=== PATIENT | female | born 1950 | race Caucasian/White ===

== ENCOUNTER → 2017-07-30 | Day surgery (SDC) | END | disposition home or self-care (01) | DX: C10.9 Malignant neoplasm of oropharynx, unspecified (principal); I10 Essential (primary) hypertension; F17.200 Nicotine dependence, unspecified, uncomplicated | CPT/HCPCS: 00320; 31535; 88305; 93005; J0295; J0330; J2250; J3010; J7120 ==

== ENCOUNTER 2017-09-29 17:19 | Inpatient (IN) ==
--- NOTE | 2017-09-29 20:29 | ED ---
HPI General Chief complaint: Neuro Symptoms/Deficit Stated complaint: Confusion/lost vision/ DR SENT Time Seen by Provider: 09/29/17 20:05 History of Present Illness HPI narrative: Patient 67-year-old female presents to the emergency department for evaluation of confusion as well as vision loss. Accompanied by her daughter who states the patient has a history of throat cancer followed by . jovita is doing frequent radiation therapy but no chemotherapy. 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 She went to Dr. dorado office today and that her level of confusion was referred to the emergency department. Patient has been taking benzodiazepines prior to her radiation therapy. Daughter states that she has not been taking excess of this. She has been acting very drowsy however. She is alert and awake and oriented to self time and place but not situation. Appears groggy slow to answer but is keenly alert. Location: eyes Radiation: non-radiation Severity: moderate Pain Consistency: constant Relieving factors: none Exacerbating factors: none Associated symptoms: confusion Related Data Home Medications Medication Instructions Recorded Confirmed amlodipine 5 mg PO DAILY 09/30/17 09/30/17 hydrochlorothiazide 12.5 mg PO DAILY 09/30/17 09/30/17 hydrocodone-acetaminophen 1 ml PO Q4-6H PRN 09/30/17 09/30/17 lorazepam 1 mg PO DAILY 09/30/17 09/30/17 metoprolol succinate 25 mg PO DAILY 09/30/17 09/30/17 mouthwash compounding base 227 5 ml MUCOUS MEMBRANE ACHS 09/30/17 09/30/17 Allergies Allergy/AdvReac Type Severity Reaction Status Date / Time No Known Allergies Allergy Unverified 07/29/17 12:09 Review of Systems ROS Unobtainable unobtainable due to mental status PMFSH Medical History Medical History Hypertension (Acute) Osteoporosis (Acute) Retina disorder, right (Acute) Throat cancer (Acute) Surgical History Surgical History No history of previous surgery (Acute) Social History Social History Substance History: No History of Abuse Second Hand Smoke Exposure: No Smoking Status: Current every day smoker Tobacco Type: Cigarettes How Often Do You Have a Drink Containing Alcohol: Monthly or less Recent Travel in [facility] within the Last 8 Weeks: No Recent Out of Country Travel within the Last 8 Weeks: No Exam Narrative Exam Narrative: GENERAL: Well-developed very thin female in no obvious distress peer SKIN: Focused skin assessment warm/dry. HEAD: Atraumatic. Normocephalic. EYES: Pupils equal and round. No scleral icterus. No injection or drainage. ENT: No nasal bleeding or discharge. Mucous membranes pink and moist. NECK: Trachea midline. No JVD. CARDIOVASCULAR: Regular rate and rhythm. No murmur appreciated. RESPIRATORY: No accessory muscle use. Clear to auscultation. Breath sounds equal bilaterally. GASTROINTESTINAL: Abdomen soft, non-tender, nondistended. Hepatic and splenic margins not palpable. MUSCULOSKELETAL: No obvious deformities. No clubbing. No cyanosis. No edema. NEUROLOGICAL: Awake and alert, GCS of 14, mildly confused and somewhat slow to respond. Cranial nerves appear to be all intact, extraocular movements are normal. Does not cooperate well with visual field testing. She is oriented to person place and time, fairly poor insight into why she is here. Follows commands in all 4 extremities with no weakness appreciated. PSYCHIATRIC: Appropriate mood and affect; insight and judgment are poor. Course Initial Documented Vital Signs Temperature 99.0 F 09/29/17 17:29 Pulse Rate 88 09/29/17 17:29 Respiratory Rate 18 09/29/17 17:29 Blood Pressure 143/65 H 09/29/17 17:29 Pulse Oximetry 98 09/29/17 17:29 Last Documented Vital Signs Temperature 97.6 F 09/30/17 02:53 Pulse Rate 84 09/30/17 05:52 Respiratory Rate 14 09/30/17 05:52 Blood Pressure 130/69 09/30/17 05:52 Pulse Oximetry 97 09/29/17 23:00 Medical Decision Making [facility] Narrative Medical decision making narrative: Patient room to the emergency department, CT of the head shows evidence of recent right MCA stroke which would explain her symptoms. Aspirin was given in the emergency department, she was out of the window for any stroke alert, vision is somewhat intact at least in the left thigh as evidenced by her ability to follow my finger during extract movement testing. No focal weakness otherwise. Patient was discussed her results and updated her daughter as well. Recommended admission to the hospital and they are agreeable. Discussed with Dr. Ernst. Differential Diagnosis Differential Diagnosis: Acute CVA, brain mass, throat cancer, electrolyte abnormality Lab Data Result diagrams: 09/29/17 20:35 09/29/17 20:35 Lab Results 09/29/17 09/29/17 09/29/17 Range/Units 20:10 20:35 20:35 WBC (4.0-11.0) th/mm3 RBC (4.00-5.30) mil/mm3 Hgb (11.6-15.3) gm/dL Hct (35.0-46.0) % MCV (80.0-100.0) fL MCH (27.0-34.0) pg MCHC (32.0-36.0) % RDW (11.6-17.2) % Plt Count (150-450) th/mm3 MPV (7.0-11.0) fL Neut % (Auto) (16.0-70.0) % Lymph % (Auto) (9.0-44.0) % [place] % (Auto) (0.0-8.0) % Eos % (Auto) (0.0-4.0) % Baso % (Auto) (0.0-2.0) % Neut # (Auto) (1.8-7.7) th/mm3 Lymph # (Auto) (1.0-4.8) th/mm3 [place] # (Auto) (0.0-0.9) th/mm3 Eos # (Auto) (0.0-0.4) th/mm3 Baso # (Auto) (0.0-0.2) th/mm3 WBC Differential Differential Comment PT 10.6 (9.8-11.6) sec INR 1.0 Ratio APTT 25.4 (24.3-30.1) sec Sodium (136-145) meq/L Potassium (3.5-5.1) meq/L Chloride (98-107) meq/L Carbon Dioxide (21.0-32.0) meq/L Anion Gap (5-15) meq/L BUN (7-18) mg/dL Creatinine (0.50-1.00) mg/dL Estimated GFR (>89) mL/min POC Glucose 120 H (68-110) mg/dl Random Glucose (74-106) mg/dL Lactic Acid (0.4-2.0) mmol/L Calcium (8.5-10.1) mg/dL Total Bilirubin (0.2-1.0) mg/dL AST (15-37) U/L ALT (10-53) U/L Alkaline Phosphatase (45-117) U/L Ammonia (11-32) mcmol/L Total Creatine Kinase (26-192) U/L Troponin I (0.02-0.05) ng/mL Total Protein (6.4-8.2) g/dL Albumin (3.4-5.0) g/dL TSH 0.079 L (0.358-3.740) uIU/mL Urine Color (Yellw/Straw) Urine Clarity (Clear) Urine pH (5.0-8.5) Ur Specific Mitchell (1.002-1.035) Urine Protein (Neg-Trace) mg/dL Urine Glucose (UA) (Negative) mg/dL Urine Ketones (Negative) mg/dL Urine Occult Blood (Negative) Urine Nitrate (Negative) Urine Bilirubin (Negative) Urine Urobilinogen (Less than 2) mg/dL Ur Leukocyte Esterase (Negative) Urine RBC (0-3) /hpf Urine WBC (0-5) /hpf Ur Squamous Epith Cells (0-5) /hpf Hyaline Casts (0-3) /lpf Urine Mucus (Occasional) /lpf Micro UA Comment Urine Culture Comments 09/29/17 09/29/17 09/29/17 Range/Units 20:35 20:35 20:55 WBC 5.3 (4.0-11.0) th/mm3 RBC 3.81 L (4.00-5.30) mil/mm3 Hgb 12.1 (11.6-15.3) gm/dL Hct 36.3 (35.0-46.0) % MCV 95.3 (80.0-100.0) fL MCH 31.8 (27.0-34.0) pg MCHC 33.4 (32.0-36.0) % RDW 13.5 (11.6-17.2) % Plt Count 260 (150-450) th/mm3 MPV 8.1 (7.0-11.0) fL Neut % (Auto) 69.2 (16.0-70.0) % Lymph % (Auto) 17.6 (9.0-44.0) % [place] % (Auto) 11.8 H (0.0-8.0) % Eos % (Auto) 1.1 (0.0-4.0) % Baso % (Auto) 0.3 (0.0-2.0) % Neut # (Auto) 3.7 (1.8-7.7) th/mm3 Lymph # (Auto) 0.9 L (1.0-4.8) th/mm3 [place] # (Auto) 0.6 (0.0-0.9) th/mm3 Eos # (Auto) 0.1 (0.0-0.4) th/mm3 Baso # (Auto) 0.0 (0.0-0.2) th/mm3 WBC Differential . Differential Comment Auto diff final PT (9.8-11.6) sec INR Ratio APTT (24.3-30.1) sec Sodium 138 (136-145) meq/L Potassium 3.2 L (3.5-5.1) meq/L Chloride 98 (98-107) meq/L Carbon Dioxide 28.4 (21.0-32.0) meq/L Anion Gap 12 (5-15) meq/L BUN 8 (7-18) mg/dL Creatinine 0.50 (0.50-1.00) mg/dL Estimated GFR Greater than 89 (>89) mL/min POC Glucose (68-110) mg/dl Random Glucose 94 (74-106) mg/dL Lactic Acid 1.1 (0.4-2.0) mmol/L Calcium 9.7 (8.5-10.1) mg/dL Total Bilirubin 0.7 (0.2-1.0) mg/dL AST 16 (15-37) U/L ALT 24 (10-53) U/L Alkaline Phosphatase 62 (45-117) U/L Ammonia (11-32) mcmol/L Total Creatine Kinase 27 (26-192) U/L Troponin I Less than 0.02 L (0.02-0.05) ng/mL Total Protein 7.5 (6.4-8.2) g/dL Albumin 3.7 (3.4-5.0) g/dL TSH (0.358-3.740) uIU/mL Urine Color (Yellw/Straw) Urine Clarity (Clear) Urine pH (5.0-8.5) Ur Specific Mitchell (1.002-1.035) Urine Protein (Neg-Trace) mg/dL Urine Glucose (UA) (Negative) mg/dL Urine Ketones (Negative) mg/dL Urine Occult Blood (Negative) Urine Nitrate (Negative) Urine Bilirubin (Negative) Urine Urobilinogen (Less than 2) mg/dL Ur Leukocyte Esterase (Negative) Urine RBC (0-3) /hpf Urine WBC (0-5) /hpf Ur Squamous Epith Cells (0-5) /hpf Hyaline Casts (0-3) /lpf Urine Mucus (Occasional) /lpf Micro UA Comment Urine Culture Comments 09/29/17 09/29/17 09/29/17 Range/Units 20:55 21:46 23:43 WBC (4.0-11.0) th/mm3 RBC (4.00-5.30) mil/mm3 Hgb (11.6-15.3) gm/dL Hct (35.0-46.0) % MCV (80.0-100.0) fL MCH (27.0-34.0) pg MCHC (32.0-36.0) % RDW (11.6-17.2) % Plt Count (150-450) th/mm3 MPV (7.0-11.0) fL Neut % (Auto) (16.0-70.0) % Lymph % (Auto) (9.0-44.0) % [place] % (Auto) (0.0-8.0) % Eos % (Auto) (0.0-4.0) % Baso % (Auto) (0.0-2.0) % Neut # (Auto) (1.8-7.7) th/mm3 Lymph # (Auto) (1.0-4.8) th/mm3 [place] # (Auto) (0.0-0.9) th/mm3 Eos # (Auto) (0.0-0.4) th/mm3 Baso # (Auto) (0.0-0.2) th/mm3 WBC Differential Differential Comment PT (9.8-11.6) sec INR Ratio APTT (24.3-30.1) sec Sodium (136-145) meq/L Potassium (3.5-5.1) meq/L Chloride (98-107) meq/L Carbon Dioxide (21.0-32.0) meq/L Anion Gap (5-15) meq/L BUN (7-18) mg/dL Creatinine (0.50-1.00) mg/dL Estimated GFR (>89) mL/min POC Glucose 100 (68-110) mg/dl Random Glucose (74-106) mg/dL Lactic Acid (0.4-2.0) mmol/L Calcium (8.5-10.1) mg/dL Total Bilirubin (0.2-1.0) mg/dL AST (15-37) U/L ALT (10-53) U/L Alkaline Phosphatase (45-117) U/L Ammonia Less than 10 L (11-32) mcmol/L Total Creatine Kinase (26-192) U/L Troponin I (0.02-0.05) ng/mL Total Protein (6.4-8.2) g/dL Albumin (3.4-5.0) g/dL TSH (0.358-3.740) uIU/mL Urine Color Shi (Yellw/Straw) Urine Clarity Turbid H (Clear) Urine pH 7.0 (5.0-8.5) Ur Specific Mitchell 1.005 (1.002-1.035) Urine Protein Negative (Neg-Trace) mg/dL Urine Glucose (UA) Negative (Negative) mg/dL Urine Ketones 20 (Negative) mg/dL Urine Occult Blood Small H (Negative) Urine Nitrate Negative (Negative) Urine Bilirubin Negative (Negative) Urine Urobilinogen Less than 2 (Less than 2) mg/dL Ur Leukocyte Esterase Small H (Negative) Urine RBC Less than 1 (0-3) /hpf Urine WBC 8 H (0-5) /hpf Ur Squamous Epith Cells 2 (0-5) /hpf Hyaline Casts 1 (0-3) /lpf Urine Mucus Few H (Occasional) /lpf Micro UA Comment Culture not ind Urine Culture Comments Culture not ind Imaging Data Radiologist's impression: ITS Impressions Head CT 09/29/17 20:05 CONCLUSION: 1. Suspected very recent areas of infarction involving the posterior right middle cerebral artery territory involving portions of the right temporal parietal and occipital lobes. There also appears to be smaller recent infarct seen in the posterior medial left occipital lobe. 2. Suspected underlying small vessel ischemic change in the white matter. Head MRI 09/29/17 22:13 CONCLUSION: 1. MRI examination confirms CT findings. There is acute infarction involving the right posterior temporal, parietal mid convexities, and anterior occipital mid convexities as well as the medial left occipital lobe. 2. No acute hemorrhage, herniation or mass. 3. Moderate periventricular ischemic white matter demyelination. Head MRA 09/29/17 22:13 CONCLUSION: 1. Occluded origin of the right MCA temporal branch with opacification of the more distal M2 branches likely via collaterals. 2. Occluded left posterior cerebral artery. 3. Occluded distal left vertebral artery. Discharge Plan Discharge Disposition Patient Disposition: 30 Still Patient Discharge Details Diagnosis: Stroke Physicians Team ED Provider: Frankie Perez Primary Care Provider: NON STAFF,PROVIDER Attending Provider: Cathy Schneider Other Providers: ; Paolo Gonzalez ; Amaury Lopez ; Malvin Warren Status ED Status: Admitted Patient
[2017-09-29 20:53] LABS: Baso % (Auto) 0.3 % (0.0-2.0); Eos # (Auto) 0.1 th/mm3 (0.0-0.4); Eos % (Auto) 1.1 % (0.0-4.0); Hematocrit 36.3 % (35.0-46.0); Hemoglobin 12.1 gm/dL (11.6-15.3); Lymph # (Auto) 0.9 th/mm3 (1.0-4.8); Lymph % (Auto) 17.6 % (9.0-44.0); Mean Corpuscular HGB Conc 33.4 % (32.0-36.0); Mean Corpuscular Hemoglobin 31.8 pg (27.0-34.0); Mean Corpuscular Volume 95.3 fL (80.0-100.0); Mean Platelet Volume 8.1 fL (7.0-11.0); Mono # (Auto) 0.6 th/mm3 (0.0-0.9); Mono % (Auto) 11.8 % (0.0-8.0); Neut # (Auto) 3.7 th/mm3 (1.8-7.7); Neut % (Auto) 69.2 % (16.0-70.0); Platelet Count 260 th/mm3 (150-450); Red Blood Count 3.81 mil/mm3 (4.00-5.30); Red Cell Distribution Width 13.5 % (11.6-17.2); White Blood Count 5.3 th/mm3 (4.0-11.0)
[2017-09-29 21:00] LABS: Activated Partial Thrombo Time 25.4 sec (24.3-30.1); Prothrombin Time 10.6 sec (9.8-11.6)
[2017-09-29 21:10] LABS: Albumin 3.7 g/dL (3.4-5.0); Anion Gap 12 meq/L (5-15); Aspartate Aminotransferase 16 U/L (15-37); Blood Urea Nitrogen 8 mg/dL (7-18); Calcium 9.7 mg/dL (8.5-10.1); Carbon Dioxide 28.4 meq/L (21.0-32.0); Chloride 98 meq/L (98-107); Glomerular Filtration Rate Greater Than 89 mL/min (>89); Glucose,Random 94 mg/dL (74-106); Potassium 3.2 meq/L (3.5-5.1); Sodium 138 meq/L (136-145)
[2017-09-29 21:14] LABS: Alanine Aminotransferase 24 U/L (10-53); Alkaline Phosphatase 62 U/L (45-117); Total Protein 7.5 g/dL (6.4-8.2)
[2017-09-29 21:24] LABS: Creatine Kinase 27 U/L (26-192)
--- NOTE | 2017-09-29 21:38 | CT ---
EXAM DATE: 09/29/2017 8:36 PM EDT AGE/SEX: 67 years / Female INDICATIONS: Confusion and loss of vision. CLINICAL DATA: This is the patient's initial encounter. Patient reports that signs and symptoms have been present for 1 day and indicates a pain score of 0/10. MEDICAL/SURGICAL HISTORY: Hypertension. Esophageal cancer. Stroke. Chemotherapy. . RADIATION DOSE: 37.12 CTDI (mGy) COMPARISON: No prior exams available for comparison. TECHNIQUE: CT of the head without contrast. Using automated exposure control and adjustment of the mA and/or kV according to patient size, radiation dose was kept as low as reasonably achievable to ob tain optimal diagnostic quality images. DICOM format image data is available electronically for revi ew and comparison. FINDINGS: Cerebrum: The ventricles are normal for age. There is an area of low density seen in the right post erior temporal, posterior parietal lobe and extending into the anterior right occipital lobe at the p osterior middle cerebral artery territory consistent with a very recent infarct. There also appears t o be some low density in the posterior medial left occipital lobe presumably from recent infarct. No hemorrhage is seen. No evidence of midline shift. No extraaxial fluid collections are seen. There is areas of decreased density in the cerebral white matter. Posterior Fossa: The cerebellum and brainstem are intact. The 4th ventricle is midline. The cerebe llopontine angle is unremarkable. Extracranial: The visualized portion of the orbits is intact. Skull: The calvaria is intact. No evidence of skull fracture. CONCLUSION: 1. Suspected very recent areas of infarction involving the posterior right middle cerebral artery te rritory involving portions of the right temporal parietal and occipital lobes. There also appears to be smaller recent infarct seen in the posterior medial left occipital lobe. 2. Suspected underlying small vessel ischemic change in the white matter. Electronically signed by: Simeon Booth MD 09/29/2017 9:37 PM EDT
[2017-09-29 23:00] LABS: Bilirubin,Urine Negative (Negative); Clarity,Urine Turbid (Clear); Color,Urine Amber (Yellw/Straw); Glucose,Urine (UA) Negative (Negative); Hyaline Casts,Urine 1 /lpf (0-3); Leukocyte Esterase,Urine Small (Negative); Mucus,Urine Few /lpf (Occasional); Nitrite,Urine Negative (Negative); Specific Gravity,Urine 1.005 (1.002-1.035); Squamous Epithelial Cell,Urine 2 /hpf (0-5)
[2017-09-29] MEDS ORDERED: Dextrose 50% in Water 50 ML Vial IV.PUSH PRN ×2 (23:19→23:20)
--- NOTE | 2017-09-29 23:37 | MR ---
EXAM DATE: 09/29/2017 11:26 PM EDT AGE/SEX: 67 years / Female INDICATIONS: Stroke. Loss of vision in left eye x 2 days CLINICAL DATA: This is the patient's initial encounter. Patient reports that signs and symptoms have been present for 1 day and indicates a pain score of 0/10. MEDICAL/SURGICAL HISTORY: . HTN, Throat Ca . Radiation COMPARISON: [facility] – [place], [place] HEAD W/O CONTRAST, 09/29/2017. . TECHNIQUE: Multiplanar, multisequence examination of the brain was performed without contrast. FINDINGS: Cerebrum: The ventricles are normal for age. No evidence of midline shift, mass lesion, or hemorrha ge. No extraaxial fluid collections are seen. The pituitary gland and suprasellar cistern are normal in configuration. White Matter: Moderate periventricular and focal deep white matter T2 prolongation. Posterior Fossa: The cerebellum and brainstem are intact. The 4th ventricle is midline. The cerebel lopontine angle is unremarkable. The cerebellar tonsils are normal in position. Diffusion Imaging: Restricted diffusion involving the right cephalad posterior temporal, parietal mi d convexities, and anterior occipital mid convexities. There is also more subtle restricted diffusion involving the medial left occipital lobe. Extracranial: The visualized portions of the orbits and paranasal sinuses are unremarkable. CONCLUSION: 1. MRI examination confirms CT findings. There is acute infarction involving the right posterior tem poral, parietal mid convexities, and anterior occipital mid convexities as well as the medial left oc cipital lobe. 2. No acute hemorrhage, herniation or mass. 3. Moderate periventricular ischemic white matter demyelination. Electronically signed by: Alon Schilling MD 09/29/2017 11:36 PM EDT
--- NOTE | 2017-09-29 23:51 | MR ---
EXAM DATE: 09/29/2017 11:40 PM EDT AGE/SEX: 67 years / Female INDICATIONS: Stroke. Loss of vision in left eye x 2 days. CLINICAL DATA: This is the patient's initial encounter. Patient reports that signs and symptoms have been present for 1 day and indicates a pain score of 0/10. MEDICAL/SURGICAL HISTORY: . HTN, Throat Ca . [place] [facility] [place]/2017. . TECHNIQUE: 3D [id number] MRA was performed. Source images, multiplanar STS MIP, and 3D volum e MIP reconstructions were reviewed. FINDINGS: Anterior Circulation: Intracranial Carotid Arteries: Patent. CURRY: There is no evidence for aneurysm, vessel truncation or stenosis, and no evidence for vascular m alformation. MCA: Temporal branch of the right MCA appears occluded at the origin. Distal M2 branches are opacifie d. There is no evidence for aneurysm or vascular malformation. Posterior Circulation: Distal Vertebral Arteries: Distal left vertebral artery is not visualized and likely occluded. Basilar Artery: There is no evidence for aneurysm, vessel truncation or stenosis, and no evidence for vascular malformation. ACCESS CLINICIAN and Cerebellar Branches: Left posterior cerebral artery appears occluded. The right posterior alicia tebral artery is patent without evidence for significant flow-limiting stenosis or aneurysm. CONCLUSION: 1. Occluded origin of the right MCA temporal branch with opacification of the more distal M2 branche s likely via collaterals. 2. Occluded left posterior cerebral artery. 3. Occluded distal left vertebral artery. Electronically signed by: Alon Schilling MD 09/29/2017 11:50 PM EDT
[2017-09-30] MEDS ORDERED: Morphine Inj 4 MG/ML Vial IV.PUSH PRN (04:19)
--- NOTE | 2017-09-30 04:21 | P.HP ---
History of Present Illness Service: [facility] Primary Care Physician: PROVIDER NON STAFF Chief Complaint: Confusion/vision loss History of Present Illness: 67-year-old female with a past medical history significant for throat cancer currently undergoing radiation therapy presents to the emergency department for the evaluation of altered mental status and visual changes. The patient is blind in her right eye and her daughter who provides most of her medical history states this is because the right eye "" 6 months ago, secondary to a stroke. She is unable to tell me the exact pathology. The daughter reports that yesterday her brother noticed that his mother was confused and acting strange. She also began to complain of visual changes in her left eye. While at work earlier yesterday the patient called her daughter and said that she could not see at all. She also has been confused and disoriented repeating the same statements and not oriented to time or location. The patient's daughter took her to a retina specialist who stated there was nothing wrong with her eye. She went to her radiation treatment and saw Dr. Lopez who recommended immediate transfer to the emergency department for further evaluation. MRI significant for acute stroke. Inpatient Certification: I certify that the inpatient services were ordered in accordance with Medicare regulations governing the order. This includes certification that hospital inpatient services are reasonable and necessary and in the case of services not specified as inpatient-only under 42 CFR 419.22(n), that they are appropriately provided as inpatient services in accordance to with the 2-midnight benchmark under 43 CFR 412.3(e) Estimated Total Length of Stay (Days): 2 Plans for Post Hospital Care: Not yet determined Review of Systems All other systems reviewed negative except as stated in HPI [facility] - History History Provided By: Family Member - Medical History Medical History: Medical History (Last Updated 09/29/17 @ 20:28 by Kevin Cheema RN) Hypertension Osteoporosis Retina disorder, right Throat cancer - Surgical History Surgical History: Surgical History (Last Updated 09/29/17 @ 20:28 by Kevin Cheema RN) No history of previous surgery - Tobacco History Second Hand Smoke Exposure: No Tobacco Use In Past 30 Days: Yes Smoking Status: Current every day smoker Tobacco Type: Cigarettes - Alcohol History How Often Do You Have a Drink Containing Alcohol: Monthly or less - Substance Use History Substance History: No History of Abuse - Travel History Recent Travel in the [place] Within the Last 8 Weeks: No Recent Travel Out of the Country Within the Last 8 Weeks: No - Immunization History Tetanus Immunization: Unsure Hx Influenza Vaccine This Season: No Medications and Allergies Active Medications: Active Medications Aspirin (Aspirin) 325 mg PO DAILY ANAIS Dextrose (D50w Vial) 50 ml IV.PUSH UNSCH PRN PRN Reason: PER HYPOGLYCEMIA PROTOCOL Dextrose (D50w Vial) 50 ml IV.PUSH UNSCH PRN PRN Reason: PER HYPOGLYCEMIA PROTOCOL Glucagon (Glucagon Inj) 1 mg OTHER UNSCH PRN PRN Reason: for Hypoglycemia Protocol Glucagon (Glucagon Inj) 1 mg OTHER PRN PRN PRN Reason: for Hypoglycemia Protocol Insulin Aspart (Novolog Insulin Suppl Scale Inj) 0 unit SQ ACHS AND 3AM ANAIS; Protocol Sodium Chloride (Ns Flush) 2 ml IV.FLUSH PRN PRN PRN Reason: FLUSH AFTER USING IV ACCESS Last Admin: 09/29/17 22:44 Dose: 2 ml Sodium Chloride (Ns Flush) 2 ml IV.FLUSH BID ANAIS Sodium Chloride (Ns Flush) 2 ml IV.FLUSH PRN PRN PRN Reason: FLUSH AFTER USING IV ACCESS Allergies Allergy/AdvReac Type Severity Reaction Status Date / Time No Known Allergies Allergy Unverified 07/29/17 12:09 Exam Vital signs: Vital Signs 09/29/17 17:29 09/29/17 20:26 09/29/17 20:40 Temperature 99.0 F Pulse Rate 88 Respiratory Rate 18 Blood Pressure 143/65 H Pulse Oximetry 98 98 98 09/29/17 22:14 09/29/17 23:00 09/30/17 02:53 Temperature 97.3 F L 97.3 F L 97.6 F Pulse Rate 97 H 75 72 Respiratory Rate 20 16 16 Blood Pressure 151/101 H 128/66 130/65 Pulse Oximetry 97 97 Intake & Output 09/29/17 09/29/17 09/30/17 06:59 18:59 06:59 Weight 54.431 kg 77.111 kg Narrative: Gen.: No acute distress Head: Normocephalic. Atraumatic. EENT: Pupils equal round and reactive to light. Nose without drainage. Airway intact. Throat without injection. Cardiovascular: Regular rate and rhythm. No murmurs, rubs or gallops. Respiratory: Lungs clear to auscultation bilaterally. No wheezes or rhonchi. Abdomen: Soft, nontender, nondistended. No peritoneal signs. Musculoskeletal: No gross deformities. No edema. Skin: No obvious rashes or erythema. Neuro: Slow to answer questions however ANO 3. 5/5 strength throughout. No facial droop or slurred speech. Unable to identify close vision objects. Results - Labs CBC & Chem 7: 09/29/17 20:35 09/29/17 20:35 Labs: Laboratory Results - last 24 hr 09/29/17 09/29/17 09/29/17 20:10 20:35 20:35 WBC RBC Hgb Hct MCV MCH MCHC RDW Plt Count MPV Neut % (Auto) Lymph % (Auto) [place] % (Auto) Eos % (Auto) Baso % (Auto) Neut # (Auto) Lymph # (Auto) [place] # (Auto) Eos # (Auto) Baso # (Auto) WBC Differential Differential Comment PT 10.6 INR 1.0 APTT 25.4 Sodium Potassium Chloride Carbon Dioxide Anion Gap BUN Creatinine Estimated GFR POC Glucose 120 H Random Glucose Lactic Acid Calcium Total Bilirubin AST ALT Alkaline Phosphatase Ammonia Total Creatine Kinase Troponin I Total Protein Albumin TSH 0.079 L Urine Color Urine Clarity Urine pH Ur Specific [place] Urine Protein Urine Glucose (UA) Urine Ketones Urine Occult Blood Urine Nitrate Urine Bilirubin Urine Urobilinogen Ur Leukocyte Esterase Urine RBC Urine WBC Ur Squamous Epith Cells Hyaline Casts Urine Mucus Micro UA Comment Urine Culture Comments 09/29/17 09/29/17 09/29/17 20:35 20:35 20:55 WBC 5.3 RBC 3.81 L Hgb 12.1 Hct 36.3 MCV 95.3 MCH 31.8 MCHC 33.4 RDW 13.5 Plt Count 260 MPV 8.1 Neut % (Auto) 69.2 Lymph % (Auto) 17.6 [place] % (Auto) 11.8 H Eos % (Auto) 1.1 Baso % (Auto) 0.3 Neut # (Auto) 3.7 Lymph # (Auto) 0.9 L [place] # (Auto) 0.6 Eos # (Auto) 0.1 Baso # (Auto) 0.0 WBC Differential . Differential Comment Auto diff final PT INR APTT Sodium 138 Potassium 3.2 L Chloride 98 Carbon Dioxide 28.4 Anion Gap 12 BUN 8 Creatinine 0.50 Estimated GFR Greater than 89 POC Glucose Random Glucose 94 Lactic Acid 1.1 Calcium 9.7 Total Bilirubin 0.7 AST 16 ALT 24 Alkaline Phosphatase 62 Ammonia Total Creatine Kinase 27 Troponin I Less than 0.02 L Total Protein 7.5 Albumin 3.7 TSH Urine Color Urine Clarity Urine pH Ur Specific [place] Urine Protein Urine Glucose (UA) Urine Ketones Urine Occult Blood Urine Nitrate Urine Bilirubin Urine Urobilinogen Ur Leukocyte Esterase Urine RBC Urine WBC Ur Squamous Epith Cells Hyaline Casts Urine Mucus Micro UA Comment Urine Culture Comments 09/29/17 09/29/17 09/29/17 20:55 21:46 23:43 WBC RBC Hgb Hct MCV MCH MCHC RDW Plt Count MPV Neut % (Auto) Lymph % (Auto) [place] % (Auto) Eos % (Auto) Baso % (Auto) Neut # (Auto) Lymph # (Auto) [place] # (Auto) Eos # (Auto) Baso # (Auto) WBC Differential Differential Comment PT INR APTT Sodium Potassium Chloride Carbon Dioxide Anion Gap BUN Creatinine Estimated GFR POC Glucose 100 Random Glucose Lactic Acid Calcium Total Bilirubin AST ALT Alkaline Phosphatase Ammonia Less than 10 L Total Creatine Kinase Troponin I Total Protein Albumin TSH Urine Color Shi Urine Clarity Turbid H Urine pH 7.0 Ur Specific [place] 1.005 Urine Protein Negative Urine Glucose (UA) Negative Urine Ketones 20 Urine Occult Blood Small H Urine Nitrate Negative Urine Bilirubin Negative Urine Urobilinogen Less than 2 Ur Leukocyte Esterase Small H Urine RBC Less than 1 Urine WBC 8 H Ur Squamous Epith Cells 2 Hyaline Casts 1 Urine Mucus Few H Micro UA Comment Culture not ind Urine Culture Comments Culture not ind - Imaging Impressions Head CT 09/29/17 20:05 CONCLUSION: 1. Suspected very recent areas of infarction involving the posterior right middle cerebral artery territory involving portions of the right temporal parietal and occipital lobes. There also appears to be smaller recent infarct seen in the posterior medial left occipital lobe. 2. Suspected underlying small vessel ischemic change in the white matter. Head MRI 09/29/17 22:13 CONCLUSION: 1. MRI examination confirms CT findings. There is acute infarction involving the right posterior temporal, parietal mid convexities, and anterior occipital mid convexities as well as the medial left occipital lobe. 2. No acute hemorrhage, herniation or mass. 3. Moderate periventricular ischemic white matter demyelination. Head MRA 09/29/17 22:13 CONCLUSION: 1. Occluded origin of the right MCA temporal branch with opacification of the more distal M2 branches likely via collaterals. 2. Occluded left posterior cerebral artery. 3. Occluded distal left vertebral artery. Caprini VTE Risk Assessment Caprini VTE Risk Assessment: Moderate/High Risk (score >= 2) Caprini Risk Assessment Model: Point Value = 1 Point Value = 2 Point Value = 3 Point Value = 5 Age 41-60 Minor surgery BMI > 25 kg/m2 Swollen legs Varicose veins or History of unexplained or recurrent spontaneous Oral contraceptives or hormone replacement Sepsis (< 1 month) Serious lung disease, including pneumonia (< 1 month) Abnormal pulmonary function Acute myocardial infarction Congestive heart failure (< 1 month) History of inflammatory bowel disease Medical patient at bed rest Age 61-74 Arthroscopic surgery Major open surgery (> 45 min) Laparoscopic surgery (> 45 min) Malignancy Confined to bed (> 72 hours) Immobilizing plaster cast Central venous access Age >= 75 History of VTE Family history of VTE Factor V Leiden Prothrombin [id number] Lupus anticoagulant Anticardiolipin antibodies Elevated serum homocysteine Heparin-induced thrombocytopenia Other congenital or acquired thrombophilia Stroke (< 1 month) Elective arthroplasty Hip, pelvis, or leg fracture Acute spinal cord injury (< 1 month) Prophylaxis Regimen: Total Risk Factor Score Risk Level Prophylaxis Regimen 0-1 Low Early ambulation 2 Moderate Order ONE of the following: *Sequential Compression Device (SCD) *Heparin 5000 units SQ BID 3-4 Higher Order ONE of the following medications: *Heparin 5000 units SQ TID *Enoxaparin/Lovenox 40 mg SQ daily (WT < 150 kg, CrCl > 30 mL/min) *Enoxaparin/Lovenox 30 mg SQ daily (WT < 150 kg, CrCl > 10-29 mL/min) *Enoxaparin/Lovenox 30 mg SQ BID (WT < 150 kg, CrCl > 30 mL/min) AND/OR *Sequential Compression Device (SCD) 5 or more Highest Order ONE of the following medications: *Heparin 5000 units SQ TID (Preferred with Epidurals) *Enoxaparin/Lovenox 40 mg SQ daily (WT < 150 kg, CrCl > 30 mL/min) *Enoxaparin/Lovenox 30 mg SQ daily (WT < 150 kg, CrCl > 10-29 mL/min) *Enoxaparin/Lovenox 30 mg SQ BID (WT < 150 kg, CrCl > 30 mL/min) AND *Sequential Compression Device (SCD) Assessment and Plan - Plan Assessment/plan: 1. CVA MRI of the brain showed acute infarction involving right posterior temporal, parietal and anterior occipital convexities as well as medial left occipital lobe Neurology consulted, appreciate recommendations Outside TPA window Aspirin PT/OT/speech Head of bed flat Permissive hypertension Aspirin 2. Throat cancer Patient would like to continue radiation therapy without delay Dr. Lopez radiation oncology consulted, appreciate assistance Morphine for pain 3. Hypokalemia Status post repletion Monitor BMP 4. Hypertension Permissive hypertension FEN N.p.o. Electrolytes: As above NS at 70 cc/hour
[2017-09-30] MEDS ORDERED: Potassium Chlor 20 mEq Premix 20 MEQ/100 ML PIGGYBACK IV.SIG SCH ×2 (04:30→11:45)
[2017-09-30] MEDS: Insulin NovoLOG Aspart Correctional Sugar Inj SQ SCH ×5 (05:39→23:37)
--- NOTE | 2017-09-30 08:48 | P.PN ---
Subjective Interval history: in no acute distress. says that her vision is slightly better today. no headache or any other new symptoms. daughter at the bedside. d/w the RN. Physical Exam Vital signs: Vital Signs 09/29/17 17:29 09/29/17 20:26 09/29/17 20:40 Temperature 99.0 F Pulse Rate 88 Respiratory Rate 18 Blood Pressure 143/65 H Pulse Oximetry 98 98 98 09/29/17 22:14 09/29/17 23:00 09/30/17 02:53 Temperature 97.3 F L 97.3 F L 97.6 F Pulse Rate 97 H 75 72 Respiratory Rate 20 16 16 Blood Pressure 151/101 H 128/66 130/65 Pulse Oximetry 97 97 09/30/17 05:52 Temperature Pulse Rate 84 Respiratory Rate 14 Blood Pressure 130/69 Pulse Oximetry Intake & Output 09/29/17 09/30/17 09/30/17 18:59 06:59 18:59 Weight 54.431 kg 77.111 kg - Constitutional no acute distress - Routine HEENT Exam Head: Present: atraumatic - Routine Neck Exam Present: supple, full ROM - Routine Respiratory Exam Present: CTA bilaterally - Routine Cardiovascular Exam Present: RRR - Routine Abdominal Exam Present: soft - Routine Extremities Exam Comments: no pedal edema. - Routine Neurological Exam Present: alert, oriented X3, moving all extremities Results - Labs CBC & Chem 7: 09/29/17 20:35 09/29/17 20:35 Laboratory Results - last 24 hr 09/29/17 09/29/17 09/29/17 20:10 20:35 20:35 WBC RBC Hgb Hct MCV MCH MCHC RDW Plt Count MPV Neut % (Auto) Lymph % (Auto) [place] % (Auto) Eos % (Auto) Baso % (Auto) Neut # (Auto) Lymph # (Auto) [place] # (Auto) Eos # (Auto) Baso # (Auto) WBC Differential Differential Comment PT 10.6 INR 1.0 APTT 25.4 Sodium Potassium Chloride Carbon Dioxide Anion Gap BUN Creatinine Estimated GFR POC Glucose 120 H Random Glucose Lactic Acid Calcium Total Bilirubin AST ALT Alkaline Phosphatase Ammonia Total Creatine Kinase Troponin I Total Protein Albumin TSH 0.079 L Urine Color Urine Clarity Urine pH Ur Specific [place] Urine Protein Urine Glucose (UA) Urine Ketones Urine Occult Blood Urine Nitrate Urine Bilirubin Urine Urobilinogen Ur Leukocyte Esterase Urine RBC Urine WBC Ur Squamous Epith Cells Hyaline Casts Urine Mucus Micro UA Comment Urine Culture Comments 09/29/17 09/29/17 09/29/17 20:35 20:35 20:55 WBC 5.3 RBC 3.81 L Hgb 12.1 Hct 36.3 MCV 95.3 MCH 31.8 MCHC 33.4 RDW 13.5 Plt Count 260 MPV 8.1 Neut % (Auto) 69.2 Lymph % (Auto) 17.6 [place] % (Auto) 11.8 H Eos % (Auto) 1.1 Baso % (Auto) 0.3 Neut # (Auto) 3.7 Lymph # (Auto) 0.9 L [place] # (Auto) 0.6 Eos # (Auto) 0.1 Baso # (Auto) 0.0 WBC Differential . Differential Comment Auto diff final PT INR APTT Sodium 138 Potassium 3.2 L Chloride 98 Carbon Dioxide 28.4 Anion Gap 12 BUN 8 Creatinine 0.50 Estimated GFR Greater than 89 POC Glucose Random Glucose 94 Lactic Acid 1.1 Calcium 9.7 Total Bilirubin 0.7 AST 16 ALT 24 Alkaline Phosphatase 62 Ammonia Total Creatine Kinase 27 Troponin I Less than 0.02 L Total Protein 7.5 Albumin 3.7 TSH Urine Color Urine Clarity Urine pH Ur Specific [place] Urine Protein Urine Glucose (UA) Urine Ketones Urine Occult Blood Urine Nitrate Urine Bilirubin Urine Urobilinogen Ur Leukocyte Esterase Urine RBC Urine WBC Ur Squamous Epith Cells Hyaline Casts Urine Mucus Micro UA Comment Urine Culture Comments 09/29/17 09/29/17 09/29/17 20:55 21:46 23:43 WBC RBC Hgb Hct MCV MCH MCHC RDW Plt Count MPV Neut % (Auto) Lymph % (Auto) [place] % (Auto) Eos % (Auto) Baso % (Auto) Neut # (Auto) Lymph # (Auto) [place] # (Auto) Eos # (Auto) Baso # (Auto) WBC Differential Differential Comment PT INR APTT Sodium Potassium Chloride Carbon Dioxide Anion Gap BUN Creatinine Estimated GFR POC Glucose 100 Random Glucose Lactic Acid Calcium Total Bilirubin AST ALT Alkaline Phosphatase Ammonia Less than 10 L Total Creatine Kinase Troponin I Total Protein Albumin TSH Urine Color Shi Urine Clarity Turbid H Urine pH 7.0 Ur Specific [place] 1.005 Urine Protein Negative Urine Glucose (UA) Negative Urine Ketones 20 Urine Occult Blood Small H Urine Nitrate Negative Urine Bilirubin Negative Urine Urobilinogen Less than 2 Ur Leukocyte Esterase Small H Urine RBC Less than 1 Urine WBC 8 H Ur Squamous Epith Cells 2 Hyaline Casts 1 Urine Mucus Few H Micro UA Comment Culture not ind Urine Culture Comments Culture not ind - Imaging Impressions Head CT 09/29/17 20:05 CONCLUSION: 1. Suspected very recent areas of infarction involving the posterior right middle cerebral artery territory involving portions of the right temporal parietal and occipital lobes. There also appears to be smaller recent infarct seen in the posterior medial left occipital lobe. 2. Suspected underlying small vessel ischemic change in the white matter. Head MRI 09/29/17 22:13 CONCLUSION: 1. MRI examination confirms CT findings. There is acute infarction involving the right posterior temporal, parietal mid convexities, and anterior occipital mid convexities as well as the medial left occipital lobe. 2. No acute hemorrhage, herniation or mass. 3. Moderate periventricular ischemic white matter demyelination. Head MRA 09/29/17 22:13 CONCLUSION: 1. Occluded origin of the right MCA temporal branch with opacification of the more distal M2 branches likely via collaterals. 2. Occluded left posterior cerebral artery. 3. Occluded distal left vertebral artery. Assessment and Plan - Assessment (1) Stroke Code(s): I63.9 - Cerebral infarction, unspecified Status: Acute Plan: continue aspirin- carotid doppler pending- will check echo and lipid panel- neurology consulted- will consult PT/ST. (2) Hypertension Code(s): I10 - Essential (primary) hypertension Status: Chronic Plan: permissive hypertension for now- will continue to monitor. 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 - Plan Discharge Planning: pending neurological w/u and neurology/PT evaluation. (1) Stroke Qualifiers: CVA mechanism: occlusion Precerebral and cerebral artery: middle cerebral artery Laterality of affected vessel: right Qualified Code(s): I63.511 - Cerebral infarction due to unspecified occlusion or stenosis of right middle cerebral artery (2) Hypertension Qualifiers: Hypertension type: essential hypertension Qualified Code(s): I10 - Essential (primary) hypertension
[2017-09-30] MEDS ORDERED: Sod Chloride 0.9% Inj 1,000 ML IV.CONT SCH (09:00)
[2017-09-30] MEDS: Morphine Inj 4 MG/ML Vial IV.PUSH PRN ×2 (09:57→15:55)
[2017-09-30] MEDS: Aspirin 325 MG Tablet PO SCH (10:00)
[2017-09-30 10:12] LABS: Chol/HDL Ratio 3.13 Ratio; HDL Cholesterol 61.2 mg/dL (40.0-60.0)
--- NOTE | 2017-09-30 10:27 | MB ---
cc: Paolo Christine MD DATE: 09/30/2017 HISTORY OF PRESENT ILLNESS: A 67-year-old left-handed woman with history of [id number] diabetes, some palpitations, throat cancer recently diagnosed in the last week or two. She has been on radiation to the neck by Dr. Lopez. She has been taking some Ativan with that. She has not been on aspirin. She had vision loss about a year ago in the right eye with evidently a central retinal artery occlusion. Then, about a month ago, she seemed to not see well peripherally with that eye, became somewhat blind in the eye and then Wednesday, she was a little bit confused and Wednesday, she said she had trouble seeing over to the left and was brought into the hospital. An MRI shows a moderate size right posterior MCA infarct and a left [employer] infarct. No hemorrhage. No recent chest pain. REVIEW OF SYSTEMS: No hypertension, hypercholesterolemia, [place], stent, angioplasty, AFib, Coumadin, CABG, renal, hepatic, pulmonary disease, thyroid disease, lupus, ulcer, seizure, prior stroke. SOCIAL HISTORY: She is a smoker and I have asked her to quit. She is not a drinker. She lives alone. FAMILY HISTORY: Negative for cancer, seizure, stroke. MEDICATIONS: She was not on aspirin at home. She was on hydrocodone, metoprolol, amlodipine, Ativan, hydrochlorothiazide. PHYSICAL EXAMINATION: VITAL SIGNS: On exam, she has been in sinus rhythm. Afebrile, 72, 16, 130/65. There were no carotid bruits. HEART: Regular rhythm. I did not detect a murmur. NEUROLOGIC: She is blind in the right eye. Visual mena are full in the left eye. Pupils are equal. Extraocular movements intact. Face is symmetric with normal sensation. Tongue was midline. She has normal strength in upper and lower extremities bilaterally. No drift. Toes are downgoing bilaterally. Pinprick was intact throughout as was done with simultaneous stimuli. She is awake and alert, knew the month. Speech is fluent. She is not aphasic. LABORATORY DATA: CBC is normal. UA shows 8 white cells. Basic metabolic profile ammonia was less than 10. Basic metabolic profile otherwise normal. LFTs normal. CPK, troponin, albumin normal. TSH slightly low at 0.08. Coags normal. MRA [place] shows some distal right MCA blockage and left [employer] blockage. She is right vertebral dominant. CT of the brain consistent with stroke, no hemorrhage. IMPRESSION: Bilateral infarcts, 2 different artery territories and I suspect probably cardioembolic. We will check an echo and a Holter. We will start her on some Coumadin and some subcutaneous heparin. We can get her up out of bed. MD ALICE Darnell/MERLY , 10:04 AM , 10:26 AM
[2017-09-30] MEDS: Heparin - SQ 10,000 UNITS/ML Vial SQ SCH ×2 (11:00→23:35)
--- NOTE | 2017-09-30 12:08 | US ---
EXAM DATE: 09/30/2017 11:50 AM EDT AGE/SEX: 67 years / Female INDICATIONS: Cerebrovascular accident. CLINICAL DATA: This is the patient's initial encounter. Patient reports that signs and symptoms have been present for 1 day and indicates a pain score of 0/10. MEDICAL/SURGICAL HISTORY: Hypertension. Osteoporosis. Throat cancer. None. COMPARISON: No prior exams available for comparison. VELOCITY PARAMETERS: ICA/CCA Ratio: Right 1.1 , Left 1.3 ICA: Right 79 cm/sec, Left 114 cm/sec CCA: Right 72 cm/sec, Left 89 cm/sec ECA: Right 120 cm/sec, Left 295 cm/sec Vertebral: Right 40 cm/sec antegrade, Left 29 cm/sec antegrade FINDINGS: Right Carotid: Mild arteriosclerotic plaque is visualized. There is soft plaque seen in the distal r ight common carotid artery there is plaque at the carotid bulb region.. An area of significant stenos is is not seen on the grayscale images.The waveforms are within normal limits. Left Carotid: Mild arteriosclerotic plaque is visualized. There is plaque seen at the carotid bulb r egion. An area of significant stenosis is not seen on the grayscale images. The waveforms are within normal limits. Other: There is a 1.5 cm right thyroid nodule at the lower pole. CONCLUSION: 1. Plaque seen bilaterally being more prominent on the right without definite significant stenosis i dentified. 2. 1.5 cm right thyroid nodule. Electronically signed by: Simeon Booth MD 09/30/2017 12:07 PM EDT
--- NOTE | 2017-09-30 13:27 | ECG ---
Date Performed: 09/29/2017 Time Performed: 20:22:29 PTAGE: 67 years EKG: Sinus rhythm POSSIBLE LEFT ATRIAL ENLARGEMENT BORDERLINE ECG Since the PREVIOUS TRACING , no significant change noted PREVIOUS TRACIN07/30/2017 06.10 DOCTOR: Kumar Fitzpatrick Interpretating Date/Time 09/30/2017 13:20:32
[2017-09-30] MEDS ORDERED: Gadobutrol PF 10 MMOL/10 ML Vial (for RAD) IV.SIG ONE (13:47)
--- NOTE | 2017-09-30 15:07 | MR ---
EXAM DATE: 09/30/2017 2:13 PM EDT AGE/SEX: 67 years / Female INDICATIONS: Stenosis. CLINICAL DATA: This is the patient's subsequent encounter. Patient reports that signs and symptoms h ave been present for 2 days and indicates a pain score of 0/10. MEDICAL/SURGICAL HISTORY: Carcinoma, esophageal. Hypertension. Osteoporosis. None. COMPARISON: No prior exams available for comparison. TECHNIQUE: 10 ml Gadavist (gadobutrol) contrast infused MRA (single exam dose) of the extracranial circulation was performed using a neurovascular coil. Postprocessing was performed, including rotati ng sub-volume maximum intensity projections of each carotid artery, rotating full-volume maximum inte nsity projections of both carotid arteries, sagittal and coronal sliding thin-slab reformations of ea ch carotid artery, and left oblique sliding thin-slab reformation through the aortic arch to include the origin of the arch branch vessels. FINDINGS: Aortic Arch : There is a three-vessel origin of the great vessels from the aorta. There is moderat e stenosis at the proximal aspect of the left subclavian artery with the lumen narrowed by at least 5 0%. Right Carotid : The common carotid artery is intact. There is a mild stenosis at the carotid bulb r egion narrowing the proximal internal carotid artery lumen by approximately 30%. The remaining aspec t of the internal carotid artery lumen is smooth without stenosis. The external carotid artery is in tact. Left Carotid : The common carotid artery is intact. There is a mild stenosis at the carotid bulb re gion narrowing the proximal internal carotid artery lumen by approximately 30%. The remaining aspect of the internal carotid artery lumen is smooth without stenosis. The external carotid artery is int act. Vertebrals : The left vertebral artery throughout the neck is not seen. The distal aspect of the lef t vertebral artery is seen. This may fill from the contralateral side. CONCLUSION: 1. Moderate stenosis at the proximal left subclavian artery. The lumen is narrowed by at least 50%. 2. Mild areas of stenosis at the carotid bulb regions bilaterally. 3. 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 The right vertebral artery appears larg e. It is responsible for filling the basilar artery. Percent stenosis is calculated using the diameter of the stenotic region over the diameter of the nor mal distal internal carotid artery Electronically signed by: Simeon Booth MD 09/30/2017 3:06 PM [facility]
[2017-09-30 17:04] LABS: Hemoglobin A1c 5.8 % (4.3-6.0)
[2017-10-01] MEDS: Sod Chloride 0.9% Inj 1,000 ML IV.CONT SCH ×4 (01:00→15:16)
[2017-10-01] MEDS: Insulin NovoLOG Aspart Correctional Sugar Inj SQ SCH ×4 (04:29→18:26)
--- NOTE | 2017-10-01 06:52 | P.PNNEU ---
Subjective Subjective Comments: No acute events reported No headache No chest pain No dyspnea sr Active Medications: Active Medications Hydrocodone Bitart/Acetaminophen (Hycet 325/7.5 Mg Liq) 15 ml PO Q4H PRN PRN Reason: Acute Pain Aspirin (Aspirin) 325 mg PO DAILY [facility] Last Admin: 09/30/17 10:00 Dose: 325 mg Dextrose (D50w Vial) 50 ml IV.PUSH UNSCH PRN PRN Reason: PER HYPOGLYCEMIA PROTOCOL Glucagon (Glucagon Inj) 1 mg OTHER PRN PRN PRN Reason: for Hypoglycemia Protocol Heparin Sodium (Porcine) (Heparin Inj) 5,000 units SQ Q12H [facility] Last Admin: 09/30/17 23:35 Dose: 5,000 units Sodium Chloride (Ns Inj) 1,000 mls @ 84 mls/hr IV.CONT .[id number] [facility] Last Admin: 10/01/17 04:28 Dose: Not Given Insulin Aspart (Novolog Insulin Suppl Scale Inj) 0 unit SQ ACHS AND 3AM [facility]; Protocol Last Admin: 10/01/17 04:29 Dose: Not Given Multi-Ingredient Mouthwash/Gargle (Magic Mouthwash Adult Liq) 5 ml SWISH-SPIT ACHS [facility] Patient Medication Teaching (Coumadin Booklet) 1 each OTHER UNSCH X1 [facility] Stop: 10/01/17 10:14 Sodium Chloride (Ns Flush) 2 ml IV.FLUSH BID [facility] Last Admin: 10/01/17 04:29 Dose: Not Given Sodium Chloride (Ns Flush) 2 ml IV.FLUSH PRN PRN PRN Reason: FLUSH AFTER USING IV ACCESS Warfarin Sodium (Coumadin) 5 mg PO DAILY@1600 [facility] Last Admin: 09/30/17 16:27 Dose: 5 mg Allergies/Adverse Reactions: Allergies Allergy/AdvReac Type Severity Reaction Status Date / Time No Known Allergies Allergy Unverified 07/29/17 12:09 Physical Exam Vital signs: Vital Signs 09/30/17 07:00 09/30/17 08:00 09/30/17 12:00 Temperature Pulse Rate 78 80 74 Respiratory Rate 21 18 15 Blood Pressure 140/73 135/64 145/62 H Pulse Oximetry 09/30/17 17:01 09/30/17 21:00 09/30/17 23:19 Temperature 98.5 F 98.0 F Pulse Rate 79 76 74 Respiratory Rate 20 14 Blood Pressure 183/77 H 152/70 H Pulse Oximetry 97 96 10/01/17 00:00 10/01/17 04:00 Temperature 98.0 F 100.1 F H Pulse Rate 79 121 H Respiratory Rate 17 20 Blood Pressure 113/60 115/80 Pulse Oximetry 95 96 Intake & Output 09/30/17 09/30/17 10/01/17 06:59 18:59 06:59 Weight 77.111 kg Narrative: sees well to left moves all ext nl nl speech awake alert Objective Laboratory Results - last 24 hr 09/30/17 09/30/17 09/30/17 07:36 07:36 07:36 ESR 38 H POC Glucose Hemoglobin A1c 5.8 Triglycerides 112 Cholesterol 192 LDL Cholesterol, Calc 108 H HDL Cholesterol 61.2 H Cholesterol/HDL Ratio 3.13 Vitamin B12 09/30/17 09/30/17 09/30/17 08:49 12:07 13:35 ESR POC Glucose 71 79 Hemoglobin A1c Triglycerides Cholesterol LDL Cholesterol, Calc HDL Cholesterol Cholesterol/HDL Ratio Vitamin B12 1010 H 09/30/17 09/30/17 10/01/17 16:01 21:15 04:25 ESR POC Glucose 83 86 78 Hemoglobin A1c Triglycerides Cholesterol LDL Cholesterol, Calc HDL Cholesterol Cholesterol/HDL Ratio Vitamin B12 Review/Management - Review/Management Plan: imp bilat cva acute plan is coumadin and dc heparin and asa when inr >1.9 oob ok may need rehab she could go to rehab if they dose her coumadin and check inr daily and md there knows she was just started on coumadin o/w keep here MEDICAL TEAM PLEASE DOSE COUMADIN DAILY fu echo and holter
[2017-10-01 08:08] LABS: INR 1.3 Ratio; Prothrombin Time 12.7 sec (9.8-11.6)
[2017-10-01] MEDS: Acetaminophen-HYDROcodone 325/7.5 Liq 15 ML UDC PO PRN ×3 (08:54→16:51)
[2017-10-01] MEDS: Aspirin 325 MG Tablet PO SCH (08:55)
[2017-10-01] MEDS: Nystatin/Diphenhydramine/Lidocaine Mouthwash (Adult) 120 ML Botttle SWISH-SPIT SCH ×3 (08:55→16:52)
[2017-10-01] MEDS: Heparin - SQ 10,000 UNITS/ML Vial SQ SCH (11:47)
--- NOTE | 2017-10-01 12:01 | P.PNIM ---
Subjective Interval history: f/u; CVA in no acute distress. feels and looks much better today. vision has improved. daughter at the bedside. d/w the RN. Physical Exam Vital signs: Vital Signs 09/30/17 12:00 09/30/17 17:01 09/30/17 21:00 Temperature 98.5 F 98.0 F Pulse Rate 74 79 76 Respiratory Rate 15 20 14 Blood Pressure 145/62 H 183/77 H 152/70 H Pulse Oximetry 97 96 09/30/17 23:19 10/01/17 00:00 10/01/17 04:00 Temperature 98.0 F 100.1 F H Pulse Rate 74 79 121 H Respiratory Rate 17 20 Blood Pressure 113/60 115/80 Pulse Oximetry 95 96 10/01/17 08:00 10/01/17 10:48 Temperature 98.8 F Pulse Rate 79 Respiratory Rate 20 Blood Pressure 171/72 H Pulse Oximetry 96 96 Intake & Output 09/30/17 10/01/17 10/01/17 18:59 06:59 18:59 Intake Total 50 / 50 Balance 50 / 50 Intake: Oral 50 / 50 - Constitutional no acute distress - Routine Respiratory Exam Present: CTA bilaterally - Routine Cardiovascular Exam Present: RRR - Routine Abdominal Exam Present: soft - Routine Extremities Exam Comments: no pedal edema. - Routine Neurological Exam Present: alert, oriented X3 Results - Labs CBC & Chem 7: 09/29/17 20:35 09/29/17 20:35 Laboratory Results - last 24 hr 09/30/17 09/30/17 09/30/17 07:36 07:36 12:07 ESR 38 H PT INR POC Glucose 79 Hemoglobin A1c 5.8 Vitamin B12 RPR 09/30/17 09/30/17 09/30/17 13:35 13:35 16:01 ESR PT INR POC Glucose 83 Hemoglobin A1c Vitamin B12 1010 H RPR Nonreactive 09/30/17 10/01/17 10/01/17 21:15 04:25 07:20 ESR PT 12.7 H INR 1.3 POC Glucose 86 78 Hemoglobin A1c Vitamin B12 RPR 10/01/17 10/01/17 10/01/17 08:57 10:44 11:50 ESR PT INR POC Glucose 70 100 91 Hemoglobin A1c Vitamin B12 RPR - Imaging Impressions Carotid Doppler Study 09/30/17 00:00 CONCLUSION: 1. Plaque seen bilaterally being more prominent on the right without definite significant stenosis identified. 2. 1.5 cm right thyroid nodule. Neck MRA 09/30/17 00:00 CONCLUSION: 1. Moderate stenosis at the proximal left subclavian artery. The lumen is narrowed by at least 50%. 2. Mild areas of stenosis at the carotid bulb regions bilaterally. 3. 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 The right vertebral artery appears large. It is responsible for filling the basilar artery. Percent stenosis is calculated using the diameter of the stenotic region over the diameter of the normal distal internal carotid artery Assessment and Plan - Assessment (1) Stroke Code(s): I63.9 - Cerebral infarction, unspecified Status: Acute Plan: started on Coumadin. will continue with subq Heparin and aspirin till INR is therapeutic- then will dc aspirin -per neurology- will add statin. echo and holter pending. (2) Hypertension Code(s): I10 - Essential (primary) hypertension Status: Chronic Plan: permissive hypertension for now- will continue to monitor. 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 - Plan Discharge Planning: needs rehab- (1) Stroke Qualifiers: CVA mechanism: occlusion Precerebral and cerebral artery: middle cerebral artery Laterality of affected vessel: right Qualified Code(s): I63.511 - Cerebral infarction due to unspecified occlusion or stenosis of right middle cerebral artery (2) Hypertension Qualifiers: Hypertension type: essential hypertension Qualified Code(s): I10 - Essential (primary) hypertension
[2017-10-01 12:40] LABS: Anion Gap 11 meq/L (5-15); Blood Urea Nitrogen 8 mg/dL (7-18); Calcium 8.3 mg/dL (8.5-10.1); Carbon Dioxide 25.6 meq/L (21.0-32.0); Chloride 105 meq/L (98-107); Chol/HDL Ratio 3.37 Ratio; Cholesterol 196 mg/dL (120-200); Glomerular Filtration Rate Greater Than 89 mL/min (>89); Glucose,Random 90 mg/dL (74-106); HDL Cholesterol 58.1 mg/dL (40.0-60.0); LDL Cholesterol,Calculated 104 mg/dL (0-99); Potassium 3.1 meq/L (3.5-5.1); Sodium 142 meq/L (136-145); Triglycerides 171 mg/dL (42-150)
--- NOTE | 2017-10-01 13:15 | ECHRPT ---
Indication: CVA/TIA CONCLUSIONS Normal left ventricular size. Wall thickness is normal. The left ventricular systolic function is hyperdynamic with an estimated ejection fraction in the ra nge of 65- 70%. No atrial level shunt is demonstrated by color flow Doppler interrogation. The aortic root and proximal ascending aorta are not well visualized. Mild mitral annular thickening. Trileaflet aortic valve with slight sclerosos. There is trace tricuspid valve regurgitation. The estimated pulmonary arterial pressure is 46.2 mmHg. There is estimated mild pulmonary hypertension present (range 40-50 mmHg). A right sided pleural effusion is present. BP: / HR: Rhythm: Sinus MEASUREMENTS (Male / Female) Normal Values Technical Quality:Fair 2D ECHO LV Diastolic Diameter PLAX 3.7 cm 4.2 - 5.9 / 3.9 - 5.3 cm LV Systolic Diameter PLAX 2.4 cm IVS Diastolic Thickness 0.9 cm 0.6 - 1.0 / 0.6 - 0.9 cm LVPW Diastolic Thickness 0.9 cm 0.6 - 1.0 / 0.6 - 0.9 cm LV Relative Wall Thickness 0.5 RV Internal Dim ED PLAX 1.7 cm LVOT Diameter 1.8 cm Aortic Root Diameter 2.6 cm LA Systolic Diameter LX 2.3 cm 3.0 - 4.0 / 2.7 - 3.8 cm M-MODE AV Cusp Separation MM 1.5 cm DOPPLER AV Peak Velocity 136.0 cm/s AV Peak Gradient 7.4 mmHg AV Mean Gradient 3.0 mmHg AV Velocity Time Integral 26.5 cm LVOT Peak Velocity 79.7 cm/s LVOT Peak Gradient 2.5 mmHg LVOT Velocity Time Integral 14.2 cm AV Area Cont Eq vti 1.4 cm AV Area Cont Eq pk 1.5 cm Mitral E Point Velocity 77.5 cm/s Mitral A Point Velocity 78.5 cm/s Mitral E to A Ratio 1.0 LV E' Lateral Velocity 6.4 cm/s Mitral E to LV E' Lateral Ratio 12.1 LV E' Septal Velocity 6.0 cm/s Mitral E to LV E' Septal Ratio 12.8 TR Peak Velocity 301.0 cm/s TR Peak Gradient 36.2 mmHg Right Atrial Pressure 10.0 mmHg Pulmonary Artery Systolic Pressu 46.2 mmHg Right Ventricular Systolic Press 46.2 mmHg PV Peak Velocity 87.2 cm/s PV Peak Gradient 3.0 mmHg FINDINGS LEFT VENTRICLE Normal left ventricular size. Wall thickness is normal. The left ventricular systolic function is hyperdynamic with an estimated ejection fraction in the ra nge of 65- 70%. RIGHT VENTRICLE Normal right ventricular size and systolic function. LEFT ATRIUM The left atrial size is normal. RIGHT ATRIUM The right atrial size is normal. ATRIAL SEPTUM No atrial level shunt is demonstrated by color flow Doppler interrogation. AORTA The aortic root and proximal ascending aorta are not well visualized. MITRAL VALVE Mild mitral annular thickening. No mitral valve stenosis or regurgitation. AORTIC VALVE Trileaflet aortic valve with slight sclerosos. No aortic valve stenosis or regurgitation. TRICUSPID VALVE There is trace tricuspid valve regurgitation. The estimated pulmonary arterial pressure is 46.2 mmHg. There is estimated mild pulmonary hypertension present (range 40-50 mmHg). PULMONARY VALVE No pulmonary valve regurgitation or stenosis. VESSELS The inferior vena cava is normal in size. PERICARDIUM A right sided pleural effusion is present. Frederic Gerard MD (Electronically Signed) Final Date:01 October 2017 13:13
[2017-10-01 14:43] LABS: Anti-Nuclear Antibody Screen Neg (Neg)
[2017-10-02] MEDS: Insulin NovoLOG Aspart Correctional Sugar Inj SQ SCH ×6 (00:18→22:11)
[2017-10-02] MEDS: Heparin - SQ 10,000 UNITS/ML Vial SQ SCH ×2 (00:26→12:24)
[2017-10-02] MEDS: Nystatin/Diphenhydramine/Lidocaine Mouthwash (Adult) 120 ML Botttle SWISH-SPIT SCH ×5 (00:26→22:07)
[2017-10-02] MEDS: Sod Chloride 0.9% Inj 1,000 ML IV.CONT SCH ×5 (01:42→22:07)
[2017-10-02 05:46] LABS: INR 2.1 Ratio; Prothrombin Time 21.7 sec (9.8-11.6)
[2017-10-02] MEDS: Aspirin 325 MG Tablet PO SCH (09:47)
[2017-10-02] MEDS: Acetaminophen-HYDROcodone 325/7.5 Liq 15 ML UDC PO PRN ×3 (12:24→22:07)
--- NOTE | 2017-10-02 15:17 | P.PNIM ---
Subjective Interval history: Improvement in cognition. Improvement in vision. Patient has no new complaints. She is receiving radiation therapy and this prohibits her from immediate senior living facility options. Physical Exam Vital signs: Vital Signs 10/01/17 18:08 10/01/17 20:00 10/01/17 23:44 Temperature 97.8 F 98.0 F Pulse Rate 72 70 Respiratory Rate 18 16 Blood Pressure 130/70 113/57 L Pulse Oximetry 97 96 95 10/02/17 04:00 10/02/17 08:00 10/02/17 10:55 Temperature 98.0 F 98 F Pulse Rate 65 80 Respiratory Rate 14 18 Blood Pressure 118/70 171/77 H Pulse Oximetry 95 99 95 10/02/17 12:00 Temperature 98.6 F Pulse Rate 78 Respiratory Rate 18 Blood Pressure 180/78 H Pulse Oximetry 98 Intake & Output 10/01/17 10/02/17 10/02/17 18:59 06:59 18:59 Intake Total 1000 / 1000 1050 / 1050 Balance 1000 / 1000 1050 / 1050 Weight 77.111 kg Intake: IV 1000 / 1000 1000 / 1000 NS Inj 1,000 ML @ 84 mls/hr IV. 1000 / 1000 1000 / 1000 CONT .[id number] [facility] Rx#:[id number] Oral 50 / 50 Other: # Voids 2 2 Date of Last Bowel Movement 09/28/17 Narrative: GENERAL: NAD, A&Ox3 HEAD: Normocephalic. NECK: Supple, trachea midline. No lymphadenopathy. EYES: No scleral icterus. No injection or drainage. CARDIOVASCULAR: Regular rate and rhythm without murmurs, gallops, or rubs. RESPIRATORY: Breath sounds equal bilaterally. No accessory muscle use. GASTROINTESTINAL: Abdomen soft, non-tender, nondistended. MUSCULOSKELETAL: No cyanosis, or edema. SKIN: Warm and dry. NEURO: No focal neurological deficits. Results - Labs CBC & Chem 7: 09/29/17 20:35 10/01/17 11:30 Laboratory Results - last 24 hr 10/01/17 10/01/17 10/02/17 16:57 21:13 02:35 PT INR POC Glucose 92 94 101 10/02/17 10/02/17 04:33 07:42 PT 21.7 H INR 2.1 POC Glucose 96 Assessment and Plan - Assessment (1) Stroke Code(s): I63.9 - Cerebral infarction, unspecified Status: Acute Plan: Continue Coumadin No therapeutic Discontinue heparin tomorrow Continue statin Echocardiogram and Holter pending (2) Hypertension Code(s): I10 - Essential (primary) hypertension Status: Chronic Plan: Continue baseline treatment Follow blood pressures Adjust treatments as needed (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
[2017-10-03] MEDS: Insulin NovoLOG Aspart Correctional Sugar Inj SQ SCH ×5 (03:06→22:51)
[2017-10-03] MEDS: Nystatin/Diphenhydramine/Lidocaine Mouthwash (Adult) 120 ML Botttle SWISH-SPIT SCH ×4 (07:43→22:51)
[2017-10-03] MEDS: Acetaminophen-HYDROcodone 325/7.5 Liq 15 ML UDC PO PRN ×4 (08:04→22:48)
[2017-10-03 08:23] LABS: Prothrombin Time 30.7 sec (9.8-11.6)
--- NOTE | 2017-10-03 12:50 | P.PNIM ---
Subjective Interval history: Improving today proving. She had mild confusion in the morning. Visual changes continued to improve. INR is currently at 3.0 which was on 2 mg dosing. INR dosing is decreased. Continue to monitor INR. Physical Exam Vital signs: Vital Signs 10/02/17 16:00 10/02/17 20:00 10/02/17 21:45 Temperature 98.6 F 97.9 F Pulse Rate 75 82 84 Respiratory Rate 18 19 Blood Pressure 178/74 H 165/74 H Pulse Oximetry 97 94 L 94 L 10/03/17 00:00 10/03/17 00:30 10/03/17 04:00 Temperature 98.1 F Pulse Rate 63 83 64 Respiratory Rate 17 Blood Pressure 155/62 H Pulse Oximetry 97 10/03/17 04:45 10/03/17 08:00 10/03/17 12:35 Temperature 98 F 98.2 F Pulse Rate 80 84 Respiratory Rate 17 18 Blood Pressure 150/65 H 155/68 H Pulse Oximetry 96 96 95 Intake & Output 10/02/17 10/03/17 10/03/17 18:59 06:59 18:59 Intake Total 720 / 720 2375 / 2375 Balance 720 / 720 2375 / 2375 Weight 77.5 kg Intake: IV 0 / 0 1000 / 1000 NS Inj 1,000 ML @ 84 mls/hr IV. 0 / 0 1000 / 1000 CONT .[id number] [facility] Rx#:[id number] Oral 720 / 720 1375 / 1375 Other: # Voids 2 4 Date of Last Bowel Movement 09/28/17 09/28/17 09/28/17 # Bowel Movements 0 Narrative: GENERAL: NAD, A&Ox3 HEAD: Normocephalic. NECK: Supple, trachea midline. No lymphadenopathy. EYES: No scleral icterus. No injection or drainage. CARDIOVASCULAR: Regular rate and rhythm without murmurs, gallops, or rubs. RESPIRATORY: Breath sounds equal bilaterally. No accessory muscle use. GASTROINTESTINAL: Abdomen soft, non-tender, nondistended. MUSCULOSKELETAL: No cyanosis, or edema. SKIN: Warm and dry. NEURO: No focal neurological deficits. Results - Labs CBC & Chem 7: 09/29/17 20:35 10/01/17 11:30 Laboratory Results - last 24 hr 09/30/17 10/02/17 10/02/17 13:35 17:27 21:58 PT INR POC Glucose 106 92 Thiamine 96 10/03/17 10/03/17 10/03/17 02:23 07:10 08:11 PT 30.7 H INR 3.0 POC Glucose 97 97 Thiamine Assessment and Plan - Assessment (1) Stroke Code(s): I63.9 - Cerebral infarction, unspecified Status: Acute Plan: Continue Coumadin at 1 mg daily INR is therapeutic at 3.0 Heparin and aspirin discontinued Continue statin Echocardiogram showed no abnormality Telemetry monitoring shows no evidence of atrial fibrillation Physical therapy evaluation Possible discharge tomorrow (2) Hypertension Code(s): I10 - Essential (primary) hypertension Status: Chronic Plan: Continue baseline treatment Follow blood pressures Adjust treatments as needed (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
--- NOTE | 2017-10-03 14:11 | P.DCO ---
- Physical Therapy Order: Evaluate and treat, Improve ambulation, Strength and gait training - Home Health Nursing Order: Medical education, Nursing assessment with vital signs - Certification I have seen patient Beryl Rodriguez on 10/03/17. My clinical findings support the need for the requested home health care services because: Deconditioned with increased weakness, Limited ability to care for self, High risk of falls I certify that my clinical findings support that this patient is homebound because: Unsteady gait/balance, Unsafe to leave home unassisted, Unable to use public transportation
[2017-10-03] MEDS: Sod Chloride 0.9% Inj 1,000 ML IV.CONT SCH (20:24)
[2017-10-03] MEDS: Docusate Sodium 100 MG Capsule PO SCH (22:49)
[2017-10-04] MEDS: Insulin NovoLOG Aspart Correctional Sugar Inj SQ SCH ×4 (03:47→16:33)
--- NOTE | 2017-10-04 07:42 | P.PNNEU ---
Subjective Subjective Comments: No acute events reported Active Medications: Active Medications Hydrocodone Bitart/Acetaminophen (Hycet 325/7.5 Mg Liq) 15 ml PO Q4H PRN PRN Reason: Acute Pain Last Admin: 10/03/17 22:48 Dose: 15 ml Al Hydroxide/Mg Hydroxide (Milk Of Magnesia Liq) 30 ml PO DAILY PRN PRN Reason: CONSTIPATION Last Admin: 10/03/17 14:50 Dose: 30 ml Amlodipine Besylate (Norvasc) 5 mg PO DAILY [facility] Atorvastatin Calcium (Lipitor) 40 mg PO HS [facility] Last Admin: 10/03/17 22:51 Dose: 40 mg Dextrose (D50w Vial) 50 ml IV.PUSH UNSCH PRN PRN Reason: PER HYPOGLYCEMIA PROTOCOL Docusate Sodium (Colace) 100 mg PO BID [facility] Last Admin: 10/03/17 22:49 Dose: 100 mg Glucagon (Glucagon Inj) 1 mg OTHER PRN PRN PRN Reason: for Hypoglycemia Protocol Hydrochlorothiazide (Microzide) 12.5 mg PO DAILY [facility] Insulin Aspart (Novolog Insulin Suppl Scale Inj) 0 unit SQ ACHS AND 3AM [facility]; Protocol Last Admin: 10/04/17 03:47 Dose: Not Given Metoprolol Succinate (Toprol Xl) 25 mg PO DAILY [facility] Multi-Ingredient Mouthwash/Gargle (Magic Mouthwash Adult Liq) 5 ml SWISH-SPIT ACHS [facility] Last Admin: 10/03/17 22:51 Dose: Not Given Sodium Chloride (Ns Flush) 2 ml IV.FLUSH BID [facility] Last Admin: 10/03/17 22:52 Dose: 2 ml Sodium Chloride (Ns Flush) 2 ml IV.FLUSH PRN PRN PRN Reason: FLUSH AFTER USING IV ACCESS Last Admin: 10/02/17 22:09 Dose: 2 ml Warfarin Sodium (Coumadin) 1 mg PO DAILY@1600 [facility] Last Admin: 10/03/17 17:05 Dose: 1 mg Allergies/Adverse Reactions: Allergies Allergy/AdvReac Type Severity Reaction Status Date / Time No Known Allergies Allergy Unverified 07/29/17 12:09 Physical Exam Vital signs: Vital Signs 10/03/17 08:00 10/03/17 12:00 10/03/17 12:35 Temperature 98.2 F 97.8 F Pulse Rate 84 82 Respiratory Rate 18 18 Blood Pressure 155/68 H 190/86 H Pulse Oximetry 96 98 95 10/03/17 16:00 10/03/17 20:00 10/03/17 20:22 Temperature 98.6 F Pulse Rate 81 71 Respiratory Rate 18 17 18 Blood Pressure 194/77 H Pulse Oximetry 98 96 10/03/17 21:50 10/04/17 00:00 10/04/17 00:40 Temperature 98 F 98 F Pulse Rate 75 71 73 Respiratory Rate 17 17 Blood Pressure 178/80 H 96/60 L Pulse Oximetry 98 96 10/04/17 06:00 Temperature 97.9 F Pulse Rate 66 Respiratory Rate 16 Blood Pressure 125/65 Pulse Oximetry 97 Intake & Output 10/03/17 10/04/17 10/04/17 18:59 06:59 18:59 Intake Total 1720 / 1720 1820 / 1820 Output Total 0 / 0 Balance 1720 / 1720 1820 / 1820 Weight 77 kg Intake: IV 1000 / 1000 200 / 200 NS Inj 1,000 ML @ 84 mls/hr IV. 1000 / 1000 CONT .[id number] [facility] Rx#:[id number] Oral 720 / 720 1620 / 1620 Output: Stool 0 / 0 Other: # Voids 4 4 Date of Last Bowel Movement 10/03/17 10/03/17 # Bowel Movements 1 0 Narrative: awaek alert blind od os restricted laterally 5/5 nl speech Objective Laboratory Results - last 24 hr 10/03/17 10/03/17 10/03/17 07:10 08:11 17:14 PT 30.7 H INR 3.0 POC Glucose 97 93 10/03/17 10/04/17 20:28 04:35 PT INR POC Glucose 97 98 Review/Management - Review/Management Plan: imp bilat cva acute plan is coumadin and dc heparin and asa when inr >1.9 oob ok may need rehab she could go to rehab if they dose her coumadin and check inr daily and there knows she was just started on coumadin o/w keep here MEDICAL TEAM PLEASE DOSE COUMADIN DAILY fu echo and holter 10/04/17 echo and holter neg sr inr 3.0 yest 1 mg coumadin last pm she should get loop recorder then dc will consult cards dc after loop in i dw daughter and pt fall risk
[2017-10-04] MEDS: Nystatin/Diphenhydramine/Lidocaine Mouthwash (Adult) 120 ML Botttle SWISH-SPIT SCH ×3 (07:49→16:33)
[2017-10-04] MEDS: Acetaminophen-HYDROcodone 325/7.5 Liq 15 ML UDC PO PRN ×2 (08:13→18:39)
[2017-10-04] MEDS: Docusate Sodium 100 MG Capsule PO SCH (08:13)
[2017-10-04] MEDS ORDERED: amLODIPine 5 MG Tablet PO SCH (09:00)
--- NOTE | 2017-10-04 10:03 | P.CONCA ---
History of Present Illness Service: Cardiology Reason for Consult: Stroke Primary Care Provider: PROVIDER NON STAFF Chief Complaint: Confusion/vision loss History of Present Illness: 67-year-old female with a past medical history significant for throat cancer currently undergoing radiation therapy presented to the emergency department for the evaluation of altered mental status and visual changes. History of NIDDM and palpitations. Denies any chest pain or SOB. Admits to frequent palpitations. She has been undergoing radiation with Dr. Lopez for throat cancer. Prior history of right eye vision loss about 1 year ago. She was noted to be confused on Wednesday and was brought to ER. 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 Long discussion had with patient and daughter. Will plan to proceed with loop recorder placement. Review of Systems Eyes: Reports blind spots Cardiovascular: Reports irregular heart rhythm Neurologic: Reports confusion, Reports loss of vision, Reports other visual disturbances PMFSH - History History Provided By: Patient - Medical History Medical History: Medical History (Last Reviewed 09/30/17 @ 10:00 by Kimo Weiss) Hypertension Osteoporosis Retina disorder, right Throat cancer - Surgical History Surgical History: Surgical History (Last Reviewed 09/30/17 @ 10:00 by Kimo Weiss) No history of previous surgery - Tobacco History Second Hand Smoke Exposure: No Tobacco Use In Past 30 Days: Yes Smoking Status: Current every day smoker Tobacco Type: Cigarettes - Alcohol History How Often Do You Have a Drink Containing Alcohol: Never - Substance Use History Substance History: No History of Abuse - Travel History Recent Travel in the [place] Within the Last 8 Weeks: No Recent Travel Out of the Country Within the Last 8 Weeks: No - Immunization History Tetanus Immunization: Never Vaccinated Hx Influenza Vaccine This Season: No Medications and Allergies Active Medications: Active Medications Hydrocodone Bitart/Acetaminophen (Hycet 325/7.5 Mg Liq) 15 ml PO Q4H PRN PRN Reason: Acute Pain Last Admin: 10/04/17 08:13 Dose: 15 ml Al Hydroxide/Mg Hydroxide (Milk Of Magnesia Liq) 30 ml PO DAILY PRN PRN Reason: CONSTIPATION Last Admin: 10/03/17 14:50 Dose: 30 ml Amlodipine Besylate (Norvasc) 5 mg PO DAILY [facility] Last Admin: 10/04/17 09:07 Dose: Not Given Atorvastatin Calcium (Lipitor) 40 mg PO HS [facility] Last Admin: 10/03/17 22:51 Dose: 40 mg Dextrose (D50w Vial) 50 ml IV.PUSH UNSCH PRN PRN Reason: PER HYPOGLYCEMIA PROTOCOL Docusate Sodium (Colace) 100 mg PO BID [facility] Last Admin: 10/04/17 08:13 Dose: 100 mg Glucagon (Glucagon Inj) 1 mg OTHER PRN PRN PRN Reason: for Hypoglycemia Protocol Hydrochlorothiazide (Microzide) 12.5 mg PO DAILY [facility] Last Admin: 10/04/17 09:07 Dose: Not Given Insulin Aspart (Novolog Insulin Suppl Scale Inj) 0 unit SQ ACHS AND 3AM [facility]; Protocol Last Admin: 10/04/17 09:06 Dose: Not Given Metoprolol Succinate (Toprol Xl) 25 mg PO DAILY [facility] Last Admin: 10/04/17 08:13 Dose: 25 mg Multi-Ingredient Mouthwash/Gargle (Magic Mouthwash Adult Liq) 5 ml SWISH-SPIT [facility] Last Admin: 10/04/17 07:49 Dose: Not Given Sodium Chloride (Ns Flush) 2 ml IV.FLUSH BID [facility] Last Admin: 10/04/17 09:07 Dose: 2 ml Sodium Chloride (Ns Flush) 2 ml IV.FLUSH PRN PRN PRN Reason: FLUSH AFTER USING IV ACCESS Last Admin: 10/02/17 22:09 Dose: 2 ml Warfarin Sodium (Coumadin) 1 mg PO DAILY@1600 [facility] Last Admin: 10/03/17 17:05 Dose: 1 mg Allergies Allergy/AdvReac Type Severity Reaction Status Date / Time No Known Allergies Allergy Unverified 07/29/17 12:09 Home Medications Medication Instructions Recorded Confirmed Type amlodipine 5 mg PO DAILY 09/30/17 09/30/17 History hydrochlorothiazide 12.5 mg PO DAILY 09/30/17 09/30/17 History hydrocodone-acetaminophen 1 ml PO Q4-6H PRN 09/30/17 09/30/17 History lorazepam 1 mg PO DAILY 09/30/17 09/30/17 History metoprolol succinate 25 mg PO DAILY 09/30/17 09/30/17 History mouthwash compounding base 227 5 ml MUCOUS MEMBRANE ACHS 09/30/17 09/30/17 History Exam Vital signs: Vital Signs 10/03/17 12:00 10/03/17 12:35 10/03/17 16:00 Temperature 97.8 F 98.6 F Pulse Rate 82 81 Respiratory Rate 18 18 Blood Pressure 190/86 H 194/77 H Pulse Oximetry 98 95 98 10/03/17 20:00 10/03/17 20:22 10/03/17 21:50 Temperature 98 F Pulse Rate 71 75 Respiratory Rate 17 18 17 Blood Pressure 178/80 H Pulse Oximetry 96 98 10/04/17 00:00 10/04/17 00:40 10/04/17 06:00 Temperature 98 F 97.9 F Pulse Rate 71 73 66 Respiratory Rate 17 16 Blood Pressure 96/60 L 125/65 Pulse Oximetry 96 97 10/04/17 08:00 Temperature 98.8 F Pulse Rate 69 Respiratory Rate 18 Blood Pressure 164/67 H Pulse Oximetry 97 Intake & Output 10/03/17 10/04/17 10/04/17 18:59 06:59 18:59 Intake Total 1720 / 1720 1820 / 1820 Output Total 0 / 0 Balance 1720 / 1720 1820 / 1820 Weight 77 kg Intake: IV 1000 / 1000 200 / 200 NS Inj 1,000 ML @ 84 mls/hr IV. 1000 / 1000 CONT .[id number] [facility] Rx#:[id number] Oral 720 / 720 1620 / 1620 Output: Stool 0 / 0 Other: # Voids 4 4 Date of Last Bowel Movement 10/03/17 10/03/17 # Bowel Movements 1 0 - Constitutional no acute distress - Routine HEENT Exam Head: Present: normocephalic, atraumatic ENT: Present: mucous membranes moist - Routine Neck Exam Present: supple - Routine Cardiovascular Exam Present: RRR - Routine Abdominal Exam Present: soft - Routine Extremities Exam Comments: no edema. - Routine Skin Exam Present: intact - Routine Neurological Exam Present: alert, oriented X3 Results 09/29/17 20:35 10/01/17 11:30 Intake and Output 10/03/17 10/04/17 10/04/17 22:59 06:59 14:59 Intake Total 1420 / 1420 1120 / 1120 Output Total 0 / 0 Balance 1420 / 1420 1120 / 1120 Intake: IV 200 / 200 Oral 1420 / 1420 920 / 920 Output: Stool 0 / 0 Other: # Voids 1 4 Date of Last Bowel Movement 10/03/17 10/03/17 # Bowel Movements 0 0 Weight 77 kg - EKG Interpretation EKG shows: sinus rhythm Assessment and Plan - Plan 1. CVA MRI of the brain showed acute infarction involving right posterior temporal, parietal and anterior occipital convexities as well as medial left occipital lobe INR is therapeutic this AM. Will plan to proceed with loop recorder placement today. All risks discussed in detail, patient and daughter fully understand the risks and elect to proceed. 2. Throat cancer Patient continues to receive radiation therapy with Dr. Lopez. 3. Hypokalemia Monitor BMP 4. Hypertension Blood pressure has been up and down. Will continue to monitor. The patient was seen and evaluated by Dr. Donis who participated in care, management and decision making. Discussed Condition With: Patients daughter and nurse.
[2017-10-04 11:11] LABS: Baso % (Auto) 0.3 % (0.0-2.0); Eos # (Auto) 0.1 th/mm3 (0.0-0.4); Eos % (Auto) 1.8 % (0.0-4.0); Hematocrit 34.6 % (35.0-46.0); Hemoglobin 11.7 gm/dL (11.6-15.3); Lymph # (Auto) 0.6 th/mm3 (1.0-4.8); Lymph % (Auto) 11.2 % (9.0-44.0); Mean Corpuscular HGB Conc 33.8 % (32.0-36.0); Mean Corpuscular Hemoglobin 32.5 pg (27.0-34.0); Mean Corpuscular Volume 96.3 fL (80.0-100.0); Mean Platelet Volume 8.3 fL (7.0-11.0); Mono # (Auto) 0.5 th/mm3 (0.0-0.9); Mono % (Auto) 9.7 % (0.0-8.0); Platelet Count 233 th/mm3 (150-450); Red Blood Count 3.59 mil/mm3 (4.00-5.30); Red Cell Distribution Width 13.3 % (11.6-17.2); White Blood Count 5.2 th/mm3 (4.0-11.0)
[2017-10-04 11:16] LABS: INR 2.7 Ratio; Prothrombin Time 26.9 sec (9.8-11.6)
[2017-10-04 11:34] LABS: Alanine Aminotransferase 27 U/L (10-53); Albumin 3.6 g/dL (3.4-5.0); Alkaline Phosphatase 59 U/L (45-117); Anion Gap 9 meq/L (5-15); Aspartate Aminotransferase 16 U/L (15-37); Blood Urea Nitrogen 6 mg/dL (7-18); Calcium 9.2 mg/dL (8.5-10.1); Chloride 102 meq/L (98-107); Glomerular Filtration Rate Greater Than 89 mL/min (>89); Glucose,Random 108 mg/dL (74-106); Sodium 141 meq/L (136-145); Total Protein 7.2 g/dL (6.4-8.2)
--- NOTE | 2017-10-04 11:38 | P.DS ---
Date of admission: 09/29/17 22:23 Primary care physician: PROVIDER NON STAFF Brief History from admission: 67-year-old female with a past medical history significant for throat cancer currently undergoing radiation therapy presents to the emergency department for the evaluation of altered mental status and visual changes. The patient is blind in her right eye and her daughter who provides most of her medical history states this is because the right eye "" 6 months ago, secondary to a stroke. She is unable to tell me the exact pathology. The daughter reports that yesterday her brother noticed that his mother was confused and acting strange. She also began to complain of visual changes in her left eye. While at work earlier yesterday the patient called her daughter and said that she could not see at all. She also has been confused and disoriented repeating the same statements and not oriented to time or location. The patient's daughter took her to a retina specialist who stated there was nothing wrong with her eye. She went to her radiation treatment and saw Dr. Lopez who recommended immediate transfer to the emergency department for further evaluation. MRI significant for acute stroke. DS: Diagnosis - Discharge Diagnosis (1) Stroke Status: Acute (2) Hypertension Status: Chronic (3) Throat cancer Status: Chronic DS: Medications - Discharge Medications Prescriptions: hydrocodone-acetaminophen 15 ml PO Q4H PRN #16 ml PRN Reason: Acute Pain DS: Summary Hospital Course: is a 67-year-old female. She was admitted secondary to acute CVA with visual deficit and confusion. All of her CVA symptoms have been improving. She is started on Coumadin. She is now therapeutic on Coumadin and showing stability on 1 mg of Coumadin p.o. daily. INR is currently at 2.7. Patient has been having improvement in her ambulation. She is stable for discharge home with a walker and home health PT. Medically clear and stable for discharge home today. - Time Spent with Patient Total time spent providing and/or coordinating discharge services: - Quality: VTE Deep Vein Thrombosis/Pulmonary Embolism Present on Admission: Yes Exam Vital signs: Vital Signs 10/03/17 12:00 10/03/17 12:35 10/03/17 16:00 Temperature 97.8 F 98.6 F Pulse Rate 82 81 Respiratory Rate 18 18 Blood Pressure 190/86 H 194/77 H Pulse Oximetry 98 95 98 10/03/17 20:00 10/03/17 20:22 10/03/17 21:50 Temperature 98 F Pulse Rate 71 75 Respiratory Rate 17 18 17 Blood Pressure 178/80 H Pulse Oximetry 96 98 10/04/17 00:00 10/04/17 00:40 10/04/17 06:00 Temperature 98 F 97.9 F Pulse Rate 71 73 66 Respiratory Rate 17 16 Blood Pressure 96/60 L 125/65 Pulse Oximetry 96 97 10/04/17 08:00 Temperature 98.8 F Pulse Rate 69 Respiratory Rate 18 Blood Pressure 164/67 H Pulse Oximetry 97 Intake & Output 10/03/17 10/04/17 10/04/17 18:59 06:59 18:59 Intake Total 1720 / 1720 1820 / 1820 Output Total 0 / 0 Balance 1720 / 1720 1820 / 1820 Weight 77 kg Intake: IV 1000 / 1000 200 / 200 NS Inj 1,000 ML @ 84 mls/hr IV. 1000 / 1000 CONT .[id number] [facility] Rx#:[id number] Oral 720 / 720 1620 / 1620 Output: Stool 0 / 0 Other: # Voids 4 4 Date of Last Bowel Movement 10/03/17 10/03/17 10/03/17 # Bowel Movements 1 0 Results Procedures completed during hospitalization: none Labs on day of discharge: Labs from last 24 hours 10/04/17 10/04/17 10/04/17 09:22 09:22 09:22 WBC 5.2 RBC 3.59 L Hgb 11.7 Hct 34.6 L MCV 96.3 MCH 32.5 MCHC 33.8 RDW 13.3 Plt Count 233 MPV 8.3 Neut % (Auto) 77.0 H Lymph % (Auto) 11.2 Cameron % (Auto) 9.7 H Eos % (Auto) 1.8 Baso % (Auto) 0.3 Neut # (Auto) 4.0 Lymph # (Auto) 0.6 L Cameron # (Auto) 0.5 Eos # (Auto) 0.1 Baso # (Auto) 0.0 WBC Differential . Differential Comment Auto diff final PT 26.9 H INR 2.7 Sodium Pending Potassium Pending Chloride Pending Carbon Dioxide Pending Anion Gap Pending BUN Pending Creatinine Pending POC Glucose Random Glucose Pending Calcium Pending Total Bilirubin Pending AST Pending ALT Pending Alkaline Phosphatase Pending Total Protein Pending Albumin Pending 10/04/17 10/04/17 10/03/17 08:19 04:35 20:28 WBC RBC Hgb Hct MCV MCH MCHC RDW Plt Count MPV Neut % (Auto) Lymph % (Auto) Cameron % (Auto) Eos % (Auto) Baso % (Auto) Neut # (Auto) Lymph # (Auto) Cameron # (Auto) Eos # (Auto) Baso # (Auto) WBC Differential Differential Comment PT INR Sodium Potassium Chloride Carbon Dioxide Anion Gap BUN Creatinine POC Glucose 91 98 97 Random Glucose Calcium Total Bilirubin AST ALT Alkaline Phosphatase Total Protein Albumin 10/03/17 17:14 WBC RBC Hgb Hct MCV MCH MCHC RDW Plt Count MPV Neut % (Auto) Lymph % (Auto) Cameron % (Auto) Eos % (Auto) Baso % (Auto) Neut # (Auto) Lymph # (Auto) Cameron # (Auto) Eos # (Auto) Baso # (Auto) WBC Differential Differential Comment PT INR Sodium Potassium Chloride Carbon Dioxide Anion Gap BUN Creatinine POC Glucose 93 Random Glucose Calcium Total Bilirubin AST ALT Alkaline Phosphatase Total Protein Albumin - Impressions ITS Impressions Head CT 09/29/17 20:05 CONCLUSION: 1. Suspected very recent areas of infarction involving the posterior right middle cerebral artery territory involving portions of the right temporal parietal and occipital lobes. There also appears to be smaller recent infarct seen in the posterior medial left occipital lobe. 2. Suspected underlying small vessel ischemic change in the white matter. Head MRI 09/29/17 22:13 CONCLUSION: 1. MRI examination confirms CT findings. There is acute infarction involving the right posterior temporal, parietal mid convexities, and anterior occipital mid convexities as well as the medial left occipital lobe. 2. No acute hemorrhage, herniation or mass. 3. Moderate periventricular ischemic white matter demyelination. Head MRA 09/29/17 22:13 CONCLUSION: 1. Occluded origin of the right MCA temporal branch with opacification of the more distal M2 branches likely via collaterals. 2. Occluded left posterior cerebral artery. 3. Occluded distal left vertebral artery. Carotid Doppler Study 09/30/17 00:00 CONCLUSION: 1. Plaque seen bilaterally being more prominent on the right without definite significant stenosis identified. 2. 1.5 cm right thyroid nodule. Neck MRA 09/30/17 00:00 CONCLUSION: 1. Moderate stenosis at the proximal left subclavian artery. The lumen is narrowed by at least 50%. 2. Mild areas of stenosis at the carotid bulb regions bilaterally. 3. 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 The right vertebral artery appears large. It is responsible for filling the basilar artery. Percent stenosis is calculated using the diameter of the stenotic region over the diameter of the normal distal internal carotid artery Discharge Plan - Discharge Disposition Patient Disposition: 03 Discharge to SNF - Discharge Condition Condition: Stable - Discharge Details Anticipated Discharge Date: 10/02/17 - Physicians Team Primary Care Provider: NON STAFF,PROVIDER Attending Provider: Smith Kaiser Other Providers: ; Paolo Gonzalez MD ; Amaury oLpez MD ; Malvin Warren MD ; Neftali Limon MD
[2017-10-04 11:40] LABS: Potassium 2.9 meq/L (3.5-5.1)
[2017-10-04] MEDS ORDERED: Potassium Chloride 25 MEQ Effervescent Tablet PO ONE (11:42)
--- NOTE | 2017-10-04 11:46 | P.PNIM ---
Subjective Interval history: Patient clear for discharge earlier today but labs are reported late and show hypokalemia. Discharge is subsequently held. Replacements are being given and repeat follow-up level is ordered. Potential discharge tonight if hypokalemia can be improved. Otherwise patient is a potential discharge for tomorrow. Physical Exam Vital signs: Vital Signs 10/03/17 12:00 10/03/17 12:35 10/03/17 16:00 Temperature 97.8 F 98.6 F Pulse Rate 82 81 Respiratory Rate 18 18 Blood Pressure 190/86 H 194/77 H Pulse Oximetry 98 95 98 10/03/17 20:00 10/03/17 20:22 10/03/17 21:50 Temperature 98 F Pulse Rate 71 75 Respiratory Rate 17 18 17 Blood Pressure 178/80 H Pulse Oximetry 96 98 10/04/17 00:00 10/04/17 00:40 10/04/17 06:00 Temperature 98 F 97.9 F Pulse Rate 71 73 66 Respiratory Rate 17 16 Blood Pressure 96/60 L 125/65 Pulse Oximetry 96 97 10/04/17 08:00 Temperature 98.8 F Pulse Rate 69 Respiratory Rate 18 Blood Pressure 164/67 H Pulse Oximetry 97 Intake & Output 10/03/17 10/04/17 10/04/17 18:59 06:59 18:59 Intake Total 1720 / 1720 1820 / 1820 Output Total 0 / 0 Balance 1720 / 1720 1820 / 1820 Weight 77 kg Intake: IV 1000 / 1000 200 / 200 NS Inj 1,000 ML @ 84 mls/hr IV. 1000 / 1000 CONT .[id number] [facility] Rx#:[id number] Oral 720 / 720 1620 / 1620 Output: Stool 0 / 0 Other: # Voids 4 4 Date of Last Bowel Movement 10/03/17 10/03/17 10/03/17 # Bowel Movements 1 0 Narrative: awaek alert blind od os restricted laterally 5/5 nl speech Results - Labs CBC & Chem 7: 10/04/17 09:22 10/04/17 09:22 Laboratory Results - last 24 hr 10/03/17 10/03/17 10/04/17 17:14 20:28 04:35 WBC RBC Hgb Hct MCV MCH MCHC RDW Plt Count MPV Neut % (Auto) Lymph % (Auto) [place] % (Auto) Eos % (Auto) Baso % (Auto) Neut # (Auto) Lymph # (Auto) [place] # (Auto) Eos # (Auto) Baso # (Auto) WBC Differential Differential Comment PT INR Sodium Potassium Chloride Carbon Dioxide Anion Gap BUN Creatinine Estimated GFR POC Glucose 93 97 98 Random Glucose Calcium Total Bilirubin AST ALT Alkaline Phosphatase Total Protein Albumin 10/04/17 10/04/17 10/04/17 08:19 09:22 09:22 WBC 5.2 RBC 3.59 L Hgb 11.7 Hct 34.6 L MCV 96.3 MCH 32.5 MCHC 33.8 RDW 13.3 Plt Count 233 MPV 8.3 Neut % (Auto) 77.0 H Lymph % (Auto) 11.2 [place] % (Auto) 9.7 H Eos % (Auto) 1.8 Baso % (Auto) 0.3 Neut # (Auto) 4.0 Lymph # (Auto) 0.6 L [place] # (Auto) 0.5 Eos # (Auto) 0.1 Baso # (Auto) 0.0 WBC Differential . Differential Comment Auto diff final PT INR Sodium 141 Potassium 2.9 L* Chloride 102 Carbon Dioxide 30.0 Anion Gap 9 BUN 6 L Creatinine 0.45 L Estimated GFR Greater than 89 POC Glucose 91 Random Glucose 108 H Calcium 9.2 Total Bilirubin 0.4 AST 16 ALT 27 Alkaline Phosphatase 59 Total Protein 7.2 Albumin 3.6 10/04/17 09:22 WBC RBC Hgb Hct MCV MCH MCHC RDW Plt Count MPV Neut % (Auto) Lymph % (Auto) [place] % (Auto) Eos % (Auto) Baso % (Auto) Neut # (Auto) Lymph # (Auto) [place] # (Auto) Eos # (Auto) Baso # (Auto) WBC Differential Differential Comment PT 26.9 H INR 2.7 Sodium Potassium Chloride Carbon Dioxide Anion Gap BUN Creatinine Estimated GFR POC Glucose Random Glucose Calcium Total Bilirubin AST ALT Alkaline Phosphatase Total Protein Albumin - Procedures none Assessment and Plan - Assessment (1) Stroke Code(s): I63.9 - Cerebral infarction, unspecified Status: Acute Plan: Continue Coumadin at 1 mg daily INR is therapeutic at 2.7 Heparin and aspirin discontinued Continue statin Echocardiogram showed no abnormality Telemetry monitoring shows no evidence of atrial fibrillation Physical therapy evaluation Possible discharge today for electrolyte balance can be achieved (2) Hypertension Code(s): I10 - Essential (primary) hypertension Status: Chronic Plan: Continue baseline treatment Follow blood pressures Adjust treatments as needed (3) Throat cancer Code(s): 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 Replacements provided. Discharge pending electrolyte balance. (1) Stroke Qualifiers: CVA mechanism: occlusion Precerebral and cerebral artery: middle cerebral artery Laterality of affected vessel: right Qualified Code(s): I63.511 - Cerebral infarction due to unspecified occlusion or stenosis of right middle cerebral artery (2) Hypertension Qualifiers: Hypertension type: essential hypertension Qualified Code(s): I10 - Essential (primary) hypertension
--- NOTE | 2017-10-04 12:26 | HM ---
Date Performed: 10/01/2017 Time Performed: 16:05:00 HOOKUP DATE: 10/01/17 04:05:00 PM Fri ANALYSIS START TIME: 10/01/2017 4:10:00 PM ANALYSIS END TIME: 10/02/2017 3:47:16 PM PATIENT AGE: 67 PATIENT HEIGHT: 71 PATIENT WEIGHT: 170 DRUG LIST: SUBACUTE STROKE PATIENT DIAGNOSIS: ROOM 1503 TEST NARRATIVE: The patient's average heart rate was 77 BPM. Heart rates greater than 120 B PM were noted < 1% of the time. No episodes of bradycardia were noted. No pauses exceeding 2.0 s econds were noted. 6 ventricular ectopics, which represented < 1% of the total beat count, were n oted. The highest ventricular ectopic frequency occurred from 09:00 AM to 10:00 AM Sat. During this time 2 VE(s) occurred. Ventricular ectopics were observed as 4 isolated beat(s) and as 1 couplet(s) . No runs were noted. 44 supraventricular ectopics, which represented < 1% of the total beat cou nt, were noted. The highest supraventricular ectopic frequency occurred from 04:00 AM to 05:00 AM Sa t. During this time 9 SVE(s) occurred. Multiple episodes of ST depression (defined as -1.0 mm or more) were noted in channel 1. The maximum depression of -3.0 mm occurred at 07:52:55 PM Fri. Mul tiple episodes of ST depression (defined as -1.0 mm or more) were noted in channel 2. The maximum d epression of -2.7 mm occurred at 07:51:23 PM Fri. Multiple episodes of ST depression (defined as -1. 0 mm or more) were noted in channel 3. The maximum depression of -2.6 mm occurred at 07:53:39 PM Fr i. NO DIARY ENTRIES WERE RECORDED BY PATIENT TEST INTERPRETATION: Sinus rhythm Multiple PACs No pause No ventricular tachycardia No supraventricular tachycardia observed There is no entry in the diary Signed by : Susan Richter
[2017-10-04 12:38] VITALS: TEMP 98.3; O2SAT 100
--- NOTE | 2017-10-04 14:08 | P.DCO ---
- Physical Therapy Order: Evaluate and treat, Improve ambulation, Strength and gait training - Certification I have seen patient Beryl Rodriguez on 10/04/17. My clinical findings support the need for the requested home health care services because: Limited mobility due to disease progression, Limited ability to care for self, High risk of falls I certify that my clinical findings support that this patient is homebound because: Unsteady gait/balance, Unsafe to leave home unassisted, Unable to use public transportation
[2017-10-04] MEDS ORDERED: Mupirocin 2% Nasal Oint Topical Syringe EACH NARE SCH (14:15)
[2017-10-04] MEDS ORDERED: Chlorhexidine Gluconate 2% 1 Pack (2 Cloths) TOPICAL SCH (14:15)
--- NOTE | 2017-10-04 14:41 | MP ---
cc: Rosalio Donis MD, David J MD DATE OF OPERATION: 10/04/2017 PROCEDURE PERFORMED: Loop recorder placement. INDICATIONS FOR PROCEDURE: Rule out atrial fibrillation, stroke. CONSENT: Full informed consent was obtained prior to the procedure. Risks of , bleeding, perforation, infection, foreseen and unforeseen complications were reviewed. The patient agreed to proceed. DESCRIPTION OF PROCEDURE: The patient was draped and prepped in manner. The patient had a local anesthetic given at the fourth intercostal space. The patient is very thin, so it was difficult finding a suitable spot to put the Reveal loop recorder. Following lidocaine, an incision was made with the [employer] incision tool. A Reveal device was tunneled under the skin. Excellent parameters were noted with a 1.72 millivolt R-wave sensing. The pocket was then closed with Steri-Strips and the patient returned to her room in stable condition. CONCLUSION: Successful placement of Reveal device. MD STARLA Larson/CHAPITO , 02:17 PM , 02:40 PM
[2017-10-04] MEDS ORDERED: ceFAZolin 2 GM Premix Inj 2 GM/50 ML PIGGYBACK IV.SIG SCH (15:00)
[2017-10-04 16:53] VITALS: BP 167/67; PULSE 65; RESP 18
== END 2017-10-04 20:10 | disposition home health service (06) ==
LOC: NEPE 17:19 → NEDA 22:23 → NEDH 09-30 03:04 → N05 09-30 16:41
PROVIDERS: ADMIT Hospitalist; ATTEND Hospitalist
DX: C10.0 Malignant neoplasm of vallecula; I63.511 Cerebral infarction due to unspecified occlusion or stenosis of right middle cerebral artery; C10.9 Malignant neoplasm of oropharynx, unspecified; Z86.73 Personal history of transient ischemic attack (TIA), and cerebral infarction without residual deficits; C14.0 Malignant neoplasm of pharynx, unspecified; I63.532 Cerebral infarction due to unspecified occlusion or stenosis of left posterior cerebral artery; M81.0 Age-related osteoporosis without current pathological fracture; E87.6 Hypokalemia; I10 Essential (primary) hypertension; H34.11 Central retinal artery occlusion, right eye; F17.210 Nicotine dependence, cigarettes, uncomplicated; E04.1 Nontoxic single thyroid nodule; Z79.899 Other long term (current) drug therapy; H54.61 Unqualified visual loss, right eye, normal vision left eye

== ENCOUNTER 2018-02-03 07:39 | Inpatient (IN) ==
[2018-02-03] MEDS ORDERED: Acetaminophen 325 MG Tablet PO PRN (09:30)
[2018-02-03] MEDS ORDERED: Acetaminophen-HYDROcodone 325/7.5 Liq 15 ML UDC PO SCH (10:15)
--- NOTE | 2018-02-03 10:23 | P.HPIM ---
History of Present Illness Primary Care Physician: UNKNOWN Chief Complaint: Difficulty swallowing History of Present Illness: The patient is a 67-year-old female with past medical history of squamous cell carcinoma of the throat and CVA who is presenting to the hospital with throat pain and failure to thrive. The patient's daughter was at the bedside and assisted with the history. The patient was referred to the hospital as a direct admission by her oncologist, Dr. Sands. The patient says that she has been struggling to eat. She says that food goes down quite easily but any liquid gives her trouble. She says she has received 7 weeks of radiation therapy. She says her weight was stable while she was on radiation but she has been losing weight after radiation. She developed necrosis in her throat from radiation treatments and has significant 10 out of 10 swallowing pain. The patient says she went from 67 pounds to 62 pounds. She says she was not a candidate for chemotherapy because of how we can find she is. The patient has been taking hydrocodone liquid every 4 hours at home and has been taking MS Contin for long-term pain control. She was started on immunotherapy yesterday. She is aware that she is here in the hospital to have a feeding tube placed and a port placed. The patient's family is interested in possible home hospice services at the time of discharge. Discussed with nursing. Inpatient Certification: I certify that the inpatient services were ordered in accordance with Medicare regulations governing the order. This includes certification that hospital inpatient services are reasonable and necessary and in the case of services not specified as inpatient-only under 42 CFR 419.22(n), that they are appropriately provided as inpatient services in accordance to with the 2-midnight benchmark under 43 CFR 412.3(e) Estimated Total Length of Stay (Days): 3 Plans for Post Hospital Care: Not yet determined Review of Systems All other systems reviewed negative except as stated in HPI PMFSH - History History Provided By: Patient, Family Member - Medical History Medical History: Medical History (Last Updated 02/03/18 @ 10:24 by Kimo Buitrago DO) CVA (cerebral vascular accident) Hyperlipidemia Anemia Hypertension Osteoporosis Retina disorder, right Throat cancer - Surgical History Surgical History: Surgical History (Last Reviewed 02/03/18 @ 10:24 by Kimo Buitrago DO) Hx of biopsy - Family History Family History: Family History (Last Updated 02/03/18 @ 10:24 by Kimo Buitrago DO) Other Diabetes - Social History I have reviewed the patient's Social History: Yes - Tobacco History Second Hand Smoke Exposure: No Tobacco Use In Past 30 Days: No Smoking Status: Former smoker (Quit in September 2017) Tobacco Type: Cigarettes - Alcohol History How Often Do You Have a Drink Containing Alcohol: Never (Quit in September 2017) - Substance Use History Substance History: No History of Abuse Medications and Allergies Active Medications: Active Medications Acetaminophen (Tylenol) 650 mg PO Q4H PRN PRN Reason: Temp > 100.4, pain 1-2 Hydrocodone Bitart/Acetaminophen (Hycet 325/7.5 Mg Liq) 15 ml PO Q4H [facility] Heparin Sodium (Porcine) (Heparin Inj) 5,000 units SQ Q8HR [facility] Hydromorphone HCl (Dilaudid Pf Inj) 1 mg IV.PUSH Q4H PRN PRN Reason: BREAKTHROUGH PAIN Cefazolin Sodium 1,000 mg/ (Sodium Chloride) 100 mls @ 100 mls/hr IV.SIG ONCE ONE Stop: 02/03/18 11:01 Methadone HCl (Dolophine) 2.5 mg PO DAILY [facility] Multi-Ingredient Mouthwash/Gargle (Magic Mouthwash Adult Liq) 10 ml SWISH-SWAL QID [facility] Ondansetron HCl (Zofran Inj) 4 mg IV.PUSH Q6H PRN PRN Reason: NAUSEA OR VOMITING Senna/Docusate Sodium (Casi-Colace) 1 tab PO BID [facility] Allergies Allergy/AdvReac Type Severity Reaction Status Date / Time No Known Allergies Allergy Verified 01/18/18 08:05 Home Medications Medication Instructions Recorded Confirmed Type amlodipine 5 mg PO BID 09/30/17 02/03/18 History mouthwash compounding base 227 5 ml MUCOUS MEMBRANE ACHS 09/30/17 01/18/18 History warfarin [Coumadin] 2 mg PO DAILY@1600 01/18/18 02/03/18 History morphine [MS Contin] 15 mg PO Q12H 02/03/18 02/03/18 History Exam Narrative: General: NAD, cachectic. HEENT: Tenderness to palpation on left side of jaw and anterior neck. Oral thrush noted. Lungs: CTAB. Cardiac: RRR. No M/R/G. GI: Thins abdomen. Soft. Nontender. Extremities: No edema. Neuro: Awake and alert. Moves upper and lower extremities. Psych: Mood and affect appropriate. Caprini VTE Risk Assessment Caprini VTE Risk Assessment: Moderate/High Risk (score >= 2) Caprini Risk Assessment Model: Point Value = 1 Point Value = 2 Point Value = 3 Point Value = 5 Age 41-60 Minor surgery BMI > 25 kg/m2 Swollen legs Varicose veins or History of unexplained or recurrent spontaneous Oral contraceptives or hormone replacement Sepsis (< 1 month) Serious lung disease, including pneumonia (< 1 month) Abnormal pulmonary function Acute myocardial infarction Congestive heart failure (< 1 month) History of inflammatory bowel disease Medical patient at bed rest Age 61-74 Arthroscopic surgery Major open surgery (> 45 min) Laparoscopic surgery (> 45 min) Malignancy Confined to bed (> 72 hours) Immobilizing plaster cast Central venous access Age >= 75 History of VTE Family history of VTE Factor V Leiden Prothrombin [id number] Lupus anticoagulant Anticardiolipin antibodies Elevated serum homocysteine Heparin-induced thrombocytopenia Other congenital or acquired thrombophilia Stroke (< 1 month) Elective arthroplasty Hip, pelvis, or leg fracture Acute spinal cord injury (< 1 month) Prophylaxis Regimen: Total Risk Factor Score Risk Level Prophylaxis Regimen 0-1 Low Early ambulation 2 Moderate Order ONE of the following: *Sequential Compression Device (SCD) *Heparin 5000 units SQ BID 3-4 Higher Order ONE of the following medications: *Heparin 5000 units SQ TID *Enoxaparin/Lovenox 40 mg SQ daily (WT < 150 kg, CrCl > 30 mL/min) *Enoxaparin/Lovenox 30 mg SQ daily (WT < 150 kg, CrCl > 10-29 mL/min) *Enoxaparin/Lovenox 30 mg SQ BID (WT < 150 kg, CrCl > 30 mL/min) AND/OR *Sequential Compression Device (SCD) 5 or more Highest Order ONE of the following medications: *Heparin 5000 units SQ TID (Preferred with Epidurals) *Enoxaparin/Lovenox 40 mg SQ daily (WT < 150 kg, CrCl > 30 mL/min) *Enoxaparin/Lovenox 30 mg SQ daily (WT < 150 kg, CrCl > 10-29 mL/min) *Enoxaparin/Lovenox 30 mg SQ BID (WT < 150 kg, CrCl > 30 mL/min) AND *Sequential Compression Device (SCD) Assessment and Plan - Plan Failure to thrive The pt has squamous cell carcinoma of the throat. She has significant dysphagia. She was referred to the hospital by her oncologist. She was started on immunotherapy on 02/02. -GI consult placed for PEG tube evaluation. -IR consult placed for port placement. -speech therapy eval, modified barium swallow. -D5 1/2 NS. Keep NPO at this time. -pain control with liquid hydrocodone, IV Dilaudid for breakthrough and low dose methadone. -Magic mouthwash. -palliative care consult requested. -oncology consult as needed. CVA Has vision loss and memory problems. On Coumadin. -hold Coumadin and follow INR. -PT eval. PPx: Heparin H&P: Quality - VTE Deep Vein Thrombosis/Pulmonary Embolism Present on Admission: No
[2018-02-03] MEDS ORDERED: Methadone 10 MG Tablet PO SCH (10:30)
[2018-02-03] MEDS: Nystatin/Diphenhydramine/Lidocaine Mouthwash (Adult) 120 ML Botttle SWISH-SWAL SCH ×4 (10:45→21:04)
[2018-02-03] MEDS ORDERED: ceFAZolin 1 GM Premix Inj 1 GM/50 ML FROZ.PIGGY IV.SIG ONE (11:00)
[2018-02-03] MEDS: HYDROmorphone PF Inj 2 MG/ML Vial IV.PUSH PRN (11:14)
[2018-02-03 11:34] LABS: Baso % (Auto) 0.1 % (0.0-2.0); Eos # (Auto) 0.2 th/mm3 (0.0-0.4); Eos % (Auto) 1.3 % (0.0-4.0); Hematocrit 38.4 % (35.0-46.0); Hemoglobin 12.7 gm/dL (11.6-15.3); Lymph # (Auto) 0.6 th/mm3 (1.0-4.8); Lymph % (Auto) 5.2 % (9.0-44.0); Mean Corpuscular HGB Conc 33.2 % (32.0-36.0); Mean Corpuscular Hemoglobin 33.2 pg (27.0-34.0); Mean Corpuscular Volume 100.1 fL (80.0-100.0); Mean Platelet Volume 7.3 fL (7.0-11.0); Mono % (Auto) 8.3 % (0.0-8.0); Neut % (Auto) 85.1 % (16.0-70.0); Platelet Count 314 th/mm3 (150-450); Red Blood Count 3.84 mil/mm3 (4.00-5.30); Red Cell Distribution Width 13.1 % (11.6-17.2); White Blood Count 11.7 th/mm3 (4.0-11.0)
[2018-02-03 11:43] LABS: INR 1.1 Ratio; Prothrombin Time 11.4 sec (9.8-11.6)
[2018-02-03 12:07] LABS: Alanine Aminotransferase 107 U/L (10-53); Albumin 3.6 g/dL (3.4-5.0); Anion Gap 8 meq/L (5-15); Aspartate Aminotransferase 24 U/L (15-37); Blood Urea Nitrogen 18 mg/dL (7-18); Calcium 9.3 mg/dL (8.5-10.1); Carbon Dioxide 33.6 meq/L (21.0-32.0); Chloride 98 meq/L (98-107); Glomerular Filtration Rate Greater Than 89 mL/min (>89); Glucose,Random 86 mg/dL (74-106); Potassium 3.3 meq/L (3.5-5.1); Sodium 140 meq/L (136-145)
[2018-02-03 12:09] LABS: Alkaline Phosphatase 94 U/L (45-117); Total Protein 7.9 g/dL (6.4-8.2)
--- NOTE | 2018-02-03 12:25 | P.CONGI ---
History of Present Illness Consult date: 02/03/18 Consult reason: PEG tube placement Chief complaint: Dysphagia, Aspiration, Recurrent Head and Neck CA, History of Present Illness: This patient is a 67-year-old female with a past medical history significant for squamous cell carcinoma of the throat, CVA, anemia, hypertension and osteoporosis. This patient was admitted to [facility] with report of dysphagia and odynophagia post radiation treatment. Our service has been consulted to evaluate patient for PEG tube placement. Upon consultation, patient's daughter assisted with history and states that patient was diagnosed in July 2017 with throat cancer. Patient underwent 7 weeks of radiation therapy in August 2017. After 3-4 weeks of radiation therapy patient began to experience difficulty swallowing. Patient is now undergoing immunotherapy first treatment 02/02/2018. Patient reports aching sharp burning type pain on left side of face neck and throat. She states sometimes this pain radiates to her left ear. She rates pain at 10/10. Patient reports difficulty swallowing solid pieces of food as well as hard pieces of food. She denies any coughing or choking. Patient's daughter reports an episode last week where patient ingested medication and a few minutes later the daughter noted a small amount of the medication on a tissue after patient wiped her nasal drainage. Patient and daughter do endorse that patient has had change in voice-hoarseness with nasal congestion intermittently. Daughter states that patient has lost 5 pounds in the last few months. Post- radiation patient states she developed weight loss and was told by radiation oncologist of necrosis present in her throat from radiation therapy. Patient denies heartburn or symptoms of acid reflux, she denies any hematemesis. Patient currently on warfarin 2 mg p.o. daily post CVA. Last dose taken 02/01/2018. Patient endorses that she drinks 2 glasses of wine nightly with dinner. She states that she stopped smoking in September 2017 however she smokes tobacco-1 pack/day for the last 40 years. Patient denies any diarrhea or constipation states she moves her bowels every 2- 3 days soft and brown with no noted bleeding. Patient unsure as to date of last colonoscopy. <Bridget Multani - Last Filed: 02/03/18 12:06> Review of Systems All other systems reviewed negative except as stated in HPI <Bridget Multani - Last Filed: 02/03/18 12:06> PMFSH - History History Provided By: Patient, Family Member - Medical History Medical History: Medical History (Last Reviewed 02/03/18 @ 11:54 by Xochitl Estrada) CVA (cerebral vascular accident) Hyperlipidemia Anemia Hypertension Osteoporosis Retina disorder, right Throat cancer - Surgical History Surgical History: Surgical History (Last Reviewed 02/03/18 @ 11:54 by Xochitl Estrada) Hx of biopsy - Family History Family History: Family History (Last Updated 02/03/18 @ 10:24 by Kimo Buitrago DO) Other Diabetes - Tobacco History Second Hand Smoke Exposure: No Tobacco Use In Past 30 Days: No Smoking Status: Former smoker (Quit in September 2017) Tobacco Type: Cigarettes - Alcohol History How Often Do You Have a Drink Containing Alcohol: Never (Quit in September 2017) - Substance Use History Substance History: No History of Abuse <Bridget Multani - Last Filed: 02/03/18 12:06> - Medical History Medical History: Medical History (Last Reviewed 02/03/18 @ 11:54 by Xochitl Estrada) CVA (cerebral vascular accident) Hyperlipidemia Anemia Hypertension Osteoporosis Retina disorder, right Throat cancer - Surgical History Surgical History: Surgical History (Last Reviewed 02/03/18 @ 11:54 by Xochitl Estrada) Hx of biopsy - Family History Family History: Family History (Last Updated 02/03/18 @ 10:24 by Kimo Buitrago DO) Other Diabetes - Substance Use Type Alcohol Status: Active Route Used: By Mouth <Sly Cisse - Last Filed: 02/03/18 19:50> Medications and Allergies Active Medications: Active Medications Acetaminophen (Tylenol) 650 mg PO Q4H PRN PRN Reason: Temp > 100.4, pain 1-2 Hydrocodone Bitart/Acetaminophen (Hycet 325/7.5 Mg Liq) 15 ml PO Q4HR [facility] Heparin Sodium (Porcine) (Heparin Inj) 5,000 units SQ Q8HR [facility] Hydromorphone HCl (Dilaudid Pf Inj) 1 mg IV.PUSH Q4H PRN PRN Reason: BREAKTHROUGH PAIN Last Admin: 02/03/18 11:14 Dose: 1 mg Dextrose/Sodium Chloride (D5w/1/2 Ns Inj) 1,000 mls @ 100 mls/hr IV.CONT .Q10H [facility]NA[facility] Methadone HCl (Dolophine) 2.5 mg PO DAILY [facility] Last Admin: 02/03/18 11:14 Dose: 2.5 mg Miscellaneous (Pill Splitter) 1 each OTHER UNSCH PRN PRN Reason: SEE LABEL COMMENTS Multi-Ingredient Mouthwash/Gargle (Magic Mouthwash Adult Liq) 10 ml SWISH-SWAL QID [facility] Ondansetron HCl (Zofran Inj) 4 mg IV.PUSH Q6H PRN PRN Reason: NAUSEA OR VOMITING Senna/Docusate Sodium (Casi-Colace) 1 tab PO BID [facility] <Multani,Bridget - Last Filed: 02/03/18 12:06> Active Medications: Active Medications Acetaminophen (Tylenol) 650 mg PO Q4H PRN PRN Reason: Temp > 100.4, pain 1-2 Heparin Sodium (Porcine) (Heparin Inj) 5,000 units SQ Q8HR [facility] Hydromorphone HCl (Dilaudid Pf Inj) 1 mg IV.PUSH Q4H PRN PRN Reason: BREAKTHROUGH PAIN Last Admin: 02/03/18 11:14 Dose: 1 mg Dextrose/Sodium Chloride (D5w/1/2 Ns Inj) 1,000 mls @ 100 mls/hr IV.CONT .Q10H [facility] Last Admin: 02/03/18 12:32 Dose: 100 mls/hr Methadone HCl (Dolophine) 5 mg PO BID [facility] Miscellaneous (Pill Splitter) 1 each OTHER UNSCH PRN PRN Reason: SEE LABEL COMMENTS Miscellaneous (Pill Splitter) 1 each OTHER UNSCH PRN PRN Reason: SEE LABEL Morphine Sulfate (Roxanol Liq) 10 mg PO Q4H PRN PRN Reason: pain 3-5 Morphine Sulfate (Roxanol Liq) 15 mg PO Q4H PRN PRN Reason: Pain 6-10 Last Admin: 02/03/18 17:30 Dose: 15 mg Multi-Ingredient Mouthwash/Gargle (Magic Mouthwash Adult Liq) 10 ml SWISH-SWAL QID [facility] Last Admin: 02/03/18 17:32 Dose: 10 ml Ondansetron HCl (Zofran Inj) 4 mg IV.PUSH Q6H PRN PRN Reason: NAUSEA OR VOMITING Senna/Docusate Sodium (Casi-Colace) 1 tab PO BID [facility] <Sly Cisse - Last Filed: 02/03/18 19:50> Allergies Allergy/AdvReac Type Severity Reaction Status Date / Time No Known Allergies Allergy Verified 01/18/18 08:05 Home Medications Medication Instructions Recorded Confirmed Type amlodipine 5 mg PO BID 09/30/17 02/03/18 History mouthwash compounding base 227 5 ml MUCOUS MEMBRANE ACHS 09/30/17 01/18/18 History warfarin [Coumadin] 2 mg PO DAILY@1600 01/18/18 02/03/18 History morphine [MS Contin] 15 mg PO Q12H 02/03/18 02/03/18 History Exam - Constitutional no acute distress - Routine HEENT Exam Head: Present: normocephalic ENT: Present: mucous membranes moist - Routine Chest/Breast/Axilla Exam Chest wall: Absent: tenderness - Routine Respiratory Exam Present: CTA bilaterally. Absent: accessory muscle use - Routine Cardiovascular Exam Present: S1, S2 - Routine Abdominal Exam Present: soft, normoactive bowel sounds. Absent: tenderness, distended, guarding, firm - Routine Extremities Exam Present: pulses intact. Absent: edema - Routine Skin Exam Present: dry, warm - Routine Neurological Exam Present: alert, oriented X3 <Multani,Bridget - Last Filed: 02/03/18 12:06> Vital signs: Vital Signs 02/03/18 09:03 02/03/18 12:00 02/03/18 15:25 Temperature 98.3 F 98.3 F 98.0 F Pulse Rate 74 85 Respiratory Rate 16 18 Blood Pressure 142/70 H 142/67 H 115/50 L Pulse Oximetry 100 89 L 02/03/18 15:40 02/03/18 16:10 02/03/18 16:40 Temperature Pulse Rate 89 88 88 Respiratory Rate 18 18 18 Blood Pressure 110/47 L 110/47 L 122/53 L Pulse Oximetry 95 97 98 <Sly Cisse - Last Filed: 02/03/18 19:50> Results - Labs CBC & Chem 7: 02/03/18 11:15 02/03/18 11:15 Labs: Laboratory Results - last 24 hr 02/03/18 02/03/18 11:15 11:15 WBC 11.7 H RBC 3.84 L Hgb 12.7 Hct 38.4 MCV 100.1 H MCH 33.2 MCHC 33.2 RDW 13.1 Plt Count 314 MPV 7.3 Neut % (Auto) 85.1 H Lymph % (Auto) 5.2 L [place] % (Auto) 8.3 H Eos % (Auto) 1.3 Baso % (Auto) 0.1 Neut # (Auto) 10.0 H Lymph # (Auto) 0.6 L [place] # (Auto) 1.0 H Eos # (Auto) 0.2 Baso # (Auto) 0.0 WBC Differential . Differential Comment Auto diff final PT 11.4 D INR 1.1 <Bridget Multani - Last Filed: 02/03/18 12:06> - Labs CBC & Chem 7: 02/03/18 11:15 02/03/18 11:15 Labs: Laboratory Results - last 24 hr 02/03/18 02/03/18 02/03/18 11:15 11:15 11:15 WBC 11.7 H RBC 3.84 L Hgb 12.7 Hct 38.4 MCV 100.1 H MCH 33.2 MCHC 33.2 RDW 13.1 Plt Count 314 MPV 7.3 Neut % (Auto) 85.1 H Lymph % (Auto) 5.2 L [place] % (Auto) 8.3 H Eos % (Auto) 1.3 Baso % (Auto) 0.1 Neut # (Auto) 10.0 H Lymph # (Auto) 0.6 L [place] # (Auto) 1.0 H Eos # (Auto) 0.2 Baso # (Auto) 0.0 WBC Differential . Differential Comment Auto diff final PT 11.4 D INR 1.1 Sodium 140 Potassium 3.3 L Chloride 98 Carbon Dioxide 33.6 H Anion Gap 8 BUN 18 Creatinine 0.44 L Estimated GFR Greater than 89 Random Glucose 86 Calcium 9.3 Total Bilirubin 0.4 AST 24 ALT 107 H Alkaline Phosphatase 94 Total Protein 7.9 Albumin 3.6 - Imaging Impressions Chest X-Ray 02/03/18 15:19 CONCLUSION: The right lung apex is suboptimally visualized due to overlapping structures. A subtle miniscule curvilinear lucency projecting over the right lung apex is favored to represent artifact rather than a true pneumothorax. No pneumothorax is identified on the comparison fluoroscopic image obtained after placement of the chest port. Recommend clinical correlation and consideration of follow-up chest radiograph, if clinically warranted. <Sly Cisse - Last Filed: 02/03/18 19:50> Assessment and Plan (1) Dysphagia Status: Acute Code(s): R13.10 - Dysphagia, unspecified - Plan This patient is a 67-year-old female with a past medical history significant for squamous cell carcinoma of the throat, CVA, anemia, hypertension and osteoporosis. This patient was admitted to [facility] with report of dysphagia and odynophagia post radiation treatment. Our service has been consulted to evaluate patient for PEG tube placement. Upon consultation, patient's daughter assisted with history and states that patient was diagnosed in July 2017 with throat cancer. Patient underwent 7 weeks of radiation therapy in August 2017. After 3-4 weeks of radiation therapy patient began to experience difficulty swallowing. Patient is now undergoing immunotherapy first treatment 02/02/2018. Patient reports aching sharp burning type pain on left side of face neck and throat. She states sometimes this pain radiates to her left ear. She rates pain at 10/10. Patient reports difficulty swallowing solid pieces of food as well as hard pieces of food. She denies any coughing or choking. Patient's daughter reports an episode last week where patient ingested medication and a few minutes later the daughter noted a small amount of the medication on a tissue after patient wiped her nasal drainage. Patient and daughter do endorse that patient has had change in voice-hoarseness with nasal congestion intermittently. Daughter states that patient has lost 5 pounds in the last few months. Post- radiation patient states she developed weight loss and was told by radiation oncologist of necrosis present in her throat from radiation therapy. Patient denies heartburn or symptoms of acid reflux, she denies any hematemesis. Patient currently on warfarin 2 mg p.o. daily post CVA. Last dose taken 02/01/2018. Patient endorses that she drinks 2 glasses of wine nightly with dinner. She states that she stopped smoking in September 2017 however she smokes tobacco-1 pack/day for the last 40 years. Patient denies any diarrhea or constipation states she moves her bowels every 2- 3 days soft and brown with no noted bleeding. Patient unsure as to date of last colonoscopy. Dysphagia Patient admitted for complaints of dysphagia and odynophagia post radiation treatment for squamous cell carcinoma of the throat. Patient developed dysphagia post radiation treatments in September 2017. Our service has been consulted to evaluate patient for PEG tube placement. Plan -N.p.o. 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 Cisse and this note is written on his behalf - Attending Attestation Dr. Cisse <Bridget Multani - Last Filed: 02/03/18 12:06> (1) Dysphagia Status: Acute Code(s): R13.10 - Dysphagia, unspecified - Plan Unfortunate lady who had radiation patient has dysphagia she will need PEG tube placement patient agreeable to have that done this will be done tomorrow <Sly Cisse - Last Filed: 02/03/18 19:50>
[2018-02-03] MEDS: Dextrose 5%/NaCl 0.45% Inj 1,000 ML IV.CONT SCH (12:32)
--- NOTE | 2018-02-03 13:40 | P.CONPAL ---
Consult Service: Palliative Care Requesting Physician: Kimo Buitrago Reason for Consult: a. To assist with evaluation and management of symptoms including: Pain. b. To assist medical decision maker(s) with: better understanding of current medical conditions; weighing benefits/burdens of medical treatment options; making medical treatment decisions. Primary Care Provider: UNKNOWN History of Present Illness History of Present Illness: is a 67-year-old female with a medical history significant for recurrent pharyngeal cancer, hypertension, stroke on anticoagulation, right eye blindness and cachexia who was a direct admit to hospital from oncology Dr. Sands for PEG tube and MediPort placement. Palliative care has been consulted for further clarifications of goals of care, assistance with symptom management in the setting of recurrent squamous cell carcinoma and failure to thrive. Patient seen in her room, she was resting in bed in no acute distress. In this first visit, reviewed the role of palliative care in advance illness in regards to pain and symptom management as well as support surrounding goals of care and advanced care planning. Patient and daughter Ceci receptive to palliative care visit. Obtained patient's past medical history and psychosocial history. Reviewed clinical course and current treatment plan. 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 She completed radiation treatment on 11/09/[address] Lopez. Patient reports that after 3-4 weeks post radiation therapy, she began experiencing dysphagia and odynophagia which is now worsening. CT of neck performed on 01/04/18 revealing post radiation changes to include necrosis. Patient was seen by oncology Dr. Sands on 01/27/[address] PET scan 01/31/18 revealed enlarged left oropharyngeal mass consistent with worsening primary despite radiation. Treatment options were discussed by Dr. Sands, patient not a candidate for additional radiation therapy. patient was started on immunotherapy Nivolumab 02/02/18. Daughter relates that tells me that their goal at this point is to improve patient's nutritional and functional status, continue with immunotherapy in hopes of cures patient's cancer or at least to "keep it at bay". Patient reports that she was told that there is approximately a 20% of curing in her cancer with immunotherapy. Daughter reports that patient has continued to have weight loss , current weight is approximately 62 pounds. Patient resides independently, requires assistance with bathing and dressing by daughter who stops by daily after work. Patient with short-term memory since his stroke in September, reports difficulty with self managing medications and care. Patient ambulating with cane prior to this hospitalization, reporting generalized debility. Daughter share concerns of patient's ability to continue residing independently, discussed that patient may require long-term facility placement in the future. Patient verbalized that she is receptive to long-term placement as she acknowledges her current limitations. Reviewed recurrence of primary cancer despite radiation therapy, share concerns of patient's nutritional and performance status and risk for further decline given the above. Daughter inquiring regarding hospice services. Reviewed hospice philosophy and benefits as well as the future role of hospice should patient's symptom burden increases , additional functional decline or she is no longer a candidate for systemic treatment. Reviewed advanced directives, patient receptive to completion of advance directives with palliative care social security assessor. She wishes to name her daughter Ceci as healthcare surrogate decision maker. Patient and daughter receptive to palliative care follow-ups. Function/Cognitive Trajectory: Patient resides independently, requires assistance with bathing and dressing by daughter who stops by daily after work. Patient with short-term memory since his stroke in September, reports difficulty with self managing medications and care. Patient ambulating with cane prior to this hospitalization, reporting generalized debility. Review of Systems Constitutional: Reports fatigue, Reports headache(s), Reports lack of energy, Reports weakness, Reports weight loss, Denies chills, Denies fever(s) Eyes: Reports blind spots, Reports loss of vision, Denies discharge Ears, Nose, Mouth, and Throat: Reports change in voice, Reports difficulty swallowing, Reports dry mouth, Reports facial pain, Reports hoarseness, Reports neck lump, Reports pain with swallowing, Reports sore throat Cardiovascular: Denies chest pain, Denies fast heart rate, Denies leg sores, Denies lightheadedness, Denies shortness of breath Respiratory: Denies chest congestion, Denies cough, Denies coughing up blood Gastrointestinal: Reports difficulty swallowing, Denies abdominal pain, Denies bright, red blood in stools, Denies incontinent of stools, Denies nausea, Denies vomiting Genitourinary: Denies blood in urine Musculoskeletal: Reports decreased muscle mass, Denies body aches Skin/Breast: Denies bleeding lesions Neurologic: Reports headache(s), Reports memory loss, Denies localized weakness Psychiatric: Denies change in appetite Endocrine: Denies heat intolerance PMFSH - History History Provided By: Patient, Family Member - Medical History Medical History: Medical History (Last Reviewed 02/03/18 @ 11:54 by Xochitl Estrada) CVA (cerebral vascular accident) Hyperlipidemia Anemia Hypertension Osteoporosis Retina disorder, right Throat cancer - Surgical History Surgical History: Surgical History (Last Reviewed 02/03/18 @ 11:54 by Xochitl Estrada) Hx of biopsy - Family History Family History: Family History (Last Updated 02/03/18 @ 13:01 by Rosita Yadav APRN) Father Hypertension Diabetes - Tobacco History Second Hand Smoke Exposure: No Tobacco Use In Past 30 Days: No Smoking Status: Former smoker (Quit in September 2017) Tobacco Type: Cigarettes Packs Per Day: 1.5 Years Smoked: 30 - Alcohol History How Often Do You Have a Drink Containing Alcohol: 4 or more times a week (Quit in September 2017) - Substance Use History Substance History: No History of Abuse - Substance Use Type Alcohol Status: Active Route Used: By Mouth Medications and Allergies Active Medications: Active Medications Acetaminophen (Tylenol) 650 mg PO Q4H PRN PRN Reason: Temp > 100.4, pain 1-2 Hydrocodone Bitart/Acetaminophen (Hycet 325/7.5 Mg Liq) 15 ml PO Q4HR ANAIS Heparin Sodium (Porcine) (Heparin Inj) 5,000 units SQ Q8HR ANAIS Hydromorphone HCl (Dilaudid Pf Inj) 1 mg IV.PUSH Q4H PRN PRN Reason: BREAKTHROUGH PAIN Last Admin: 02/03/18 11:14 Dose: 1 mg Dextrose/Sodium Chloride (D5w/1/2 Ns Inj) 1,000 mls @ 100 mls/hr IV.CONT .Q10H ANAIS Methadone HCl (Dolophine) 2.5 mg PO DAILY ANAIS Last Admin: 02/03/18 11:14 Dose: 2.5 mg Miscellaneous (Pill Splitter) 1 each OTHER UNSCH PRN PRN Reason: SEE LABEL COMMENTS Multi-Ingredient Mouthwash/Gargle (Magic Mouthwash Adult Liq) 10 ml SWISH-SWAL QID ANAIS Ondansetron HCl (Zofran Inj) 4 mg IV.PUSH Q6H PRN PRN Reason: NAUSEA OR VOMITING Senna/Docusate Sodium (Casi-Colace) 1 tab PO BID ANAIS Allergies Allergy/AdvReac Type Severity Reaction Status Date / Time No Known Allergies Allergy Verified 01/18/18 08:05 Home Medications Medication Instructions Recorded Confirmed Type amlodipine 5 mg PO BID 09/30/17 02/03/18 History mouthwash compounding base 227 5 ml MUCOUS MEMBRANE ACHS 09/30/17 01/18/18 History warfarin [Coumadin] 2 mg PO DAILY@1600 01/18/18 02/03/18 History morphine [MS Contin] 15 mg PO Q12H 02/03/18 02/03/18 History Advance Directives Living Will: No Healthcare Surrogate: No Power of Heating Element Builder: No Physical Exam Vital Signs: Vital Signs - 24 hr 02/03/18 09:03 Temperature 98.3 F Blood Pressure 142/70 H Physical Exam: CONSTITUTIONAL/GENERAL: Cachectic female sitting up in bed in no acute distress. TUBES/LINES/DRAINS: PIV's. SKIN: Pale. No jaundice, rashes, or lesions. No wounds seen anteriorly. Skin temperature appropriate. Not diaphoretic. HEAD: Atraumatic. Normocephalic. EYES: Pupils equal and round and reactive. Extraocular motions intact. No scleral icterus. No injection or drainage. ENT: Hearing grossly normal. Nose without bleeding or purulent drainage. Moist oral mucosa. Tender to touch left side of jaw and neck. NECK: Trachea midline. CARDIOVASCULAR: Regular rate and rhythm. Peripheral pulses symmetric. RESPIRATORY/CHEST: Symmetric, unlabored respirations. Clear to auscultation. Breath sounds equal bilaterally. No wheezes, rales, or rhonchi. GASTROINTESTINAL: Abdomen soft, non-tender, nondistended. No hepato-splenomegaly , or palpable masses. No guarding. Bowel sounds present. GENITOURINARY: Without palpable bladder distension. MUSCULOSKELETAL: Extremities without clubbing, cyanosis, or edema. No mottling or clubbing. Muscle atrophy to all 4 extremities. NEUROLOGICAL: Awake and alert. Motor and sensory grossly within normal limits. Follows commands. Cognitively sharp. Moves all extremities. PSYCHIATRIC: No obvious anxiety/depression. Pleasant and cooperative. Diagnostic Tests Laboratory: Laboratory Results - last 72 hr 02/03/18 02/03/18 02/03/18 11:15 11:15 11:15 WBC 11.7 H RBC 3.84 L Hgb 12.7 Hct 38.4 MCV 100.1 H MCH 33.2 MCHC 33.2 RDW 13.1 Plt Count 314 MPV 7.3 Neut % (Auto) 85.1 H Lymph % (Auto) 5.2 L [place] % (Auto) 8.3 H Eos % (Auto) 1.3 Baso % (Auto) 0.1 Neut # (Auto) 10.0 H Lymph # (Auto) 0.6 L [place] # (Auto) 1.0 H Eos # (Auto) 0.2 Baso # (Auto) 0.0 WBC Differential . Differential Comment Auto diff final PT 11.4 D INR 1.1 Sodium 140 Potassium 3.3 L Chloride 98 Carbon Dioxide 33.6 H Anion Gap 8 BUN 18 Creatinine 0.44 L Estimated GFR Greater than 89 Random Glucose 86 Calcium 9.3 Total Bilirubin 0.4 AST 24 ALT 107 H Alkaline Phosphatase 94 Total Protein 7.9 Albumin 3.6 Result Diagrams: 02/03/18 11:15 02/03/18 11:15 Patient/Family Conference Present at Family Conference: Patient and daughter Ceci. Family Conference Time: 42 Family Conference Location: Bedside Issues Discussed: * Palliative care role, purpose, approach * Additional medical, psychosocial, and spiritual history * Patients general health, functional status, and cognitive changes in the months leading up to the current hospitalization * Patient/family understanding of the current medical problems * Patient/family understanding of prognosis * Patients goals of care as best understood from advance directives and/or conversations and/or values * Current medical treatment options and benefits/burdens of those options * Questions answered to the best of my ability * Palliative care contact information provided * Hospice philosophy and benefits * Risks, benefits and limitations of CPR, intubation and mechanical ventilation Assessment and Plan - Disease Oriented Problem List (1) Dysphagia (2) Failure to thrive (3) Cachexia (4) Stroke (5) Hypertension (6) Throat cancer - Symptom Scale (1) Odynophagia 0-10 Scale: 6 (2) Weight loss 0-10 Scale: Unable to quantify Pertinent Non-Medical Issues: Psychosocial: Patient originally from [place]. In [place] for the past 40 years. She is , a year ago. She has 5 children, 4 in [place] and one in [place]. 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 Spiritual: [employer]. Legal: No advance directives completed. Ethical issues impacting care: No ethical issues identified. 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 Patient not a chemotherapy candidate given functional status, she is cachectic with progressive weight loss. Now with worsening dysphagia and odynophagia. She remains at high risk for further decompensation, continued decline and . Code Status: Full Code Plan: * CODE STATUS: Full code. Risks, benefits and limitations of CPR, intubation and mechanical ventilation discussed with patient and daughter Ceci. * HEALTHCARE DECISION-MAKING: Patient participated in medical decision making. She appears to retain the ability to weight benefits versus burdens of treatment options. No advance directives completed. Patient is . As per [place] statue, healthcare proxy decision making falls to the majority of patient's children for which she has 5. Patient wishing to designate her daughter Ceci Cruz as healthcare surrogate, advanced directives forms left at bedside. * GOALS OF CARE: Patient wishing to pursue aggressive management to include placement of MediPort and PEG tube feedings and to continue with immunotherapy at the guidance of Dr. Sands. Her main goal is to maximize her nutritional of physical status to remain in independent living for "as long as she can"; however, receptive to rehab vs long-term facility placement as indicated. Daughter verbalizing concerns of patient's ability to remain independent given progressive physical and cognitive decline. Patient with short-term memory issues since stroke in September 2017. Daughter inquiring about hospice, reviewed hospice philosophy and benefits. Reviewed the future role of hospice should patient's symptoms burden increases or in the setting of additional functional decline. * SYMPTOMS: = Dysphagia/odynophagia. Secondary to throat cancer status post radiation complicated by post radiation changes to include necrosis. Patient reports odynophagia is worsening, unable to tolerate any food consistency. Plan for PEG tube during this admission. Pending speech therapy evaluation, modified barium swallow eval. Home regimen to include hydrocodone/APAP 7.5/ 325mg every 4 hours as needed and morphine ER 15 mg every 12 hours. Patient reports that home regimen was not effective, taking hydrocodone about 4 times per day. Home regimen total of approximately 60 mg of oral morphine equivalent per day. She was started on methadone 2.5 p.o. daily today, methadone is a great choice for this patient in the setting of PEG tube given methadone's long half-life. Recommending starting dose for this patient given home regimen of 60 mg of oral morphine equivalents per day is 10 to 15 mg of methadone daily. Palliative care recommends increasing methadone daily dose to 5mg BID -hold for sedation. Patient was continued on Hydrocodone/apap 7.5/325 q4hrs PRN, patient reports that this dose is not effective. Palliative care recommends switching to Morphine liquid (Roxinol 20mg/ml) 10mg PO/peg q4hrs PRN moderate pain or 15mg PO/Peg q4hrs PRN severe pain. Patient to continue with hydromorphone 1mg IV q 4hrs PRN for severe pain, rescue dose. Patient reports this dose is effective. * Palliative care to provide assistance with completion of advance directives. Living will and designation of healthcare surrogate forms left with patient's daughter. * Palliative care will continue to follow-up for further clarifications of goals of care, symptom management recommendation and family support as patient' s clinical course continues to evolve. Time Spent Total Floor Time (mins): 68 (Total time to include review of summarization of available medical records to include outpatient oncology and radiation notes, physical exam, goals of care conversation with patient and daughter.) >50% Time in Counseling or Coordination of Care: Yes (Total visit time = 68 minutes; > 50% spent counseling/coordinating care) Appreciation Thank you for the opportunity to participate in the care of Beryl Rodriguez. Attestation Attestation: To help prompt me to consider important information that might be impacting today's encounter and assessment, information from prior notes written by myself or my colleagues may have been "brought forward" into today's note. My signature on this note, however, is an attestation that I personally performed the exam, history, and/or decision-making noted today, and, unless otherwise indicated, the interactions with patient, family, and staff as well as the review of records all occurred today. I also attest that the listed assessment and stated plan reflect my best clinical judgment today based on the combination of historical information, prior notes, and today's exam/ interactions. When time spent is documented, it refers only to time spent today by the signer, or if indicated, combined time spent today by collaborating physician/nurse practitioner.
[2018-02-03] MEDS ORDERED: Morphine Sulfate Oral Liq 10 MG/0.5 ML Syringe PO PRN (14:03)
[2018-02-03] MEDS ORDERED: fentaNYL Citrate Inj 250 MCG/5 ML Ampul ONE (14:13)
[2018-02-03] MEDS ORDERED: *Heparin Central Flush 100 UNIT/ML 5 ML Vial PERIprocedural ONLY IV.FLUSH ONE (14:31)
[2018-02-03] MEDS ORDERED: Lidocaine 1%/Epinephrine 1:100,000 Inj 30 ML Vial ONE (14:31)
--- NOTE | 2018-02-03 15:22 | P.RAD ---
Post Procedure Progress Note - Pre Procedure Diagnosis (1) Throat cancer - Post Procedure Diagnosis (1) Throat cancer - Procedure Information Procedure Date: 02/03/18 Supervising Radiologist: Smith Romero MD Estimated blood loss (mL): 3 Anesthesia: Local, Conscious Sedation - Plan of Activity Patient to Unit: ROP[facility] Patient Condition: Good Additional Comments: Port placed via the right IJ Catheter in good position Ok for use See PACS Report for procedural detail/treatment.
--- NOTE | 2018-02-03 17:11 | XR ---
EXAM DATE: 02/03/2018 5:01 PM EST AGE/SEX: 67 years / Female INDICATIONS: Post port placement. CLINICAL DATA: This is the patient's initial encounter. Patient reports that signs and symptoms have been present for 1 day and indicates a pain score of 0/10. MEDICAL/SURGICAL HISTORY: . Hypertension. Osteoporosis. Throat cancer . [place]ort. [place] [facility] [place], 02/[place]/2018. . FINDINGS: A single frontal expiratory view of the chest was performed. The lungs are symmetrically aerated wit hout appreciable focal consolidation. The right lung apex is suboptimally visualized due to overlappi ng osseous structures and soft tissue. There is a subtle miniscule curvilinear lucency projecting ove r the right lung apex, though this is favored to represent artifactual tissue shadow rather than a tr ue pneumothorax. No pneumothorax is identified on the comparison fluoroscopic image obtained after pl acement of the chest port. Mediastinal structures are in the midline. Right chest port with distal ti p projecting over the cavoatrial junction. Cardiac loop recorder. CONCLUSION: The right lung apex is suboptimally visualized due to overlapping structures. A subtle miniscule curv ilinear lucency projecting over the right lung apex is favored to represent artifact rather than a tr ue pneumothorax. No pneumothorax is identified on the comparison fluoroscopic image obtained after pl acement of the chest port. Recommend clinical correlation and consideration of follow-up chest radiog raph, if clinically warranted. Electronically signed by: Vivian Rush MD 02/03/2018 5:07 PM EST
[2018-02-03] MEDS: Morphine Sulfate Oral Liq 10 MG/0.5 ML Syringe PO PRN (17:30)
[2018-02-03] MEDS: Methadone 10 MG Tablet PO SCH (21:01)
[2018-02-03] MEDS: Senna/Docusate Sodium 8.6/50 MG Tablet PO SCH (21:01)
[2018-02-04] MEDS: Dextrose 5%/NaCl 0.45% Inj 1,000 ML IV.CONT SCH ×2 (02:23→14:55)
[2018-02-04] MEDS: HYDROmorphone PF Inj 2 MG/ML Vial IV.PUSH PRN ×2 (02:25→14:33)
--- NOTE | 2018-02-04 07:31 | IR ---
EXAM DATE: 02/03/2018 3:34 PM EST AGE/SEX: 67 years / Female INDICATIONS: Patient presents with squamous cell carcinoma of the throat in need of port placement f or treatment. CLINICAL DATA: This is the patient's initial encounter. Patient reports that signs and symptoms have been present for 2 months and indicates a pain score of 10/10. MEDICAL/SURGICAL HISTORY: Anemia. Hypertension. Osteoporosis. CVA, Hyperlipidemia, Retina di sorder, Throat cancer . History of biopsy COMPARISON: No prior exams available for comparison. FLUORO TIME (min): 0.4 IMAGE SERIES: 2 SEDATION TIME (min): 30 MEDICATION(S): 3mg midazolam (Versed) IV 150mcg fentanyl (Sublimaze) IV DEVICE(S): Right 8F AngioDynamics Port . . PROCEDURE : 1. Continuous pulse oximetry and EKG monitoring. 2. Intravenous conscious sedation. 3. Ultrasound guidance for venous access. 4. Fluoroscopic guided implantable central venous port placement. The patient was placed supine. The neck was prepped in sterile fashion. Full sterile technique was u sed, including cap, mask, sterile gloves and gown, and a large sterile sheet. Hand hygiene and 2% ch lorhexidine Betadine was utilized per protocol for cutaneous antisepsis with appropriate dry time for site. Sterile gel and sterile probe cover were utilized for ultrasound guidance. The skin and sub cutaneous tissues were infiltrated with local anesthetic solution. Under direct ultrasound guidance, central venous access was accomplished in the targeted vessel. The ultrasound images depicting access guidance were stored and saved to PACS for permanent record. A s ubcutaneous pocket was created using blunt dissection. The port was introduced to the pocket. The c atheter tubing was fed through a subcutaneous tunnel to the venotomy site. The catheter tubing was c ut to a suitable length and then was introduced through a valved Peel-Away sheath and positioned with catheter tubing tip at the cavo-atrial junction level. The pocket incision was closed with subcutic ular Vicryl suture. Steri-Strips were applied. The port was flushed and locked with heparin solutio n per protocol. Sterile dressing was applied to the site. The patient tolerated the procedure well. Conscious sedation was performed with the prescribed dosages and duration as above in the presence of an independent trained radiology nurse to assist in the monitoring of the patient. EKG and oximetry remained stable throughout the procedure. The patient tolerated the procedure well and there were no complications. The patient was sent to post anesthesia recovery in stable condition. CONCLUSION: 1. Uncomplicated ultrasound and fluoroscopic guided implanted central venous port catheter placement as described in detail above. An 8 [place] Power port was placed. Electronically signed by: Smith Rmoero MD 02/04/2018 7:30 AM EST
[2018-02-04] MEDS: Methadone 10 MG Tablet PO SCH (09:00)
[2018-02-04 09:35] LABS: Eos # (Auto) 0.1 th/mm3 (0.0-0.4); Eos % (Auto) 0.4 % (0.0-4.0); Hematocrit 38.1 % (35.0-46.0); Hemoglobin 12.8 gm/dL (11.6-15.3); Lymph # (Auto) 0.6 th/mm3 (1.0-4.8); Lymph % (Auto) 4.5 % (9.0-44.0); Mean Corpuscular HGB Conc 33.7 % (32.0-36.0); Mean Corpuscular Hemoglobin 33.9 pg (27.0-34.0); Mean Corpuscular Volume 100.5 fL (80.0-100.0); Mean Platelet Volume 7.5 fL (7.0-11.0); Mono # (Auto) 0.9 th/mm3 (0.0-0.9); Mono % (Auto) 6.6 % (0.0-8.0); Neut # (Auto) 12.4 th/mm3 (1.8-7.7); Neut % (Auto) 88.5 % (16.0-70.0); Platelet Count 332 th/mm3 (150-450); Red Blood Count 3.79 mil/mm3 (4.00-5.30); Red Cell Distribution Width 13.3 % (11.6-17.2); White Blood Count 14.1 th/mm3 (4.0-11.0)
--- NOTE | 2018-02-04 09:59 | P.PCN ---
Date of procedure: 02/04/18 Pre-op diagnosis: Throat cancer, dysphagia Procedure: PROCEDURE PERFORMED EGD with PEG placement PROCEDURE: The procedure, risks and benefits were discussed with Patient/POA and informed consent was obtained. Anesthesia sedated Patient with Diprivan. Patient was placed in the left lateral decubitus position. EGD: The Pentax videoscope was introduced through the oropharynx and advanced to the second portion of the duodenum under direct visualization. Retroflexion was performed in the stomach. FINDINGS: The esophagus this appeared to be unremarkable with normal limits The stomach this to appear to be unremarkable and within normal limits The duodenum this to appear to be unremarkable with normal limits Following the evaluation of the stomach and the duodenum the stomach was insufflated with air and the area of PEG placement was identified through indentation and transillumination the area was prepped and draped in usual fashion 5 cc of lidocaine were injected locally a small incision was made then an Angiocath was passed into the stomach through which a guidewire was passed this was retrieved with the scope into that a PEG tube was attached and pulled into place and thereafter secured in usual fashion The patient tolerated procedure well and there are no immediate complications ESTIMATED BLOOD LOSS: None SPECIMENS REMOVED: None COMPLICATIONS: None IMPRESSION: Normal EGD Successful PEG placement PLAN: 1. May use PEG tube for medications today 2. May start feeding tomorrow 3. May obtain nutritional consult for tube feeding 4. Flush tube with 50 cc of water every 4-6 hours 5. Always flush tube after feedings 6. Apply abdominal binder as necessary 7. Clamp G-tube after use and flush. Anesthesia: MAC Surgeon: Garrett Hollins Condition: stable Disposition: floor
[2018-02-04 10:07] LABS: Alanine Aminotransferase 83 U/L (10-53); Albumin 3.4 g/dL (3.4-5.0); Alkaline Phosphatase 98 U/L (45-117); Anion Gap 11 meq/L (5-15); Aspartate Aminotransferase 25 U/L (15-37); Blood Urea Nitrogen 7 mg/dL (7-18); Carbon Dioxide 30.9 meq/L (21.0-32.0); Chloride 92 meq/L (98-107); Glomerular Filtration Rate Greater Than 89 mL/min (>89); Glucose,Random 121 mg/dL (74-106); Sodium 134 meq/L (136-145); Total Protein 7.7 g/dL (6.4-8.2)
[2018-02-04 10:10] LABS: Potassium 2.7 meq/L (3.5-5.1)
[2018-02-04] MEDS: Nystatin/Diphenhydramine/Lidocaine Mouthwash (Adult) 120 ML Botttle SWISH-SWAL SCH ×3 (11:30→19:09)
[2018-02-04] MEDS: Senna/Docusate Sodium 8.6/50 MG Tablet PO SCH (11:30)
[2018-02-04] MEDS: Morphine Sulfate Oral Liq 10 MG/0.5 ML Syringe PO PRN ×2 (12:51→19:13)
[2018-02-04] MEDS: Heparin - SQ 10,000 UNITS/ML Vial SQ SCH ×2 (14:00→20:13)
--- NOTE | 2018-02-04 14:11 | P.PNIM ---
Subjective Interval history: The patient had her feeding tube placed today. She was complaining of swelling and pain on the left side of her face. Her family was at the bedside. The patient was not able to eat or swallow. Physical Exam Vital signs: Vital Signs 02/03/18 15:25 02/03/18 15:40 02/03/18 16:10 Temperature 98.0 F Pulse Rate 85 89 88 Respiratory Rate 18 18 18 Blood Pressure 115/50 L 110/47 L 110/47 L Pulse Oximetry 89 L 95 97 02/03/18 16:40 02/03/18 17:28 02/03/18 19:49 Temperature 98.5 F Pulse Rate 88 80 95 H Respiratory Rate 18 16 Blood Pressure 122/53 L 132/62 Pulse Oximetry 98 97 02/03/18 20:51 02/03/18 21:30 02/04/18 00:08 Temperature 98.6 F Pulse Rate 79 74 Respiratory Rate 16 16 Blood Pressure 142/73 H Pulse Oximetry 96 02/04/18 00:48 02/04/18 02:55 02/04/18 04:50 Temperature 98.4 F 99.1 F Pulse Rate 85 101 H Respiratory Rate 16 18 16 Blood Pressure 136/68 178/78 H Pulse Oximetry 95 95 02/04/18 05:37 02/04/18 06:05 02/04/18 07:48 Temperature Pulse Rate 92 H 71 Respiratory Rate 18 Blood Pressure 162/71 H Pulse Oximetry 02/04/18 08:19 02/04/18 10:05 02/04/18 11:25 Temperature 100 F H 97.0 F L 98.8 F Pulse Rate 91 H 85 89 Respiratory Rate 16 16 16 Blood Pressure 139/70 146/66 H 122/68 Pulse Oximetry 94 L 95 92 L Intake & Output 02/03/18 02/04/18 02/04/18 18:59 06:59 18:59 Intake Total 1438 / 1438 200 / 200 Output Total 600 / 600 Balance 838 / 838 200 / 200 Weight 28.1 kg 28.1 kg Intake: IV 1338 / 1338 D5W/1/2 NS Inj 1,000 ML @ 100 1338 / 1338 mls/hr IV.CONT .Q10H [facility] Rx#: [id number] Oral 100 / 100 Anesthesia Amount 200 / 200 Output: Urine 600 / 600 Other: # Voids 4 1 Date of Last Bowel Movement 02/02/18 02/02/18 02/02/18 Weight On Admission 28.1 kg Narrative: General: NAD, cachectic. HEENT: Tenderness to palpation on left side of jaw and anterior neck. Oral thrush noted. Lungs: CTAB. Cardiac: RRR. No M/R/G. GI: Thins abdomen. Soft. PEG tube in place. Mild tenderness to palpation around the PEG tube site. Extremities: No edema. Neuro: Awake and alert. Moves upper and lower extremities. Psych: Mood and affect appropriate. Results - Labs CBC & Chem 7: 02/04/18 08:14 02/04/18 08:18 Laboratory Results - last 24 hr 02/04/18 02/04/18 02/04/18 08:14 08:18 08:18 WBC 14.1 H RBC 3.79 L Hgb 12.8 Hct 38.1 MCV 100.5 H MCH 33.9 MCHC 33.7 RDW 13.3 Plt Count 332 MPV 7.5 Neut % (Auto) 88.5 H Lymph % (Auto) 4.5 L Bullock % (Auto) 6.6 Eos % (Auto) 0.4 Baso % (Auto) 0.0 Neut # (Auto) 12.4 H Lymph # (Auto) 0.6 L Bullock # (Auto) 0.9 Eos # (Auto) 0.1 Baso # (Auto) 0.0 WBC Differential . Differential Comment Auto diff final PT 10.0 INR 1.0 Sodium 134 L Potassium 2.7 L* Chloride 92 L Carbon Dioxide 30.9 Anion Gap 11 BUN 7 Creatinine 0.44 L Estimated GFR Greater than 89 Random Glucose 121 H Calcium 9.0 Total Bilirubin 0.9 AST 25 ALT 83 H Alkaline Phosphatase 98 Total Protein 7.7 Albumin 3.4 - Imaging Impressions Port Line Insertion 02/03/18 00:00 CONCLUSION: 1. Uncomplicated ultrasound and fluoroscopic guided implanted central venous port catheter placement as described in detail above. An 8 Swedish Power port was placed. Chest X-Ray 02/03/18 15:19 CONCLUSION: The right lung apex is suboptimally visualized due to overlapping structures. A subtle miniscule curvilinear lucency projecting over the right lung apex is favored to represent artifact rather than a true pneumothorax. No pneumothorax is identified on the comparison fluoroscopic image obtained after placement of the chest port. Recommend clinical correlation and consideration of follow-up chest radiograph, if clinically warranted. Assessment and Plan - Plan Failure to thrive The pt has squamous cell carcinoma of the throat. She has significant dysphagia. She was referred to the hospital by her oncologist. She was started on immunotherapy on 02/02. GI consult appreciated. S/p PEG tube placement. IR consulted and port has been placed. Having left sided facial swelling and pain. -speech therapy eval, modified barium swallow. -D5 1/2 NS. Keep NPO at this time. -Palliative care consult appreciated. Continue pain control with liquid morphine , methadone and IV Dilaudid for breakthrough pain. -Magic mouthwash. -oncology consult requested. Cachexia/ Malnourishment The pt has a BMI of 13, indicating severe malnourishment. -tube feeds. Press Setup Operator consulted for recs. -IVFs. CVA Has vision loss and memory problems. On Coumadin. -hold Coumadin and follow INR. -PT eval. PPx: Heparin
[2018-02-04] MEDS: Potassium Chlor 20 mEq Premix 20 MEQ/100 ML PIGGYBACK IV.SIG SCH (14:35)
--- NOTE | 2018-02-04 15:16 | P.PNPAL ---
Reason for Visit Reason for visit: a. To assist with evaluation and management of symptoms including: Pain. b. To assist medical decision maker(s) with: better understanding of current medical conditions; weighing benefits/burdens of medical treatment options; making medical treatment decisions. Subjective Subjective/Interval History: Palliative care follow-up for further clarifications of goals of care, assistance with symptom management and family support. Patient seen in her room , status post PEG tube placement. Endorsing pain to left side of her jaw, she feels that is more swollen than yesterday. Pain described as throbbing, 10 out of 10. Exacerbated by swallowing and alleviated by pain medication. Patient continuing to worsen dysphagia and odynophagia. Endorsing feeling very tired today as she had one procedure yesterday and 1 procedure today. Laboratory workup today revealing potassium 2.7, potassium currently being replaced. Patient afebrile, stable hemodynamically. Denies shortness of breath, nausea vomiting or abdominal discomfort. Daughter Ceci at bedside. Daughter reports that she spoke with case making machine operator earlier this morning, electing to discharge home with home health. Has used nurse on-call services in the past. Daughter and patient requesting for palliative care to follow-up on Wednesday for further clarifications of goals of care and assistance with completion of advance directives. CODE STATUS discussed, patient to remain full code at this time pending additional conversations with her family. Advance Directives Living Will: Never completed Health Care Surrogate: Never completed Durable Power of Floor Covering Layer: Never completed Objective Vital Signs: Vital Signs 02/03/18 15:25 02/03/18 15:40 02/03/18 16:10 Temperature 98.0 F Pulse Rate 85 89 88 Respiratory Rate 18 18 18 Blood Pressure 115/50 L 110/47 L 110/47 L Pulse Oximetry 89 L 95 97 02/03/18 16:40 02/03/18 17:28 02/03/18 19:49 Temperature 98.5 F Pulse Rate 88 80 95 H Respiratory Rate 18 16 Blood Pressure 122/53 L 132/62 Pulse Oximetry 98 97 02/03/18 20:51 02/03/18 21:30 02/04/18 00:08 Temperature 98.6 F Pulse Rate 79 74 Respiratory Rate 16 16 Blood Pressure 142/73 H Pulse Oximetry 96 02/04/18 00:48 02/04/18 02:55 02/04/18 04:50 Temperature 98.4 F 99.1 F Pulse Rate 85 101 H Respiratory Rate 16 Blood Pressure 136/68 178/78 H Pulse Oximetry 95 95 02/04/18 05:37 02/04/18 06:05 02/04/18 07:48 Temperature Pulse Rate 92 H 71 Respiratory Rate 18 Blood Pressure 162/71 H Pulse Oximetry 02/04/18 08:19 02/04/18 10:05 02/04/18 11:25 Temperature 100 F H 97.0 F L 98.8 F Pulse Rate 91 H 85 89 Respiratory Rate 16 Blood Pressure 139/70 146/66 H 122/68 Pulse Oximetry 94 L 95 92 L Intake & Output 02/03/18 02/04/18 02/04/18 18:59 06:59 18:59 Intake Total 1438 / 1438 200 / 200 Output Total 600 / 600 Balance 838 / 838 200 / 200 Weight 28.1 kg 28.1 kg Intake: IV 1338 / 1338 D5W/1/2 NS Inj 1,000 ML @ 100 1338 / 1338 mls/hr IV.CONT .Q10H [facility] Rx#: [id number] Oral 100 / 100 Anesthesia Amount 200 / 200 Output: Urine 600 / 600 Other: # Voids 4 1 Date of Last Bowel Movement 02/02/18 02/02/18 02/02/18 Weight On Admission 28.1 kg Physical Exam: CONSTITUTIONAL/GENERAL: Cachectic female sitting up in bed in no acute distress. TUBES/LINES/DRAINS: PIV's, PEG tube placement. SKIN: Pale. No jaundice, rashes, or lesions. No wounds seen anteriorly. Skin temperature appropriate. Not diaphoretic. HEAD: Atraumatic. Normocephalic. EYES: Pupils equal and round and reactive. Extraocular motions intact. No scleral icterus. No injection or drainage. ENT: Hearing grossly normal. Nose without bleeding or purulent drainage. Moist oral mucosa. Edema to left side of the jaw, tender to touch. NECK: Trachea midline. CARDIOVASCULAR: Regular rate and rhythm. Peripheral pulses symmetric. RESPIRATORY/CHEST: Symmetric, unlabored respirations. Clear to auscultation. Breath sounds equal bilaterally. No wheezes, rales, or rhonchi. GASTROINTESTINAL: Abdomen soft, non-tender, nondistended. No hepato-splenomegaly , or palpable masses. No guarding. Bowel sounds present. GENITOURINARY: Without palpable bladder distension. MUSCULOSKELETAL: Extremities without clubbing, cyanosis, or edema. No mottling or clubbing. Muscle atrophy to all 4 extremities. NEUROLOGICAL: Awake and alert. Motor and sensory grossly within normal limits. Follows commands. Cognitively sharp. Moves all extremities. PSYCHIATRIC: No obvious anxiety/depression. Pleasant and cooperative. Diagnostic Tests Laboratory: Laboratory Results - last 72 hr 02/03/18 02/03/18 02/03/18 11:15 11:15 11:15 WBC 11.7 H RBC 3.84 L Hgb 12.7 Hct 38.4 MCV 100.1 H MCH 33.2 MCHC 33.2 RDW 13.1 Plt Count 314 MPV 7.3 Neut % (Auto) 85.1 H Lymph % (Auto) 5.2 L Whitley % (Auto) 8.3 H Eos % (Auto) 1.3 Baso % (Auto) 0.1 Neut # (Auto) 10.0 H Lymph # (Auto) 0.6 L Whitley # (Auto) 1.0 H Eos # (Auto) 0.2 Baso # (Auto) 0.0 WBC Differential . Differential Comment Auto diff final PT 11.4 D INR 1.1 Sodium 140 Potassium 3.3 L Chloride 98 Carbon Dioxide 33.6 H Anion Gap 8 BUN 18 Creatinine 0.44 L Estimated GFR Greater than 89 Random Glucose 86 Calcium 9.3 Magnesium Total Bilirubin 0.4 AST 24 ALT 107 H Alkaline Phosphatase 94 Total Protein 7.9 Albumin 3.6 02/04/18 02/04/18 02/04/18 08:14 08:18 08:18 WBC 14.1 H RBC 3.79 L Hgb 12.8 Hct 38.1 MCV 100.5 H MCH 33.9 MCHC 33.7 RDW 13.3 Plt Count 332 MPV 7.5 Neut % (Auto) 88.5 H Lymph % (Auto) 4.5 L Whitley % (Auto) 6.6 Eos % (Auto) 0.4 Baso % (Auto) 0.0 Neut # (Auto) 12.4 H Lymph # (Auto) 0.6 L Whitley # (Auto) 0.9 Eos # (Auto) 0.1 Baso # (Auto) 0.0 WBC Differential . Differential Comment Auto diff final PT 10.0 INR 1.0 Sodium 134 L Potassium 2.7 L* Chloride 92 L Carbon Dioxide 30.9 Anion Gap 11 BUN 7 Creatinine 0.44 L Estimated GFR Greater than 89 Random Glucose 121 H Calcium 9.0 Magnesium Total Bilirubin 0.9 AST 25 ALT 83 H Alkaline Phosphatase 98 Total Protein 7.7 Albumin 3.4 02/04/18 08:18 WBC RBC Hgb Hct MCV MCH MCHC RDW Plt Count MPV Neut % (Auto) Lymph % (Auto) Whitley % (Auto) Eos % (Auto) Baso % (Auto) Neut # (Auto) Lymph # (Auto) Whitley # (Auto) Eos # (Auto) Baso # (Auto) WBC Differential Differential Comment PT INR Sodium Potassium Chloride Carbon Dioxide Anion Gap BUN Creatinine Estimated GFR Random Glucose Calcium Magnesium 1.9 Total Bilirubin AST ALT Alkaline Phosphatase Total Protein Albumin Result Diagrams: 02/04/18 08:14 02/04/18 08:18 Procedures: 02/03/18: MediPort 02/04/18: PEG tube Assessment and Plan - Disease Oriented Problem List (1) Dysphagia (2) Failure to thrive (3) Cachexia (4) Stroke (5) Hypertension (6) Throat cancer - Symptom Scale (1) Odynophagia 0-10 Scale: 10 (2) Weight loss 0-10 Scale: Unable to quantify Pertinent Non-Medical Issues: Psychosocial: Patient originally from [place]. In [place] for the past 40 years. She is , a year ago. She has 5 children, 4 in [place] and one in [place]. 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 Spiritual: [employer]. Legal: No advance directives completed. Ethical issues impacting care: No ethical issues identified. 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 Patient not a chemotherapy candidate given functional status, she is cachectic with progressive weight loss. Now with worsening dysphagia and odynophagia. She remains at high risk for further decompensation, continued decline and . Code Status: Full Code Plan: * CODE STATUS: Full code. Risks, benefits and limitations of CPR, intubation and mechanical ventilation discussed with patient and daughter Ceci. * HEALTHCARE DECISION-MAKING: Patient participated in medical decision making. She appears to retain the ability to weight benefits versus burdens of treatment options. No advance directives completed. Patient is . As per [place] statue, healthcare proxy decision making falls to the majority of patient's children for which she has 5. Patient wishing to designate her daughter Ceci Cruz as healthcare surrogate, advanced directives forms left at bedside. * GOALS OF CARE: Patient wishing to pursue aggressive management to include placement of MediPort and PEG tube feedings and to continue with immunotherapy at the guidance of Dr. Sands. Her main goal is to maximize her nutritional and physical status and to remain in independent living for "as long as she can "; however, receptive to rehab vs long-term facility placement as indicated. Daughter verbalizing concerns of patient's ability to remain independent given progressive physical and cognitive decline. Patient with short-term memory issues since stroke in September 2017. Daughter inquiring about hospice, reviewed hospice philosophy and benefits. Reviewed the future role of hospice should patient's symptoms burden increases or in the setting of additional functional decline. * SYMPTOMS: = Dysphagia/odynophagia. Secondary to throat cancer status post radiation complicated by post radiation changes to include necrosis. Patient reports odynophagia is worsening, unable to tolerate any food consistency. Status post PEG tube placement today. Home regimen to include hydrocodone/APAP 7.5/325mg every 4 hours as needed and morphine ER 15 mg every 12 hours. Patient reports that home regimen was not effective, taking hydrocodone about 4 times per day. Home regimen total of 60 mg of oral morphine equivalent per day. She was started on methadone yesterday, dose adjusted to 5 mg twice daily given oral morphine daily equivalent of 60 mg. Hydrocodone/APAP was discontinued yesterday as it was not effective to control her pain. Patient was started on morphine liquid (Roxanol 20mg/ml) 10 mg every 4 hours as needed for moderate pain and 15 mg every 4 hours as needed for severe pain. In the past 24 hours, patient has received 1 dose of 10 mg and 2 doses of 15 mg with good effect. Has also received 1 dose of hydromorphone 1 mg IV for breakthrough pain. Total oral morphine equivalents in the past 24 hours of 60 mg. No further recommendations at this time. Methadone dose adequate at this time, patient and daughter were advised that it may take 3-5 days to full clinical effect. EKG 02/03/18 reviewed, QTc of 414. * Discussed with case making machine operator. Daughter considering discharge home with home health "nurse superintendent transportation" services. * Palliative care to provide assistance with completion of advance directives. Living will and designation of healthcare surrogate forms left with patient's daughter. * Palliative care will continue to follow-up for further clarifications of goals of care, symptom management recommendation and family support as patient' s clinical course continues to evolve. Time Spent Total Floor Time (mins): 38 (Total time to include review medical records, physical exam, goals of care conversation with patient and daughter, case discussion with case making machine operator.) >50% Time in Counseling or Coordination of Care: Yes (Total visit time = 38 minutes; > 50% spent counseling/coordinating care) Attestation Attestation: To help prompt me to consider important information that might be impacting today's encounter and assessment, information from prior notes written by myself or my colleagues may have been "brought forward" into today's note. My signature on this note, however, is an attestation that I personally performed the exam, history, and/or decision-making noted today, and, unless otherwise indicated, the interactions with patient, family, and staff as well as the review of records all occurred today. I also attest that the listed assessment and stated plan reflect my best clinical judgment today based on the combination of historical information, prior notes, and today's exam/ interactions. When time spent is documented, it refers only to time spent today by the signer, or if indicated, combined time spent today by collaborating physician/nurse practitioner.
[2018-02-04] MEDS ORDERED: Warfarin Consult Pharmacy OTHER PRN (15:25)
--- NOTE | 2018-02-04 16:11 | P.DIET ---
Nutritional Evaluation Type of nutrition evaluation: initial Nutrition consult regarding: Tube Feeding Nutrition screening: MDC (Tube feeding) Subjective Subjective Comments: Pt failure to thrive Objective - Diagnosis dysphagia, aspiration, recurrent head and neck CA - Objective Body Mass Index: 12.9 % IBW: 69 (IBW = 90lb) Body Weight Used for Calculations: IBW, Actual Energy Needs - Lower Range (kCal/kg): 40 (actual bw = 28.1kg) Energy Needs - Upper Range (kCal/kg): 45 Lower Limit kCal/kg (kCals): 1,125 Upper Limit kCal/kg (kCals): 1,265 Lower Limit Protein Factor (Grams per Kg): 1.2 (IBW) Upper Limit Protein Factor (Grams per Kg): 1.5 Lower Protein Needs (Protein): 49 Upper Protein Needs (Protein): 61 Dietitian Reviewed in Medical Record: Current diet, Curent medications, Intake & Output, Labs, Medical history Diet Order: NPO Objective Comments: PMH: anemia, CVA, HLD, HTN, osteoporosis, retina disorder, throat cancer Labs: K+3.3, Cr 0.44 Assessment Assessment: Pt consulted for TFing on 02/03, PEG placed today (02/04) awaiting TF recs to start. RD to recommend Jevity 1.5 @ 35mL/hr to provide 1260 kcal, 53.6g of protein, and 638mL of free water to best meet pts nutritional needs. ST notes reviewed, pt has trouble swallowing solid foods and liquids as well. Pt at risk for refeeding syndrome d/t being malnourished, monitor and obtain electrolytes blood work daily (K, PO4, Mg), provide thiamine daily x 5-7 days. On day 1, start TFing pt at 10mL trickle feeds and monitor for tolerance. If tolerated for 24 hours, on day 2, advance Jevity 1.5 to 25mL/hr. On the day 3, advance to 35mL/hr if pt is tolerating. Recommendations: 1. RD to recommend Jevity 1.5 @ 35mL/hr to best meet pts nutritional needs 2. Pt at risk for refeeding syndrome d/t being malnourished, monitor and obtain electrolytes blood work daily (K, PO4, Mg) 3. Provide thiamine daily x 5-7 days 4. On day 1 of feeding, start TFing pt at 10mL trickle feeds and monitor for tolerance. If tolerated for 24 hours, on day 2, advance Jevity 1.5 to 25mL/hr. On the day 3, advance to 35mL/hr if pt is tolerating Dietitian to Monitor: Lab values, Electrolytes, Intake & Output, Tube feeding tolerance, Weight change, Medical course
--- NOTE | 2018-02-04 16:12 | ECG ---
Date Performed: 02/03/2018 Time Performed: 21:34:30 PTAGE: 67 years EKG: Sinus rhythm Inferior/lateral ST-T changes are nonspecific Borderline ECG PREVIOUS TRACING : 09/29/2017 20.22 Compared to previous tracing, there has been increase in th e inferolateral Nonspecific ST segment changes. Clinical correlation is recommended DOCTOR: Liliana Rush Interpretating Date/Time 02/04/2018 16:12:22
[2018-02-04 20:48] LABS: Anion Gap 8 meq/L (5-15); Blood Urea Nitrogen 6 mg/dL (7-18); Calcium 8.5 mg/dL (8.5-10.1); Carbon Dioxide 31.8 meq/L (21.0-32.0); Chloride 98 meq/L (98-107); Glomerular Filtration Rate Greater Than 89 mL/min (>89); Glucose,Random 151 mg/dL (74-106); Sodium 138 meq/L (136-145)
[2018-02-05] MEDS: Potassium Chlor 20 mEq Premix 20 MEQ/100 ML PIGGYBACK IV.SIG SCH ×3 (00:08→18:12)
[2018-02-05] MEDS: Heparin - SQ 10,000 UNITS/ML Vial SQ SCH ×4 (00:09→21:27)
[2018-02-05] MEDS: Senna/Docusate Sodium 8.6/50 MG Tablet PO SCH ×3 (00:09→20:39)
[2018-02-05] MEDS: amLODIPine 5 MG Tablet PO SCH ×3 (00:10→20:38)
[2018-02-05] MEDS: Nystatin/Diphenhydramine/Lidocaine Mouthwash (Adult) 120 ML Botttle SWISH-SWAL SCH ×5 (00:11→21:26)
[2018-02-05] MEDS: Methadone 10 MG Tablet PO SCH ×3 (00:28→20:40)
[2018-02-05] MEDS: Morphine Sulfate Oral Liq 10 MG/0.5 ML Syringe PO PRN ×3 (04:55→15:39)
[2018-02-05] MEDS: Dextrose 5%/NaCl 0.45% Inj 1,000 ML IV.CONT SCH ×2 (06:00→15:46)
[2018-02-05 06:04] LABS: Baso % (Auto) 0.1 % (0.0-2.0); Eos % (Auto) 0.3 % (0.0-4.0); Hematocrit 33.3 % (35.0-46.0); Hemoglobin 11.4 gm/dL (11.6-15.3); Lymph # (Auto) 0.6 th/mm3 (1.0-4.8); Lymph % (Auto) 5.3 % (9.0-44.0); Mean Corpuscular HGB Conc 34.3 % (32.0-36.0); Mean Corpuscular Hemoglobin 33.7 pg (27.0-34.0); Mean Corpuscular Volume 98.3 fL (80.0-100.0); Mean Platelet Volume 7.5 fL (7.0-11.0); Mono # (Auto) 0.7 th/mm3 (0.0-0.9); Mono % (Auto) 5.9 % (0.0-8.0); Neut # (Auto) 10.2 th/mm3 (1.8-7.7); Neut % (Auto) 88.4 % (16.0-70.0); Platelet Count 269 th/mm3 (150-450); Red Blood Count 3.39 mil/mm3 (4.00-5.30); Red Cell Distribution Width 13.1 % (11.6-17.2); White Blood Count 11.6 th/mm3 (4.0-11.0)
[2018-02-05 06:11] LABS: INR 1.1 Ratio; Prothrombin Time 11.2 sec (9.8-11.6)
[2018-02-05 06:23] LABS: Anion Gap 7 meq/L (5-15); Blood Urea Nitrogen 7 mg/dL (7-18); Calcium 8.7 mg/dL (8.5-10.1); Carbon Dioxide 32.4 meq/L (21.0-32.0); Chloride 99 meq/L (98-107); Glomerular Filtration Rate Greater Than 89 mL/min (>89); Glucose,Random 97 mg/dL (74-106); Magnesium 1.9 mg/dL (1.5-2.5); Phosphorus 2.4 mg/dL (2.5-4.9); Sodium 138 meq/L (136-145)
[2018-02-05] MEDS: HYDROmorphone PF Inj 2 MG/ML Vial IV.PUSH PRN ×2 (09:42→16:36)
--- NOTE | 2018-02-05 10:50 | P.PNGI ---
Subjective Interval history: Patient up to bedside commode Return to bed and denies discomfort PEG tube in place, dressing dry and intact Physical Exam Vital signs: Vital Signs 02/04/18 11:25 02/04/18 12:00 02/04/18 16:00 Temperature 98.8 F Pulse Rate 89 92 H 74 Respiratory Rate 16 Blood Pressure 122/68 Pulse Oximetry 92 L 02/04/18 17:28 02/04/18 20:00 02/04/18 21:00 Temperature 98.7 F 97.9 F Pulse Rate 87 85 89 Respiratory Rate 16 18 Blood Pressure 117/66 120/60 Pulse Oximetry 94 L 94 L 02/05/18 00:00 02/05/18 01:00 02/05/18 04:00 Temperature Pulse Rate 89 89 89 Respiratory Rate 16 16 Blood Pressure Pulse Oximetry 95 96 02/05/18 05:00 02/05/18 06:05 Temperature Pulse Rate 84 Respiratory Rate 16 Blood Pressure Pulse Oximetry Intake & Output 02/04/18 02/05/18 02/05/18 18:59 06:59 18:59 Intake Total 200 / 200 1100 / 1100 240 / 240 Output Total 400 / 400 100 / 100 Balance 200 / 200 700 / 700 140 / 140 Weight 28.1 kg 30.1 kg Intake: IV 1100 / 1100 D5W/1/2 NS Inj 1,000 ML @ 100 1000 / 1000 mls/hr IV.CONT .Q10H [facility] Rx#: [id number] KCl 20 mEq Premix Inj 20 meq In 100 / 100 100 ml @ 50 mls/hr IV.SIG Q2H [facility] Rx#:[id number] Oral 240 / 240 Anesthesia Amount 200 / 200 Output: Urine 400 / 400 100 / 100 Other: # Voids 1 2 Date of Last Bowel Movement 02/02/18 02/04/18 # Bowel Movements 1 Weight On Admission 28.1 kg - Constitutional no acute distress - Routine HEENT Exam Head: Present: normocephalic ENT: Present: mucous membranes moist - Routine Respiratory Exam Present: CTA bilaterally. Absent: accessory muscle use - Routine Abdominal Exam Present: soft, normoactive bowel sounds. Absent: tenderness, distended, guarding, firm Comments: PEG tube site without any drainage or signs of infection - Routine Extremities Exam Present: full ROM. Absent: edema - Routine Skin Exam Present: dry, warm - Routine Neurological Exam Present: alert, oriented X3 - Routine Psychiatric Exam Present: normal affect, cooperative Results - Labs CBC & Chem 7: 02/05/18 05:00 02/05/18 05:00 Laboratory Results - last 24 hr 02/04/18 02/04/18 02/05/18 08:18 20:09 05:00 WBC RBC Hgb Hct MCV MCH MCHC RDW Plt Count MPV Neut % (Auto) Lymph % (Auto) Kimble % (Auto) Eos % (Auto) Baso % (Auto) Neut # (Auto) Lymph # (Auto) Kimble # (Auto) Eos # (Auto) Baso # (Auto) WBC Differential Differential Comment PT 11.2 INR 1.1 Sodium 138 Potassium 3.0 L Chloride 98 Carbon Dioxide 31.8 Anion Gap 8 BUN 6 L Creatinine 0.41 L Estimated GFR Greater than 89 Random Glucose 151 H Calcium 8.5 Phosphorus Magnesium 1.9 02/05/18 02/05/18 05:00 05:00 WBC 11.6 H RBC 3.39 L Hgb 11.4 L Hct 33.3 L MCV 98.3 MCH 33.7 MCHC 34.3 RDW 13.1 Plt Count 269 MPV 7.5 Neut % (Auto) 88.4 H Lymph % (Auto) 5.3 L Kimble % (Auto) 5.9 Eos % (Auto) 0.3 Baso % (Auto) 0.1 Neut # (Auto) 10.2 H Lymph # (Auto) 0.6 L Kimble # (Auto) 0.7 Eos # (Auto) 0.0 Baso # (Auto) 0.0 WBC Differential . Differential Comment Auto diff final PT INR Sodium 138 Potassium 3.0 L Chloride 99 Carbon Dioxide 32.4 H Anion Gap 7 BUN 7 Creatinine 0.30 L Estimated GFR Greater than 89 Random Glucose 97 Calcium 8.7 Phosphorus 2.4 L Magnesium 1.9 Assessment and Plan (1) Dysphagia Status: Acute Code(s): R13.10 - Dysphagia, unspecified - Plan Dysphagia Patient admitted for complaints of dysphagia and odynophagia post radiation treatment for squamous cell carcinoma of the throat. Patient developed dysphagia post radiation treatments in September 2017. Our service has been consulted to evaluate patient for PEG tube placement. 02/05/2018 Dysphagia-post radiation treatment for squamous cell carcinoma of the throat Patient post PEG tube placement PEG tube site without drainage or any signs of infection. Dressing clean dry and intact. Plan -N.p.o. -Tube feedings as per dietary recommendation -Jevity 1.5 at 35 mL's per hour -50 cc H2O flushes every 4 to 6 hours -Flush after feeding -Abdominal binder if necessary -Clamp PEG tube after flushes and use -Supportive care This patient has been seen by myself and Dr. Mcnamara and this note is written on his behalf - Attending Attestation Dr. Mcnamara
--- NOTE | 2018-02-05 11:07 | FL ---
EXAM DATE: 02/05/2018 10:44 AM EST AGE/SEX: 67 years / Female INDICATIONS: Dysphagia. CLINICAL DATA: This is the patient's initial encounter. Patient reports that signs and symptoms have been present for 1 day and indicates a pain score of 0/10. MEDICAL/SURGICAL HISTORY: . Hypertension. Osteoporosis. Throat cancer. . [id number]. COMPARISON: No prior exams available for comparison. FLUORO TIME: 0.8 IMAGE COUNT: 11 FINDINGS: A modified barium swallow was performed with speech pathology. Patient was given a variety of liquids to swallow. For a full detailed report, see report by the speech pathologist. CONCLUSION: No aspiration visualized. Electronically signed by: Cris Morrow MD 02/05/2018 11:06 AM EST
--- NOTE | 2018-02-05 11:38 | P.PNIM ---
Subjective Interval history: The patient was feeling much better. Her pain was controlled. She was having some discomfort at the site of the feeding tube. Her family was at the bedside. They were hoping that the patient could eat some soft foods. Discussed with nursing. Physical Exam Vital signs: Vital Signs 02/04/18 12:00 02/04/18 16:00 02/04/18 17:28 Temperature 98.7 F Pulse Rate 92 H 74 87 Respiratory Rate 16 Blood Pressure 117/66 Pulse Oximetry 94 L 02/04/18 20:00 02/04/18 21:00 02/05/18 00:00 Temperature 97.9 F Pulse Rate 85 89 89 Respiratory Rate 18 16 Blood Pressure 120/60 Pulse Oximetry 94 L 95 02/05/18 01:00 02/05/18 04:00 02/05/18 05:00 Temperature Pulse Rate 89 89 84 Respiratory Rate 16 Blood Pressure Pulse Oximetry 96 02/05/18 06:05 02/05/18 08:00 02/05/18 09:00 Temperature 99.8 F H Pulse Rate 83 88 Respiratory Rate 16 16 Blood Pressure 128/58 L Pulse Oximetry 98 Intake & Output 02/04/18 02/05/18 02/05/18 18:59 06:59 18:59 Intake Total 200 / 200 1100 / 1100 240 / 240 Output Total 400 / 400 100 / 100 Balance 200 / 200 700 / 700 140 / 140 Weight 28.1 kg 30.1 kg Intake: IV 1100 / 1100 D5W/1/2 NS Inj 1,000 ML @ 100 1000 / 1000 mls/hr IV.CONT .Q10H ANAIS Rx#: [id number] KCl 20 mEq Premix Inj 20 meq In 100 / 100 100 ml @ 50 mls/hr IV.SIG Q2H ANAIS Rx#:[id number] Oral 240 / 240 Anesthesia Amount 200 / 200 Output: Urine 400 / 400 100 / 100 Other: # Voids 1 2 Date of Last Bowel Movement 02/02/18 02/04/18 02/04/18 # Bowel Movements 1 Weight On Admission 28.1 kg Narrative: General: NAD, cachectic. HEENT: Tenderness to palpation on left side of jaw and anterior neck. Oral thrush noted. Lungs: CTAB. Cardiac: RRR. No M/R/G. GI: Thins abdomen. Soft. PEG tube in place. Mild tenderness to palpation around the PEG tube site. Extremities: No edema. Neuro: Awake and alert. Moves upper and lower extremities. Psych: Mood and affect appropriate. Results - Labs CBC & Chem 7: 02/05/18 05:00 02/05/18 05:00 Laboratory Results - last 24 hr 02/04/18 02/04/18 02/05/18 08:18 20:09 05:00 WBC RBC Hgb Hct MCV MCH MCHC RDW Plt Count MPV Neut % (Auto) Lymph % (Auto) [place] % (Auto) Eos % (Auto) Baso % (Auto) Neut # (Auto) Lymph # (Auto) [place] # (Auto) Eos # (Auto) Baso # (Auto) WBC Differential Differential Comment PT 11.2 INR 1.1 Sodium 138 Potassium 3.0 L Chloride 98 Carbon Dioxide 31.8 Anion Gap 8 BUN 6 L Creatinine 0.41 L Estimated GFR Greater than 89 Random Glucose 151 H Calcium 8.5 Phosphorus Magnesium 1.9 02/05/18 02/05/18 05:00 05:00 WBC 11.6 H RBC 3.39 L Hgb 11.4 L Hct 33.3 L MCV 98.3 MCH 33.7 MCHC 34.3 RDW 13.1 Plt Count 269 MPV 7.5 Neut % (Auto) 88.4 H Lymph % (Auto) 5.3 L [place] % (Auto) 5.9 Eos % (Auto) 0.3 Baso % (Auto) 0.1 Neut # (Auto) 10.2 H Lymph # (Auto) 0.6 L [place] # (Auto) 0.7 Eos # (Auto) 0.0 Baso # (Auto) 0.0 WBC Differential . Differential Comment Auto diff final PT INR Sodium 138 Potassium 3.0 L Chloride 99 Carbon Dioxide 32.4 H Anion Gap 7 BUN 7 Creatinine 0.30 L Estimated GFR Greater than 89 Random Glucose 97 Calcium 8.7 Phosphorus 2.4 L Magnesium 1.9 - Imaging Impressions Videofluoroscopic Swallow 02/05/18 00:00 CONCLUSION: No aspiration visualized. Assessment and Plan - Plan Failure to thrive The pt has squamous cell carcinoma of the throat. She has significant dysphagia. She was referred to the hospital by her oncologist. She was started on immunotherapy on 02/02. GI consult appreciated. S/p PEG tube placement. IR consulted and port has been placed. Having left sided facial swelling and pain. -speech therapy following. On soft diet with tube feeds. Increase tube feeds in AM. -Palliative care consult appreciated. Continue pain control with liquid morphine , methadone and IV Dilaudid for breakthrough pain. -Magic mouthwash. -oncology consult requested. Continue immunotherapy as planned. Cachexia/ Malnourishment The pt has a BMI of 13, indicating severe malnourishment. -tube feeds. Corrections Specialist consult appreciated. CVA Has vision loss and memory problems. On Coumadin. -hold Coumadin and follow INR. -PT eval. Hypokalemia Persistent. -replete with IV KCl and monitor. PPx: Heparin
[2018-02-05] MEDS ORDERED: Sodium Chloride 0.9% 2 ML Flush PRN IV.FLUSH (14:25)
[2018-02-05] MEDS: Sodium Chloride 0.9% 2 ML Flush BID IV.FLUSH SCH (20:38)
[2018-02-06] MEDS: Morphine Sulfate Oral Liq 10 MG/0.5 ML Syringe PO PRN ×2 (03:24→07:44)
[2018-02-06] MEDS: Heparin - SQ 10,000 UNITS/ML Vial SQ SCH ×3 (05:27→22:25)
[2018-02-06 06:35] LABS: Baso % (Auto) 0.1 % (0.0-2.0); Eos # (Auto) 0.1 th/mm3 (0.0-0.4); Eos % (Auto) 0.8 % (0.0-4.0); Hematocrit 31.4 % (35.0-46.0); Hemoglobin 10.8 gm/dL (11.6-15.3); Lymph # (Auto) 0.5 th/mm3 (1.0-4.8); Lymph % (Auto) 5.3 % (9.0-44.0); Mean Corpuscular HGB Conc 34.5 % (32.0-36.0); Mean Corpuscular Hemoglobin 34.1 pg (27.0-34.0); Mean Corpuscular Volume 98.8 fL (80.0-100.0); Mean Platelet Volume 7.4 fL (7.0-11.0); Mono # (Auto) 0.8 th/mm3 (0.0-0.9); Mono % (Auto) 7.9 % (0.0-8.0); Neut # (Auto) 8.5 th/mm3 (1.8-7.7); Neut % (Auto) 85.9 % (16.0-70.0); Platelet Count 252 th/mm3 (150-450); Red Blood Count 3.17 mil/mm3 (4.00-5.30); White Blood Count 9.9 th/mm3 (4.0-11.0)
[2018-02-06 06:56] LABS: Anion Gap 9 meq/L (5-15); Blood Urea Nitrogen 8 mg/dL (7-18); Calcium 8.9 mg/dL (8.5-10.1); Carbon Dioxide 30.4 meq/L (21.0-32.0); Chloride 97 meq/L (98-107); Glomerular Filtration Rate Greater Than 89 mL/min (>89); Glucose,Random 107 mg/dL (74-106); Phosphorus 2.7 mg/dL (2.5-4.9); Potassium 3.5 meq/L (3.5-5.1); Sodium 136 meq/L (136-145)
[2018-02-06 07:09] LABS: INR 1.4 Ratio
[2018-02-06] MEDS: Methadone 10 MG Tablet PO SCH ×2 (08:06→20:33)
[2018-02-06] MEDS: Sodium Chloride 0.9% 2 ML Flush BID IV.FLUSH SCH ×2 (08:07→20:41)
[2018-02-06] MEDS: amLODIPine 5 MG Tablet PO SCH (08:07)
[2018-02-06] MEDS: Nystatin/Diphenhydramine/Lidocaine Mouthwash (Adult) 120 ML Botttle SWISH-SWAL SCH ×4 (08:07→20:41)
[2018-02-06] MEDS: Senna/Docusate Sodium 8.6/50 MG Tablet PO SCH ×2 (08:07→20:33)
[2018-02-06] MEDS ORDERED: Potassium Chlor 20 mEq Premix 20 MEQ/100 ML PIGGYBACK IV.SIG ONE (09:57)
[2018-02-06] MEDS ORDERED: Morphine Sulfate Oral Liq 10 MG/0.5 ML Syringe PO SCH (10:00)
[2018-02-06] MEDS ORDERED: Melatonin 5 MG Tablet PO PRN (10:06)
--- NOTE | 2018-02-06 10:07 | P.PNIM ---
Subjective Interval history: The patient was resting comfortably in bed. Her son was at the bedside. The patient's family was interested in possible SENIOR CARE placement following discharge. They were interested in having the patient's pain medication scheduled. The patient said that she was tolerating her tube feeds. Discussed with nursing. Physical Exam Vital signs: Vital Signs 02/05/18 11:00 02/05/18 15:36 02/05/18 17:00 Temperature Pulse Rate 76 88 99 H Respiratory Rate 16 Blood Pressure 118/64 Pulse Oximetry 97 02/05/18 20:00 02/06/18 00:00 02/06/18 03:43 Temperature 98.5 F 98.8 F 98.7 F Pulse Rate 69 73 92 H Respiratory Rate 18 Blood Pressure 130/66 104/57 L 117/48 L Pulse Oximetry 95 93 L 93 L 02/06/18 04:00 02/06/18 08:00 Temperature 100.0 F H Pulse Rate 72 81 Respiratory Rate 16 Blood Pressure 115/55 L Pulse Oximetry 94 L Intake & Output 02/05/18 02/06/18 02/06/18 18:59 06:59 18:59 Intake Total 740 / 740 1840 / 1840 Output Total 100 / 100 750 / 750 Balance 640 / 640 1090 / 1090 Weight 27.4 kg Intake: IV 500 / 500 100 / 100 D5W/1/2 NS Inj 1,000 ML @ 100 300 / 300 mls/hr IV.CONT .Q10H ANAIS Rx#: [id number] KCl 20 mEq Premix Inj 20 meq In 100 / 100 100 ml @ 50 mls/hr IV.SIG Q2H ANAIS Rx#:[id number] Oral 240 / 240 720 / 720 Tube Feeding 58 / 58 Tube Irrigant 862 / 862 Water Bolus Amount 100 / 100 Output: Urine 100 / 100 750 / 750 Other: # Voids 4 Date of Last Bowel Movement 02/04/18 02/04/18 02/04/18 Narrative: General: NAD, cachectic. HEENT: Swelling on left side of face and neck is improved. Oral thrush noted. Lungs: CTAB. Cardiac: RRR. No M/R/G. GI: Thins abdomen. Soft. Nontender. PEG tube in place. Extremities: No edema. Neuro: Awake and alert. Moves upper and lower extremities. Psych: Mood and affect appropriate. Results - Labs CBC & Chem 7: 02/06/18 05:40 02/06/18 05:40 Laboratory Results - last 24 hr 02/06/18 02/06/18 02/06/18 05:40 05:40 05:40 WBC 9.9 RBC 3.17 L Hgb 10.8 L Hct 31.4 L MCV 98.8 MCH 34.1 H MCHC 34.5 RDW 13.0 Plt Count 252 MPV 7.4 Neut % (Auto) 85.9 H Lymph % (Auto) 5.3 L [place] % (Auto) 7.9 Eos % (Auto) 0.8 Baso % (Auto) 0.1 Neut # (Auto) 8.5 H Lymph # (Auto) 0.5 L [place] # (Auto) 0.8 Eos # (Auto) 0.1 Baso # (Auto) 0.0 WBC Differential . Differential Comment Auto diff final PT 14.0 H INR 1.4 Sodium 136 Potassium 3.5 Chloride 97 L Carbon Dioxide 30.4 Anion Gap 9 BUN 8 Creatinine 0.30 L Estimated GFR Greater than 89 Random Glucose 107 H Calcium 8.9 Phosphorus 2.7 Magnesium 2.0 - Imaging Impressions Videofluoroscopic Swallow 02/05/18 00:00 CONCLUSION: No aspiration visualized. Assessment and Plan - Plan Failure to thrive The pt has squamous cell carcinoma of the throat. She has significant dysphagia. She was referred to the hospital by her oncologist. She was started on immunotherapy on 02/02. GI consult appreciated. S/p PEG tube placement. IR consulted and port has been placed. Having left sided facial swelling and pain. -speech therapy following. On soft diet with tube feeds. Increase tube feeds in AM. -Palliative care consult appreciated. Continue pain control with liquid morphine , methadone and IV Dilaudid for breakthrough pain. Made PO morphine standing per family request, to hold for sedation. -Magic mouthwash. -oncology consult requested. Continue immunotherapy as planned. Cachexia/ Malnourishment The pt has a BMI of 13, indicating severe malnourishment. -tube feeds. [employer] consult appreciated. Increase rate to 25 ml/hr today, 35 ml/hr tomorrow. CVA Has vision loss and memory problems. On Coumadin. -resume Coumadin and follow INR. -PT eval. Hypokalemia Persistent. -replete with IV KCl and monitor. Improved. Insomnia The pt states she has not been sleeping well. -melatonin. PPx: Heparin Discharge Planning: Await tube feeds to reach goal, may need SENIOR CARE placement
[2018-02-06] MEDS: Acetaminophen-HYDROcodone 325/7.5 Liq 15 ML UDC G-TUBE SCH ×3 (12:26→19:51)
--- NOTE | 2018-02-06 15:51 | P.DIET ---
Nutritional Evaluation Type of nutrition evaluation: initial Nutrition consult regarding: Tube Feeding Nutrition screening: Weight Loss > 10 lbs, [facility] (Tube feeding) Subjective Subjective Comments: Pt failure to thrive Objective - Diagnosis dysphagia, aspiration, recurrent head and neck CA - Objective % IBW: 69 (IBW = 90lb) Body Weight Used for Calculations: IBW, Actual Energy Needs - Lower Range (kCal/kg): 40 (actual bw = 28.1kg) Energy Needs - Upper Range (kCal/kg): 45 Lower Limit kCal/kg (kCals): 1,125 Upper Limit kCal/kg (kCals): 1,265 Lower Limit Protein Factor (Grams per Kg): 1.2 (IBW) Upper Limit Protein Factor (Grams per Kg): 1.5 Lower Protein Needs (Protein): 49 Upper Protein Needs (Protein): 61 Dietitian Reviewed in Medical Record: Current diet, Curent medications, Intake & Output, Labs, Medical history Diet Order: TF and mech soft pleasure feeds Speech Therapy Recommendations: Yes (mech soft tray w/ thin liquids (pleasure feeds)) Objective Comments: PMH: anemia, CVA, HLD, HTN, osteoporosis, retina disorder, throat cancer Labs: Cr 0.30, random glucose 107 Feeding - Current Tube Feeding Tube Feeding Product: Jevity 1.5 Tube Feeding Rate: 35 Assessment Assessment: [facility] r/t reported unplanned wt loss. Pt tolerating Jevity 1.5 @ 30mL well today. ST notes reviewed, pt is given pleasure feeds at each meal (mech soft tray, thin liquids). Pt has been eating 25% for most of the trays. Pts family interested in [facility] placement after d/c per DO note. Wts noted, CBW = 27.4, slight wt loss. Pt receiving thiamine and electrolyte labs WNL. Continue to monitor for TF and PO intake/tolerance. Labs reviewed, dietitian following. Brought forward: Pt at risk for refeeding syndrome d/t being malnourished, monitor and obtain electrolytes blood work daily (K, PO4, Mg), provide thiamine daily x 5-7 days. On day 1, start TFing pt at 10mL trickle feeds and monitor for tolerance. If tolerated for 24 hours, on day 2, advance Jevity 1.5 to 25mL/ hr. On the day 3, advance to 35mL/hr if pt is tolerating. Recommendations: 1. RD to recommend Jevity 1.5 @ 35mL/hr to best meet pts nutritional needs 2. Pt at risk for refeeding syndrome d/t being malnourished, monitor and obtain electrolytes blood work daily (K, PO4, Mg) 3. Provide thiamine daily x 5-7 days 4. On day 1 of feeding, start TFing pt at 10mL trickle feeds and monitor for tolerance. If tolerated for 24 hours, on day 2, advance Jevity 1.5 to 25mL/hr. On the day 3, advance to 35mL/hr if pt is tolerating 5. Continue to monitor for TF and PO intake/tolerance Dietitian to Monitor: Lab values, Electrolytes, Intake & Output, Diet tolerance , Tube feeding tolerance, Weight change, PO Intake, Medical course
[2018-02-06] MEDS: HYDROmorphone PF Inj 2 MG/ML Vial IV.PUSH PRN (17:36)
[2018-02-07] MEDS: Acetaminophen-HYDROcodone 325/7.5 Liq 15 ML UDC G-TUBE SCH ×6 (00:22→21:11)
[2018-02-07] MEDS: HYDROmorphone PF Inj 2 MG/ML Vial IV.PUSH PRN ×2 (03:15→17:27)
[2018-02-07 05:43] LABS: INR 1.8 Ratio; Prothrombin Time 18.3 sec (9.8-11.6)
[2018-02-07] MEDS: Heparin - SQ 10,000 UNITS/ML Vial SQ SCH ×3 (06:07→21:13)
[2018-02-07] MEDS: Senna/Docusate Sodium 8.6/50 MG Tablet PO SCH ×2 (08:46→21:13)
[2018-02-07] MEDS: Methadone 10 MG Tablet PO SCH ×2 (08:47→21:10)
[2018-02-07] MEDS: amLODIPine 5 MG Tablet PO SCH (08:47)
[2018-02-07] MEDS: Nystatin/Diphenhydramine/Lidocaine Mouthwash (Adult) 120 ML Botttle SWISH-SWAL SCH ×4 (08:48→21:09)
[2018-02-07] MEDS: Sodium Chloride 0.9% 2 ML Flush BID IV.FLUSH SCH ×2 (08:49→21:13)
--- NOTE | 2018-02-07 14:06 | P.PNIM ---
Subjective Interval history: The patient was feeling well. She was sitting up in bed. Her family was at the bedside. They were wondering whether the patient is capable of going home versus requiring SNF placement. The patient is tolerating her tube feeds. Her pain is controlled. Discussed with nursing. Physical Exam Vital signs: Vital Signs 02/06/18 15:26 02/06/18 17:00 02/06/18 19:05 Temperature 98.5 F Pulse Rate 67 68 76 Respiratory Rate 16 Blood Pressure 139/62 Pulse Oximetry 94 L 02/06/18 19:37 02/06/18 20:00 02/06/18 21:01 Temperature 99.2 F Pulse Rate 74 74 72 Respiratory Rate 16 Blood Pressure 107/51 L Pulse Oximetry 92 L 02/06/18 22:05 02/06/18 23:00 02/07/18 00:00 Temperature 99.2 F Pulse Rate 88 68 70 Respiratory Rate 18 Blood Pressure 133/66 Pulse Oximetry 99 02/07/18 00:06 02/07/18 01:01 02/07/18 02:05 Temperature Pulse Rate 78 69 91 H Respiratory Rate Blood Pressure Pulse Oximetry 02/07/18 02:56 02/07/18 04:01 02/07/18 04:18 Temperature 99.1 F Pulse Rate 70 67 86 Respiratory Rate 16 Blood Pressure 138/68 Pulse Oximetry 94 L 02/07/18 05:02 02/07/18 06:00 02/07/18 08:00 Temperature 98.7 F Pulse Rate 62 70 Respiratory Rate 18 Blood Pressure 116/72 Pulse Oximetry 02/07/18 10:00 Temperature Pulse Rate 70 Respiratory Rate Blood Pressure Pulse Oximetry Intake & Output 02/06/18 02/07/18 02/07/18 18:59 06:59 18:59 Intake Total 100 / 100 1950 / 1950 Output Total 300 / 300 2 / 2 Balance 100 / 100 1650 / 1650 -2 / -2 Weight 27.2 kg Intake: IV 100 / 100 KCl 20 mEq Premix Inj 20 meq In 100 / 100 100 ml @ 50 mls/hr IV.SIG ONCE ONE Rx#:[id number] Oral 480 / 480 Tube Feeding 270 / 270 Tube Irrigant 1050 / 1050 Water Bolus Amount 150 / 150 Output: Urine 300 / 300 / Stool Other: # Voids 4 Date of Last Bowel Movement 02/04/18 02/04/18 02/07/18 # Bowel Movements 1 Narrative: General: NAD, cachectic. HEENT: Swelling on left side of face and neck is improved. Oral thrush noted. Lungs: CTAB. Cardiac: RRR. No M/R/G. GI: Thin abdomen. Soft. Nontender. PEG tube in place. Extremities: No edema. Neuro: Awake and alert. Moves upper and lower extremities. Psych: Mood and affect appropriate. Results - Labs CBC & Chem 7: 02/06/18 05:40 02/06/18 05:40 Laboratory Results - last 24 hr 02/07/18 04:20 PT 18.3 H INR 1.8 Assessment and Plan - Plan Failure to thrive The pt has squamous cell carcinoma of the throat. She has significant dysphagia. She was referred to the hospital by her oncologist. She was started on immunotherapy on 02/02. GI consult appreciated. S/p PEG tube placement. IR consulted and port has been placed. Having left sided facial swelling and pain. -speech therapy following. On soft diet with tube feeds. Increase tube feeds in AM. -Palliative care consult appreciated. Continue pain control with liquid hydrocodone, methadone and IV Dilaudid for breakthrough pain. -Magic mouthwash. -oncology consult requested. Continue immunotherapy as planned. Cachexia/ Malnourishment The pt has a BMI of 13, indicating severe malnourishment. -tube feeds. [employer] Repairer consult appreciated. Increase rate to 35 ml/hr. Reconsult dietitian for bolus feeding recommendations. CVA Has vision loss and memory problems. On Coumadin. -Continue Coumadin and follow INR. -PT eval. Hypokalemia Persistent. -repleted with IV KCl. -Monitor. Insomnia The pt states she has not been sleeping well. -melatonin as needed. PPx: Heparin Discharge Planning: Await tube feeds to reach goal and then d/c to SNF vs. HHC in 1-2 days
--- NOTE | 2018-02-07 15:04 | P.DIET ---
Nutritional Evaluation Type of nutrition evaluation: follow-up Nutrition consult regarding: Tube Feeding Nutrition screening: Weight Loss > 10 lbs, [facility] (Tube feeding) Screening comments: 02/07/18 [facility] TF'ing, bolus feeding Recs needed Subjective Barriers to Nutrition: Swallowing problem Subjective Comments: 75% po for breakfast today Objective - Diagnosis dysphagia, aspiration, recurrent head and neck CA - Objective % IBW: 69 (IBW = 90lb) Body Weight Used for Calculations: IBW, Actual Energy Needs - Lower Range (kCal/kg): 40 (actual bw = 28.1kg) Energy Needs - Upper Range (kCal/kg): 45 Lower Limit kCal/kg (kCals): 1,125 Upper Limit kCal/kg (kCals): 1,265 Lower Limit Protein Factor (Grams per Kg): 1.2 (IBW) Upper Limit Protein Factor (Grams per Kg): 1.5 Lower Protein Needs (Protein): 49 Upper Protein Needs (Protein): 61 Fluid Factor (ml/kg): 40 Estimated Fluid Needs (ml): 1,124 Dietitian Reviewed in Medical Record: Current diet, Curent medications, Intake & Output, Labs, Medical history Diet Order: TF Jevity 1.5 @ goal rate 35ml/hr and mech soft Oral Diet Intake Amount: Fair 50-75% Speech Therapy Recommendations: Yes (mech soft tray w/ thin liquids ) Objective Comments: PMH: anemia, CVA, HLD, HTN, osteoporosis, retina disorder, throat cancer Meds include: Lipitor, Zofran, Norvasc, Coumadin, Magic Mouthwash LBM 02/07/18 Feeding - Current Tube Feeding Tube Feeding Product: Jevity 1.5 Tube Feeding Rate: 25 Current kCals Provided by Tube Feedin Current Protein Provided by Tube Feeding (gPRO): 38 Current Free H2O Provided (m/l): 456 Assessment Assessment: Pt continues at nutritional risk r/t need for TF'ing. Pt tolerating TF'ing as above. For continuous TF'ing, Rec goal rate @ 35ml/hr to offer 1260 kcal, 54g protein and 638ml free water. For bolus feedings Rec Jevity 1.5 w/1-can(240ml) at 8am, 1pm, 5pm and 0.5-can(120ml)at HS. Rec 30ml free water flush before and after each bolus feeding. Pt will need an additional 245ml free water daily to meet hydration needs. Continue to monitor for Risk of Refeeding Syndrome. Labs/ electrolytes reviewed. Send Ensure TID(= 240 kcal and 9g protein per serving). Wt changes noted. Recommendations: 1. For continuous TF'ing, Rec goal rate @ 35ml/hr 2. For bolus feedings Rec Jevity 1.5 w/1-can(240ml)at 8am, 1pm, 5pm and 0.5-can( 120ml)at HS 3. Rec 30ml free water flush before and after each bolus feeding 4. Pt will need an additional 245ml free water daily to meet hydration needs 5. Continue to monitor for Risk of Refeeding Syndrome 6. Send Ensure TID Dietitian to Monitor: Lab values, Electrolytes, Supplement acceptance, Intake & Output, Diet tolerance, Tube feeding tolerance, Weight change, PO Intake, Swallow recommendations, Medical course
--- NOTE | 2018-02-07 16:07 | P.PNPAL ---
Reason for Visit Reason for visit: a. To assist with evaluation and management of symptoms including: Pain. b. To assist medical decision maker(s) with: better understanding of current medical conditions; weighing benefits/burdens of medical treatment options; making medical treatment decisions. Subjective Subjective/Interval History: Palliative care follow-up for further clarifications of goals of care, assistance with symptom management and family support. Patient seen in her room sitting up in recliner chair in no acute distress. Endorsing pain to left side of her jaw and throat. Pain described as throbbing, 4 out of 10. Exacerbated by swallowing and alleviated by pain medication. Patient is status post PEG tube placement on Wednesday, currently tolerating tube feedings. Being followed by speech therapy, on mechanical soft diet as tolerated. Over the weekend, morphine liquid was discontinue and home regimen of hydrocodone/apap was reinstated as per family's request. Patient reports that her pain is under control. Patient afebrile, stable hemodynamically. No acute events overnight. No family at bedside during my visit. Dual visit with palliative care social research assistant Shanita Hendrix, offered assistance with completion of advance directives. Patient requesting to wait until her daughter Ceci is present. Palliative care return to patient's room by daughter was now they are. Palliative care to follow-up tomorrow. Advance Directives Living Will: Never completed Health Care Surrogate: Never completed Durable Power of Animal Care Specialist: Never completed Objective Vital Signs: Vital Signs 02/06/18 17:00 02/06/18 19:05 02/06/18 19:37 Temperature 99.2 F Pulse Rate 68 76 74 Respiratory Rate 16 Blood Pressure 107/51 L Pulse Oximetry 92 L 02/06/18 20:00 02/06/18 21:01 02/06/18 22:05 Temperature Pulse Rate 74 72 88 Respiratory Rate Blood Pressure Pulse Oximetry 02/06/18 23:00 02/07/18 00:00 02/07/18 00:06 Temperature 99.2 F Pulse Rate 68 70 78 Respiratory Rate 18 Blood Pressure 133/66 Pulse Oximetry 99 02/07/18 01:01 02/07/18 02:05 02/07/18 02:56 Temperature Pulse Rate 69 91 H 70 Respiratory Rate Blood Pressure Pulse Oximetry 02/07/18 04:01 02/07/18 04:18 02/07/18 05:02 Temperature 99.1 F Pulse Rate 67 86 62 Respiratory Rate 16 Blood Pressure 138/68 Pulse Oximetry 94 L 02/07/18 06:00 02/07/18 08:00 02/07/18 10:00 Temperature 98.7 F Pulse Rate 70 70 Respiratory Rate 18 Blood Pressure 116/72 Pulse Oximetry Intake & Output 02/06/18 02/07/18 02/07/18 18:59 06:59 18:59 Intake Total 100 / 100 1950 / 1950 Output Total 300 / 300 2 / 2 Balance 100 / 100 1650 / 1650 -2 / -2 Weight 27.2 kg Intake: IV 100 / 100 KCl 20 mEq Premix Inj 20 meq In 100 / 100 100 ml @ 50 mls/hr IV.SIG ONCE ONE Rx#:[id number] Oral 480 / 480 Tube Feeding 270 / 270 Tube Irrigant 1050 / 1050 Water Bolus Amount 150 / 150 Output: Urine 300 / 300 Stool Other: # Voids 4 Date of Last Bowel Movement 02/04/18 02/04/18 02/07/18 # Bowel Movements 1 Physical Exam: CONSTITUTIONAL/GENERAL: Cachectic female sitting up in bed in no acute distress. TUBES/LINES/DRAINS: PIV's, PEG tube placement. SKIN: Pale. No jaundice, rashes, or lesions. No wounds seen anteriorly. Skin temperature appropriate. Not diaphoretic. HEAD: Atraumatic. Normocephalic. EYES: Pupils equal and round and reactive. Extraocular motions intact. No scleral icterus. No injection or drainage. ENT: Hearing grossly normal. Nose without bleeding or purulent drainage. Moist oral mucosa. Edema to left side of the jaw, tender to touch. NECK: Trachea midline. CARDIOVASCULAR: Regular rate and rhythm. Peripheral pulses symmetric. RESPIRATORY/CHEST: Symmetric, unlabored respirations. Clear to auscultation. Breath sounds equal bilaterally. No wheezes, rales, or rhonchi. GASTROINTESTINAL: Abdomen soft, non-tender, nondistended. No hepato-splenomegaly , or palpable masses. No guarding. Bowel sounds present. GENITOURINARY: Without palpable bladder distension. MUSCULOSKELETAL: Extremities without clubbing, cyanosis, or edema. No mottling or clubbing. Muscle atrophy to all 4 extremities. NEUROLOGICAL: Awake and alert. Motor and sensory grossly within normal limits. Follows commands. Cognitively sharp. Moves all extremities. PSYCHIATRIC: No obvious anxiety/depression. Pleasant and cooperative. Diagnostic Tests Laboratory: Laboratory Results - last 72 hr 02/04/18 02/05/18 02/05/18 20:09 05:00 05:00 WBC 11.6 H RBC 3.39 L Hgb 11.4 L Hct 33.3 L MCV 98.3 MCH 33.7 MCHC 34.3 RDW 13.1 Plt Count 269 MPV 7.5 Neut % (Auto) 88.4 H Lymph % (Auto) 5.3 L [place] % (Auto) 5.9 Eos % (Auto) 0.3 Baso % (Auto) 0.1 Neut # (Auto) 10.2 H Lymph # (Auto) 0.6 L [place] # (Auto) 0.7 Eos # (Auto) 0.0 Baso # (Auto) 0.0 WBC Differential . Differential Comment Auto diff final PT 11.2 INR 1.1 Sodium 138 Potassium 3.0 L Chloride 98 Carbon Dioxide 31.8 Anion Gap 8 BUN 6 L Creatinine 0.41 L Estimated GFR Greater than 89 Random Glucose 151 H Calcium 8.5 Phosphorus Magnesium 02/05/18 02/06/18 02/06/18 05:00 05:40 05:40 WBC 9.9 RBC 3.17 L Hgb 10.8 L Hct 31.4 L MCV 98.8 MCH 34.1 H MCHC 34.5 RDW 13.0 Plt Count 252 MPV 7.4 Neut % (Auto) 85.9 H Lymph % (Auto) 5.3 L [place] % (Auto) 7.9 Eos % (Auto) 0.8 Baso % (Auto) 0.1 Neut # (Auto) 8.5 H Lymph # (Auto) 0.5 L [place] # (Auto) 0.8 Eos # (Auto) 0.1 Baso # (Auto) 0.0 WBC Differential . Differential Comment Auto diff final PT INR Sodium 138 136 Potassium 3.0 L 3.5 Chloride 99 97 L Carbon Dioxide 32.4 H 30.4 Anion Gap 7 9 BUN 7 8 Creatinine 0.30 L 0.30 L Estimated GFR Greater than 89 Greater than 89 Random Glucose 97 107 H Calcium 8.7 8.9 Phosphorus 2.4 L 2.7 Magnesium 1.9 2.0 02/06/18 02/07/18 05:40 04:20 WBC RBC Hgb Hct MCV MCH MCHC RDW Plt Count MPV Neut % (Auto) Lymph % (Auto) [place] % (Auto) Eos % (Auto) Baso % (Auto) Neut # (Auto) Lymph # (Auto) [place] # (Auto) Eos # (Auto) Baso # (Auto) WBC Differential Differential Comment PT 14.0 H 18.3 H INR 1.4 1.8 Sodium Potassium Chloride Carbon Dioxide Anion Gap BUN Creatinine Estimated GFR Random Glucose Calcium Phosphorus Magnesium Result Diagrams: 02/06/18 05:40 02/06/18 05:40 Procedures: 02/03/18: MediPort 02/04/18: PEG tube Assessment and Plan - Disease Oriented Problem List (1) Dysphagia (2) Failure to thrive (3) Cachexia (4) Stroke (5) Hypertension (6) Throat cancer - Symptom Scale (1) Odynophagia 0-10 Scale: 4 (2) Weight loss 0-10 Scale: Unable to quantify (3) Jaw pain 0-10 Scale: 4 Pertinent Non-Medical Issues: Psychosocial: Patient originally from [place]. In [place] for the past 40 years. She is , a year ago. She has 5 children, 4 in [place] and one in [place]. 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 Spiritual: Holiness [place]. Legal: No advance directives completed. Ethical issues impacting care: No ethical issues identified. 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 Patient not a chemotherapy candidate given functional status, she is cachectic with progressive weight loss. Now with worsening dysphagia and odynophagia. She remains at high risk for further decompensation, continued decline and . Code Status: Full Code Plan: * CODE STATUS: Full code. Risks, benefits and limitations of CPR, intubation and mechanical ventilation discussed with patient and daughter Ceci. * HEALTHCARE DECISION-MAKING: Patient participated in medical decision making. She appears to retain the ability to weight benefits versus burdens of treatment options. No advance directives completed. Patient is . As per [place] statue, healthcare proxy decision making falls to the majority of patient's children for which she has 5. Patient wishing to designate her daughter Ceci Cruz as healthcare surrogate, advanced directives forms left at bedside. * GOALS OF CARE: Patient wishing to pursue aggressive management to include immunotherapy for throat cancer at the guidance of Dr. Sands. Her main goal is to maximize her nutritional and physical status and to remain in independent living for "as long as she can"; however, receptive to rehab vs long-term facility placement as indicated. Daughter verbalizing concerns of patient's ability to remain independent given progressive physical and cognitive decline. Patient with short-term memory issues since stroke in September 2017. Hospice philosophy and benefits previously discussed with patient and family. * SYMPTOMS: = Dysphagia/odynophagia. Secondary to throat cancer status post radiation complicated by post radiation changes to include necrosis. Patient was placed on methadone 5 mg twice daily last week as well as morphine liquid 10 -15 mg as needed for breakthrough pain. Morphine was discontinued over the weekend as per family's request and patient was reinstated on home regimen of hydrocodone/apap 7.5/325mg q4hrs ATC. In the past 24 hours, patient has received 2 doses of IV hydromorphone for breakthrough pain with good effect. She reports that her pain is currently controlled with current plan of care. No further recommendations at this time. * Palliative care to provide assistance with completion of advance directives. Living will and designation of healthcare surrogate forms left with patient's daughter. * Palliative care will continue to follow-up for further clarifications of goals of care, symptom management recommendation and family support as patient' s clinical course continues to evolve. Time Spent Total Floor Time (mins): 24 (Total time to include review of medical records, physical exam, goals of care conversation with patient.) >50% Time in Counseling or Coordination of Care: Yes (Total visit time = 24 minutes; > 50% spent counseling/coordinating care) Attestation Attestation: To help prompt me to consider important information that might be impacting today's encounter and assessment, information from prior notes written by myself or my colleagues may have been "brought forward" into today's note. My signature on this note, however, is an attestation that I personally performed the exam, history, and/or decision-making noted today, and, unless otherwise indicated, the interactions with patient, family, and staff as well as the review of records all occurred today. I also attest that the listed assessment and stated plan reflect my best clinical judgment today based on the combination of historical information, prior notes, and today's exam/ interactions. When time spent is documented, it refers only to time spent today by the signer, or if indicated, combined time spent today by collaborating physician/nurse practitioner.
[2018-02-08] MEDS: Acetaminophen-HYDROcodone 325/7.5 Liq 15 ML UDC G-TUBE SCH ×6 (00:47→20:56)
[2018-02-08 03:53] LABS: Baso % (Auto) 0.2 % (0.0-2.0); Eos # (Auto) 0.1 th/mm3 (0.0-0.4); Eos % (Auto) 1.2 % (0.0-4.0); Hematocrit 29.4 % (35.0-46.0); Hemoglobin 9.9 gm/dL (11.6-15.3); Lymph # (Auto) 0.4 th/mm3 (1.0-4.8); Lymph % (Auto) 5.7 % (9.0-44.0); Mean Corpuscular HGB Conc 33.7 % (32.0-36.0); Mean Corpuscular Hemoglobin 33.7 pg (27.0-34.0); Mean Corpuscular Volume 100.1 fL (80.0-100.0); Mean Platelet Volume 7.3 fL (7.0-11.0); Mono # (Auto) 0.7 th/mm3 (0.0-0.9); Mono % (Auto) 9.7 % (0.0-8.0); Neut # (Auto) 5.6 th/mm3 (1.8-7.7); Neut % (Auto) 83.2 % (16.0-70.0); Platelet Count 226 th/mm3 (150-450); Red Blood Count 2.94 mil/mm3 (4.00-5.30); White Blood Count 6.7 th/mm3 (4.0-11.0)
[2018-02-08 04:01] LABS: INR 1.9 Ratio; Prothrombin Time 18.8 sec (9.8-11.6)
[2018-02-08 04:11] LABS: Anion Gap 6 meq/L (5-15); Blood Urea Nitrogen 7 mg/dL (7-18); Calcium 8.7 mg/dL (8.5-10.1); Carbon Dioxide 35.1 meq/L (21.0-32.0); Chloride 98 meq/L (98-107); Glomerular Filtration Rate Greater Than 89 mL/min (>89); Glucose,Random 127 mg/dL (74-106); Magnesium 1.9 mg/dL (1.5-2.5); Phosphorus 3.2 mg/dL (2.5-4.9); Potassium 3.5 meq/L (3.5-5.1); Sodium 139 meq/L (136-145)
[2018-02-08] MEDS: Heparin - SQ 10,000 UNITS/ML Vial SQ SCH ×3 (05:56→21:01)
[2018-02-08] MEDS: Senna/Docusate Sodium 8.6/50 MG Tablet PO SCH ×2 (09:16→20:57)
[2018-02-08] MEDS: Nystatin/Diphenhydramine/Lidocaine Mouthwash (Adult) 120 ML Botttle SWISH-SWAL SCH ×4 (09:19→20:56)
[2018-02-08] MEDS: Methadone 10 MG Tablet PO SCH ×2 (09:20→20:57)
[2018-02-08] MEDS: Sodium Chloride 0.9% 2 ML Flush BID IV.FLUSH SCH ×2 (09:21→20:58)
[2018-02-08] MEDS: amLODIPine 5 MG Tablet PO SCH (09:32)
--- NOTE | 2018-02-08 14:41 | P.PN ---
Subjective Interval history: Follow up [facility] February 08 2018-patient seen and examined; no change, TF @35cc/hr. Still weak Physical Exam Vital signs: Vital Signs 02/07/18 16:00 02/07/18 18:00 02/07/18 19:50 Temperature 97 F L 99 F Pulse Rate 77 70 83 Respiratory Rate 20 18 Blood Pressure 120/72 127/64 Pulse Oximetry 94 L 02/07/18 20:07 02/07/18 21:40 02/08/18 00:04 Temperature Pulse Rate 84 63 Respiratory Rate 18 Blood Pressure Pulse Oximetry 02/08/18 00:44 02/08/18 01:17 02/08/18 03:36 Temperature 98.1 F 98.3 F Pulse Rate 82 77 Respiratory Rate 16 18 18 Blood Pressure 112/53 L 115/57 L Pulse Oximetry 96 93 L 02/08/18 04:09 02/08/18 07:00 02/08/18 09:10 Temperature 99.7 F H Pulse Rate 62 70 76 Respiratory Rate 16 Blood Pressure 126/58 L Pulse Oximetry 98 02/08/18 12:10 02/08/18 14:00 Temperature 99 F Pulse Rate 79 67 Respiratory Rate 16 Blood Pressure 131/67 Pulse Oximetry 95 Intake & Output 02/07/18 02/08/18 02/08/18 18:59 06:59 18:59 Intake Total 455 / 455 Output Total 3 / 3 250 / 250 Balance -3 / -3 205 / 205 Weight 27.4 kg Intake: Tube Feeding 355 / 355 Water Bolus Amount 100 / 100 Output: Urine 2 / 2 250 / 250 Stool 1 / 1 Other: # Voids 1 Date of Last Bowel Movement 02/07/18 02/07/18 Results - Labs CBC & Chem 7: 02/08/18 03:35 02/08/18 03:35 Laboratory Results - last 24 hr 02/08/18 02/08/18 02/08/18 03:35 03:35 03:35 WBC 6.7 RBC 2.94 L Hgb 9.9 L Hct 29.4 L MCV 100.1 H MCH 33.7 MCHC 33.7 RDW 13.0 Plt Count 226 MPV 7.3 Neut % (Auto) 83.2 H Lymph % (Auto) 5.7 L [place]key % (Auto) 9.7 H Eos % (Auto) 1.2 Baso % (Auto) 0.2 Neut # (Auto) 5.6 Lymph # (Auto) 0.4 L [place]key # (Auto) 0.7 Eos # (Auto) 0.1 Baso # (Auto) 0.0 WBC Differential . Differential Comment Auto diff final PT 18.8 H INR 1.9 Sodium 139 Potassium 3.5 Chloride 98 Carbon Dioxide 35.1 H Anion Gap 6 BUN 7 Creatinine 0.34 L Estimated GFR Greater than 89 Random Glucose 127 H Calcium 8.7 Phosphorus 3.2 Magnesium 1.9 Assessment and Plan - Plan 67 years old female with Failure to thrive The pt has squamous cell carcinoma of the throat. She has significant dysphagia. She was referred to the hospital by her oncologist. She was started on immunotherapy on 02/02. GI consult appreciated. S/p PEG tube placement. IR consulted and port has been placed. Having left sided facial swelling and pain. -speech therapy following. On Tube Feed @35cc/hr -Palliative care consult appreciated. Continue pain control with liquid hydrocodone, methadone and IV Dilaudid for breakthrough pain. -Magic mouthwash. -oncology consult requested. Continue immunotherapy as planned. Cachexia/ Malnourishment The pt has a BMI of 13, indicating severe malnourishment. -Negotiator consult appreciated. On Tube feed @ 35 ml/hr. CVA -Continue Coumadin and follow INR. -PT eval. Hypokalemia Resolved s/p replacement Insomnia -melatonin as needed. PPx: Heparin E-FORCSE Prescription Drug Monitoring Database has been queried and verified prior to prescribing the controlled substance. Acute pain exception. This patient has normal, predicted, physiological, and time limited response to an adverse mechanical stimulus associated with surgery, trauma, or acute illness as described in my notes. There is a lack of alternative treatment options other than to include the prescribed narcotic treatment for this condition.
--- NOTE | 2018-02-08 15:41 | P.PNPAL ---
Reason for Visit Reason for visit: a. To assist with evaluation and management of symptoms including: Pain. b. To assist medical decision maker(s) with: better understanding of current medical conditions; weighing benefits/burdens of medical treatment options; making medical treatment decisions. Subjective Subjective/Interval History: Palliative care follow-up for further clarifications of goals of care, assistance with symptom management and family support. Patient seen in her room sitting up in bed in no acute distress. Endorsing pain to left side of her jaw and throat. Pain described as sharp and throbbing, currently 4 out of 10. Exacerbated by swallowing and alleviated by pain medication. Patient is status post PEG tube placement on Wednesday, currently tolerating tube feedings. Being followed by speech therapy and dietitian. Patient reports that her pain is better controlled with current plan of care. Patient afebrile, stable hemodynamically. No acute events overnight. Daughter Ceci at bedside. Family/Friend Interactions: Spoke with patient and daughter Ceci at bedside. Daughter reports that family cannot accommodate patient at home given her level of debility and needs. Family would like for patient to go to rehab for physical strengthening and to continue with immunotherapy at the guidance of oncology. Case discussed with case assistant Huma, order for PT recommendations place. Patient has been seen previously by PT who recommended home with home health as per family' s request. Reviewed advanced directives. Assisted patient with completion of living will and designation of healthcare surrogate decision maker. Patient electing her daughter Ceci as HCS. Readdressed CODE STATUS in the setting of recurrent throat cancer, profound cachexia/malnutrition and physical deconditioning. Patient requesting to speak with daughter in private before making a final decision, she is to remain full code at this time. Advance Directives Living Will: Never completed Health Care Surrogate: Copy in medical record Durable Power of Equipment Hire Manager: Never completed Objective Vital Signs: Vital Signs 02/07/18 16:00 02/07/18 18:00 02/07/18 19:50 Temperature 97 F L 99 F Pulse Rate 77 70 83 Respiratory Rate 20 18 Blood Pressure 120/72 127/64 Pulse Oximetry 94 L 02/07/18 20:07 02/07/18 21:40 02/08/18 00:04 Temperature Pulse Rate 84 63 Respiratory Rate 18 Blood Pressure Pulse Oximetry 02/08/18 00:44 02/08/18 01:17 02/08/18 03:36 Temperature 98.1 F 98.3 F Pulse Rate 82 77 Respiratory Rate 16 18 18 Blood Pressure 112/53 L 115/57 L Pulse Oximetry 96 93 L 02/08/18 04:09 02/08/18 07:00 02/08/18 09:10 Temperature 99.7 F H Pulse Rate 62 70 76 Respiratory Rate 16 Blood Pressure 126/58 L Pulse Oximetry 98 02/08/18 12:10 02/08/18 14:00 Temperature 99 F Pulse Rate 79 67 Respiratory Rate 16 Blood Pressure 131/67 Pulse Oximetry 95 Intake & Output 02/07/18 02/08/18 02/08/18 18:59 06:59 18:59 Intake Total 455 / 455 Output Total 3 / 3 250 / 250 Balance -3 / -3 205 / 205 Weight 27.4 kg Intake: Tube Feeding 355 / 355 Water Bolus Amount 100 / 100 Output: Urine 2 / 2 250 / 250 Stool / Other: # Voids 1 Date of Last Bowel Movement 02/07/18 02/07/18 Physical Exam: CONSTITUTIONAL/GENERAL: Cachectic female sitting up in bed in no acute distress. TUBES/LINES/DRAINS: PIV's, PEG tube placement. SKIN: Pale. No jaundice, rashes, or lesions. No wounds seen anteriorly. Skin temperature appropriate. Not diaphoretic. HEAD: Atraumatic. Normocephalic. EYES: Pupils equal and round and reactive. Extraocular motions intact. No scleral icterus. No injection or drainage. ENT: Hearing grossly normal. Nose without bleeding or purulent drainage. Moist oral mucosa. Edema to left side of the jaw, tender to touch. NECK: Trachea midline. CARDIOVASCULAR: Regular rate and rhythm. Peripheral pulses symmetric. RESPIRATORY/CHEST: Symmetric, unlabored respirations. Clear to auscultation. Breath sounds equal bilaterally. No wheezes, rales, or rhonchi. GASTROINTESTINAL: Abdomen soft, non-tender, nondistended. No guarding. Bowel sounds present. PEG tube in place. GENITOURINARY: Without palpable bladder distension. MUSCULOSKELETAL: Extremities without clubbing, cyanosis, or edema. No mottling or clubbing. Muscle atrophy to all 4 extremities. NEUROLOGICAL: Awake and alert. Motor and sensory grossly within normal limits. Follows commands. Cognitively sharp. Moves all extremities. PSYCHIATRIC: No obvious anxiety/depression. Pleasant and cooperative. Diagnostic Tests Laboratory: Laboratory Results - last 72 hr 02/06/18 02/06/18 02/06/18 05:40 05:40 05:40 WBC 9.9 RBC 3.17 L Hgb 10.8 L Hct 31.4 L MCV 98.8 MCH 34.1 H MCHC 34.5 RDW 13.0 Plt Count 252 MPV 7.4 Neut % (Auto) 85.9 H Lymph % (Auto) 5.3 L [place] % (Auto) 7.9 Eos % (Auto) 0.8 Baso % (Auto) 0.1 Neut # (Auto) 8.5 H Lymph # (Auto) 0.5 L [place] # (Auto) 0.8 Eos # (Auto) 0.1 Baso # (Auto) 0.0 WBC Differential . Differential Comment Auto diff final PT 14.0 H INR 1.4 Sodium 136 Potassium 3.5 Chloride 97 L Carbon Dioxide 30.4 Anion Gap 9 BUN 8 Creatinine 0.30 L Estimated GFR Greater than 89 Random Glucose 107 H Calcium 8.9 Phosphorus 2.7 Magnesium 2.0 02/07/18 02/08/18 02/08/18 04:20 03:35 03:35 WBC 6.7 RBC 2.94 L Hgb 9.9 L Hct 29.4 L MCV 100.1 H MCH 33.7 MCHC 33.7 RDW 13.0 Plt Count 226 MPV 7.3 Neut % (Auto) 83.2 H Lymph % (Auto) 5.7 L [place] % (Auto) 9.7 H Eos % (Auto) 1.2 Baso % (Auto) 0.2 Neut # (Auto) 5.6 Lymph # (Auto) 0.4 L [place] # (Auto) 0.7 Eos # (Auto) 0.1 Baso # (Auto) 0.0 WBC Differential . Differential Comment Auto diff final PT 18.3 H INR 1.8 Sodium 139 Potassium 3.5 Chloride 98 Carbon Dioxide 35.1 H Anion Gap 6 BUN 7 Creatinine 0.34 L Estimated GFR Greater than 89 Random Glucose 127 H Calcium 8.7 Phosphorus 3.2 Magnesium 1.9 02/08/18 03:35 WBC RBC Hgb Hct MCV MCH MCHC RDW Plt Count MPV Neut % (Auto) Lymph % (Auto) [place] % (Auto) Eos % (Auto) Baso % (Auto) Neut # (Auto) Lymph # (Auto) [place] # (Auto) Eos # (Auto) Baso # (Auto) WBC Differential Differential Comment PT 18.8 H INR 1.9 Sodium Potassium Chloride Carbon Dioxide Anion Gap BUN Creatinine Estimated GFR Random Glucose Calcium Phosphorus Magnesium Result Diagrams: 02/08/18 03:35 02/08/18 03:35 Procedures: 02/03/18: MediPort 02/04/18: PEG tube Assessment and Plan - Disease Oriented Problem List (1) Dysphagia (2) Failure to thrive (3) Cachexia (4) Stroke (5) Hypertension (6) Throat cancer - Symptom Scale (1) Odynophagia 0-10 Scale: Unable to quantify (2) Weight loss 0-10 Scale: Unable to quantify (3) Jaw pain 0-10 Scale: 4 Pertinent Non-Medical Issues: Psychosocial: Patient originally from [place]. In [place] for the past 40 years. She is , a year ago. She has 5 children, 4 in [place] and one in [place]. 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 Spiritual: Zoroastrian peyton. Legal: No advance directives completed. Ethical issues impacting care: No ethical issues identified. 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 Patient not a chemotherapy candidate given functional status, she is cachectic with progressive weight loss. Now with worsening dysphagia and odynophagia. She remains at high risk for further decompensation, continued decline and . Code Status: Full Code Plan: * CODE STATUS: Full code. Risks, benefits and limitations of CPR, intubation and mechanical ventilation discussed with patient and daughter Ceci on 02/08. * HEALTHCARE DECISION-MAKING: Patient participated in medical decision making. She appears to retain the ability to weight benefits versus burdens of treatment options. Patient was assisted with completion of advance directives, she has designated her daughter Ceci Cruz as healthcare surrogate decision maker. * * GOALS OF CARE: Patient wishing to pursue aggressive management to include immunotherapy for throat cancer at the guidance of Dr. Sands. Her main goal is to maximize her nutritional and physical status and to remain in independent living for "as long as she can"; however, receptive to rehab vs long-term facility placement as indicated. Daughter verbalizing concerns of patient's ability to remain independent given progressive physical and cognitive decline. Patient with short-term memory issues since stroke in September 2017. Hospice philosophy and benefits previously discussed with patient and family. * SYMPTOMS: = Dysphagia/odynophagia. Secondary to throat cancer status post radiation complicated by post radiation changes to include necrosis. Patient was placed on methadone 5 mg twice daily last week as well as morphine liquid 10 -15 mg as needed for breakthrough pain. Morphine was discontinued over the weekend as per family's request secondary to adverse reactions to include twitching and insomnia. Patient was reinstated on home regimen of hydrocodone/ apap 7.5/325mg q4hrs ATC. In the past 24 hours, patient has received 1 dose of IV hydromorphone for breakthrough pain with good effect. She reports that her pain is currently controlled with current plan of care. No further recommendations at this time. * Case discussed with case assistant Huma. * Palliative care will continue to follow-up for further clarifications of goals of care, symptom management recommendation and family support as patient' s clinical course continues to evolve. Time Spent Total Floor Time (mins): 44 (Total time to include review of medical records, physical exam, goals of care conversation with patient and daughter, case discussion with case assistant, assistance with completion of advance directives. 20 minutes dedicated to advanced care planning with assistance with completion of living will and healthcare surrogate decision maker.) >50% Time in Counseling or Coordination of Care: Yes (Total visit time = 44 minutes; > 50% spent counseling/coordinating care) Attestation Attestation: To help prompt me to consider important information that might be impacting today's encounter and assessment, information from prior notes written by myself or my colleagues may have been "brought forward" into today's note. My signature on this note, however, is an attestation that I personally performed the exam, history, and/or decision-making noted today, and, unless otherwise indicated, the interactions with patient, family, and staff as well as the review of records all occurred today. I also attest that the listed assessment and stated plan reflect my best clinical judgment today based on the combination of historical information, prior notes, and today's exam/ interactions. When time spent is documented, it refers only to time spent today by the signer, or if indicated, combined time spent today by collaborating physician/nurse practitioner.
[2018-02-09] MEDS: Acetaminophen-HYDROcodone 325/7.5 Liq 15 ML UDC G-TUBE SCH ×6 (00:04→19:56)
[2018-02-09] MEDS: HYDROmorphone PF Inj 2 MG/ML Vial IV.PUSH PRN ×3 (03:02→14:55)
[2018-02-09] MEDS: Heparin - SQ 10,000 UNITS/ML Vial SQ SCH (05:59)
[2018-02-09 06:35] LABS: Prothrombin Time 20.1 sec (9.8-11.6)
[2018-02-09] MEDS: Methadone 10 MG Tablet PO SCH ×2 (08:22→20:48)
[2018-02-09] MEDS: Senna/Docusate Sodium 8.6/50 MG Tablet PO SCH ×2 (08:22→20:48)
[2018-02-09] MEDS: amLODIPine 5 MG Tablet PO SCH (08:22)
[2018-02-09] MEDS: Sodium Chloride 0.9% 2 ML Flush BID IV.FLUSH SCH ×2 (08:24→20:50)
[2018-02-09] MEDS: Nystatin/Diphenhydramine/Lidocaine Mouthwash (Adult) 120 ML Botttle SWISH-SWAL SCH ×4 (08:24→20:49)
--- NOTE | 2018-02-09 12:18 | P.PNPAL ---
Reason for Visit Reason for visit: a. To assist with evaluation and management of symptoms including: Pain. b. To assist medical decision maker(s) with: better understanding of current medical conditions; weighing benefits/burdens of medical treatment options; making medical treatment decisions. Subjective Subjective/Interval History: Palliative care follow-up for further clarifications of goals of care, assistance with symptom management and family support. Patient seen in her room sitting up in bed in no acute distress. Endorsing pain to left side of her jaw and throat. Pain described as sharp and throbbing, currently 2 out of 10. Exacerbated by swallowing and alleviated by pain medication. Patient is status post PEG tube placement, currently tolerating continuous tube feedings at 35 mL/ h. No nausea or vomiting reported. Patient reports that her last bowel movement was on Wednesday 02/07. Speech therapy and dietitian following. Patient afebrile, stable hemodynamically. No acute events overnight. No family at bedside. Case discussed with nurse outreach case manager. Advance Directives Living Will: Never completed Health Care Surrogate: Copy in medical record Durable Power of Direct Service Provider: Never completed Objective Vital Signs: Vital Signs 02/08/18 12:10 02/08/18 14:00 02/08/18 15:57 Temperature 99 F 99.5 F Pulse Rate 79 67 85 Respiratory Rate 16 16 Blood Pressure 131/67 110/52 L Pulse Oximetry 95 94 L 02/08/18 16:00 02/08/18 19:00 02/08/18 20:45 Temperature 100.3 F H Pulse Rate 83 80 88 Respiratory Rate 18 Blood Pressure 139/58 L Pulse Oximetry 98 02/08/18 23:00 02/09/18 00:02 02/09/18 03:00 Temperature 100 F H 100.1 F H Pulse Rate 72 83 63 Respiratory Rate 18 18 Blood Pressure 118/50 L 107/57 L Pulse Oximetry 97 96 02/09/18 08:00 Temperature 99.0 F Pulse Rate 76 Respiratory Rate 20 Blood Pressure 121/58 L Pulse Oximetry 92 L Intake & Output 02/08/18 02/09/18 02/09/18 18:59 06:59 18:59 Intake Total 1000 / 1000 Output Total 700 / 700 Balance 300 / 300 Weight 28 kg Intake: Oral 1000 / 1000 Output: Urine 700 / 700 Other: # Voids 5 Date of Last Bowel Movement 02/07/18 Physical Exam: CONSTITUTIONAL/GENERAL: Cachectic female sitting up in bed in no acute distress. TUBES/LINES/DRAINS: PIV's, PEG tube placement. SKIN: Pale. No jaundice, rashes, or lesions. No wounds seen anteriorly. Skin temperature appropriate. Not diaphoretic. HEAD: Atraumatic. Normocephalic. EYES: Pupils equal and round and reactive. Extraocular motions intact. No scleral icterus. No injection or drainage. ENT: Hearing grossly normal. Nose without bleeding or purulent drainage. Moist oral mucosa. Edema to left side of the jaw, tender to touch. NECK: Trachea midline. CARDIOVASCULAR: Regular rate and rhythm. Peripheral pulses symmetric. RESPIRATORY/CHEST: Symmetric, unlabored respirations. Clear to auscultation. Breath sounds equal bilaterally. No wheezes, rales, or rhonchi. GASTROINTESTINAL: Abdomen soft, non-tender, nondistended. No guarding. Bowel sounds present. PEG tube in place. GENITOURINARY: Without palpable bladder distension. MUSCULOSKELETAL: Extremities without clubbing, cyanosis, or edema. No mottling or clubbing. Muscle atrophy to all 4 extremities. NEUROLOGICAL: Awake and alert. Motor and sensory grossly within normal limits. Follows commands. Cognitively sharp. Moves all extremities. PSYCHIATRIC: No obvious anxiety/depression. Pleasant and cooperative. Diagnostic Tests Laboratory: Laboratory Results - last 72 hr 02/07/18 02/08/18 02/08/18 04:20 03:35 03:35 WBC 6.7 RBC 2.94 L Hgb 9.9 L Hct 29.4 L MCV 100.1 H MCH 33.7 MCHC 33.7 RDW 13.0 Plt Count 226 MPV 7.3 Neut % (Auto) 83.2 H Lymph % (Auto) 5.7 L [place] % (Auto) 9.7 H Eos % (Auto) 1.2 Baso % (Auto) 0.2 Neut # (Auto) 5.6 Lymph # (Auto) 0.4 L [place] # (Auto) 0.7 Eos # (Auto) 0.1 Baso # (Auto) 0.0 WBC Differential . Differential Comment Auto diff final PT 18.3 H INR 1.8 Sodium 139 Potassium 3.5 Chloride 98 Carbon Dioxide 35.1 H Anion Gap 6 BUN 7 Creatinine 0.34 L Estimated GFR Greater than 89 Random Glucose 127 H Calcium 8.7 Phosphorus 3.2 Magnesium 1.9 02/08/18 02/09/18 03:35 06:15 WBC RBC Hgb Hct MCV MCH MCHC RDW Plt Count MPV Neut % (Auto) Lymph % (Auto) [place] % (Auto) Eos % (Auto) Baso % (Auto) Neut # (Auto) Lymph # (Auto) [place] # (Auto) Eos # (Auto) Baso # (Auto) WBC Differential Differential Comment PT 18.8 H 20.1 H INR 1.9 2.0 Sodium Potassium Chloride Carbon Dioxide Anion Gap BUN Creatinine Estimated GFR Random Glucose Calcium Phosphorus Magnesium Result Diagrams: 02/08/18 03:35 02/08/18 03:35 Procedures: 02/03/18: MediPort 02/04/18: PEG tube Assessment and Plan - Disease Oriented Problem List (1) Dysphagia (2) Failure to thrive (3) Cachexia (4) Stroke (5) Hypertension (6) Throat cancer - Symptom Scale (2) Weight loss 0-10 Scale: Unable to quantify (3) Jaw pain 0-10 Scale: 3 Pertinent Non-Medical Issues: Psychosocial: Patient originally from [place]. In [place] for the past 40 years. She is , a year ago. She has 5 children, 4 in [place] and one in [place]. 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 Spiritual: Yarsanism pey[place]. Legal: No advance directives completed. Ethical issues impacting care: No ethical issues identified. 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 Patient not a chemotherapy candidate given functional status, she is cachectic with progressive weight loss. Now with worsening dysphagia and odynophagia. She remains at high risk for further decompensation, continued decline and . Code Status: Full Code Plan: * CODE STATUS: Full code. Risks, benefits and limitations of CPR, intubation and mechanical ventilation discussed with patient and daughter Ceci on 02/08. * HEALTHCARE DECISION-MAKING: Patient participated in medical decision making. She appears to retain the ability to weight benefits versus burdens of treatment options. Patient was assisted with completion of advance directives, she has designated her daughter Ceci Cruz as healthcare surrogate decision maker. * * GOALS OF CARE: Patient wishing to pursue aggressive management to include immunotherapy for throat cancer at the guidance of Dr. Sands. Her main goal is to maximize her nutritional and physical status and to remain in independent living for "as long as she can". Patient and family electing to be discharged to rehabilitation for physical strengthening. Hospice philosophy and benefits previously discussed with patient and family. * SYMPTOMS: = Dysphagia/odynophagia. Secondary to throat cancer status post radiation complicated by post radiation changes to include necrosis. Patient on methadone 5 mg twice daily. Patient was reinstated on home regimen of hydrocodone/apap 7.5/325mg q4hrs but was made around the clock as per family's request. Hydromorphone 1 mg IV available as needed. In the past 24 hours, patient has received 1 dose of IV hydromorphone for breakthrough pain with good effect. She reports that her pain is currently controlled with current plan of care. In anticipation of rehab discharge, palliative care recommends changing hydrocodone/apap 7.5/325mg back to q4hrs PRN as per home regimen and to continue with Methadone 5mg PO BID. Patient to follow-up with Oncology Dr. Sands for immunotherapy and symptom management. = Constipation: Exacerbated by opioid use and sedimentary lifestyle. Last BM 02/07. Senna-docusate 1 tab BID scheduled, may increase to 2 tabs BID -Hold for watery stools. * Case discussed with nurse outreach case manager. * Palliative care will continue to follow-up for further clarifications of goals of care, symptom management recommendation and family support as patient' s clinical course continues to evolve. Time Spent Total Floor Time (mins): 35 (Total time to include review of medical records, physical exam, goals of care conversation with patient, case discussion with nurse outreach case manager.) >50% Time in Counseling or Coordination of Care: Yes (Total visit time = 35 minutes; > 50% spent counseling/coordinating care) Attestation Attestation: To help prompt me to consider important information that might be impacting today's encounter and assessment, information from prior notes written by myself or my colleagues may have been "brought forward" into today's note. My signature on this note, however, is an attestation that I personally performed the exam, history, and/or decision-making noted today, and, unless otherwise indicated, the interactions with patient, family, and staff as well as the review of records all occurred today. I also attest that the listed assessment and stated plan reflect my best clinical judgment today based on the combination of historical information, prior notes, and today's exam/ interactions. When time spent is documented, it refers only to time spent today by the signer, or if indicated, combined time spent today by collaborating physician/nurse practitioner.
--- NOTE | 2018-02-09 12:29 | P.PN ---
Subjective Interval history: Follow up FTT February 08 2018-patient seen and examined; no change, TF @35cc/hr. Still weak February 09, 2018-patient seen and examined, no complaint. no acute event overnight. Afebrile. Tolerating PO as well as tube feed Physical Exam Vital signs: Vital Signs 02/08/18 14:00 02/08/18 15:57 02/08/18 16:00 Temperature 99.5 F Pulse Rate 67 85 83 Respiratory Rate 16 Blood Pressure 110/52 L Pulse Oximetry 94 L 02/08/18 19:00 02/08/18 20:45 02/08/18 23:00 Temperature 100.3 F H Pulse Rate 80 88 72 Respiratory Rate 18 Blood Pressure 139/58 L Pulse Oximetry 98 02/09/18 00:02 02/09/18 03:00 02/09/18 08:00 Temperature 100 F H 100.1 F H 99.0 F Pulse Rate 83 63 76 Respiratory Rate 18 18 20 Blood Pressure 118/50 L 107/57 L 121/58 L Pulse Oximetry 97 96 92 L Intake & Output 02/08/18 02/09/18 02/09/18 18:59 06:59 18:59 Intake Total 1000 / 1000 Output Total 700 / 700 Balance 300 / 300 Weight 28 kg Intake: Oral 1000 / 1000 Output: Urine 700 / 700 Other: # Voids 5 Date of Last Bowel Movement 02/07/18 Narrative: General: NAD, cachectic. HEENT: Swelling on left side of face and neck is improved. Lungs: CTAB. Cardiac: RRR. No M/R/G. GI: Thin abdomen. Soft. Nontender. PEG tube in place. Extremities: No edema. Neuro: Awake and alert. Moves upper and lower extremities. Psych: Mood and affect appropriate. Results - Labs CBC & Chem 7: 02/08/18 03:35 02/08/18 03:35 Laboratory Results - last 24 hr 02/09/18 06:15 PT 20.1 H INR 2.0 Assessment and Plan - Plan 67 years old female with Failure to thrive The pt has squamous cell carcinoma of the throat. She has significant dysphagia. She was referred to the hospital by her oncologist. She was started on immunotherapy on 02/02. GI consult appreciated. S/p PEG tube placement. IR consulted and port has been placed. Having left sided facial swelling and pain. -speech therapy following. On Tube Feed @35cc/hr as well as PO intake -Palliative care consult appreciated. Continue pain control with liquid hydrocodone, methadone and IV Dilaudid for breakthrough pain. -Magic mouthwash. -oncology consult requested. Continue immunotherapy as planned. Cachexia/ Malnourishment The pt has a BMI of 13, indicating severe malnourishment. -Refrigeration Lead consult appreciated. On Tube feed @ 35 ml/hr as well as tray CVA -Continue Coumadin -PT eval. Hypokalemia Resolved s/p replacement Insomnia -melatonin as needed. PPx: Heparin E-FORCSE Prescription Drug Monitoring Database has been queried and verified prior to prescribing the controlled substance. Acute pain exception. This patient has normal, predicted, physiological, and time limited response to an adverse mechanical stimulus associated with surgery, trauma, or acute illness as described in my notes. There is a lack of alternative treatment options other than to include the prescribed narcotic treatment for this condition.
--- NOTE | 2018-02-09 14:39 | P.DS ---
Date of admission: 02/03/18 08:22 Primary care physician: UNKNOWN Brief History from admission: The patient is a 67-year-old female with past medical history of squamous cell carcinoma of the throat and CVA who is presenting to the hospital with throat pain and failure to thrive. The patient's daughter was at the bedside and assisted with the history. The patient was referred to the hospital as a direct admission by her oncologist, Dr. Sands. The patient says that she has been struggling to eat. She says that food goes down quite easily but any liquid gives her trouble. She says she has received 7 weeks of radiation therapy. She says her weight was stable while she was on radiation but she has been losing weight after radiation. She developed necrosis in her throat from radiation treatments and has significant 10 out of 10 swallowing pain. The patient says she went from 67 pounds to 62 pounds. She says she was not a candidate for chemotherapy because of how we can find she is. The patient has been taking hydrocodone liquid every 4 hours at home and has been taking MS Contin for long-term pain control. She was started on immunotherapy yesterday. She is aware that she is here in the hospital to have a feeding tube placed and a port placed. The patient's family is interested in possible home hospice services at the time of discharge. Discussed with nursing. DS: Medications - Discharge Medications Prescriptions: hydrocodone-acetaminophen 15 ml PO Q4H PRN #16 ml PRN Reason: Acute Pain DS: Summary Hospital Course: While in the hospital, patient was treated for: Failure to thrive The pt has squamous cell carcinoma of the throat. She has significant dysphagia. She was referred to the hospital by her oncologist. She was started on immunotherapy on 02/02. GI consult appreciated. S/p PEG tube placement. IR consulted and port has been placed. Having left sided facial swelling and pain. -speech therapy following. On Tube Feed @35cc/hr as well as PO intake -Palliative care consult appreciated. Continue pain control with liquid hydrocodone, methadone and IV Dilaudid for breakthrough pain. -Magic mouthwash. -oncology consult requested. Continue immunotherapy as planned. Cachexia/ Malnourishment The pt has a BMI of 13, indicating severe malnourishment. -Gymnastic Coach consult appreciated. On Tube feed @ 35 ml/hr as well as tray CVA -Continue Coumadin -PT eval. Hypokalemia Resolved s/p replacement Insomnia -melatonin as needed. PPx: Heparin - Time Spent with Patient Total time spent providing and/or coordinating discharge services: Greater than 30 minutes - Quality: VTE Deep Vein Thrombosis/Pulmonary Embolism Present on Admission: No Exam Vital signs: Vital Signs 02/08/18 15:57 02/08/18 16:00 02/08/18 19:00 Temperature 99.5 F Pulse Rate 85 83 80 Respiratory Rate 16 Blood Pressure 110/52 L Pulse Oximetry 94 L 02/08/18 20:45 02/08/18 23:00 02/09/18 00:02 Temperature 100.3 F H 100 F H Pulse Rate 88 72 83 Respiratory Rate 18 18 Blood Pressure 139/58 L 118/50 L Pulse Oximetry 98 97 02/09/18 03:00 02/09/18 08:00 02/09/18 12:00 Temperature 100.1 F H 99.0 F 99.6 F Pulse Rate 63 76 90 Respiratory Rate 18 20 16 Blood Pressure 107/57 L 121/58 L 123/92 H Pulse Oximetry 96 92 L 97 Intake & Output 02/08/18 02/09/18 02/09/18 18:59 06:59 18:59 Intake Total 1000 / 1000 Output Total 700 / 700 Balance 300 / 300 Weight 28 kg Intake: Oral 1000 / 1000 Output: Urine 700 / 700 Other: # Voids 5 2 Date of Last Bowel Movement 02/07/18 Narrative: General: NAD, cachectic. HEENT: Swelling on left side of face and neck is improved. Lungs: CTAB. Cardiac: RRR. No M/R/G. GI: Thin abdomen. Soft. Nontender. PEG tube in place. Extremities: No edema. Neuro: Awake and alert. Moves upper and lower extremities. Psych: Mood and affect appropriate. Results Procedures completed during hospitalization: None Labs on day of discharge: Labs from last 24 hours 02/09/18 06:15 PT 20.1 H INR 2.0 - Impressions ITS Impressions Port Line Insertion 02/03/18 00:00 CONCLUSION: 1. Uncomplicated ultrasound and fluoroscopic guided implanted central venous port catheter placement as described in detail above. An 8 Kisw[place]ili Power port was placed. Chest X-Ray 02/03/18 15:19 CONCLUSION: The right lung apex is suboptimally visualized due to overlapping structures. A subtle miniscule curvilinear lucency projecting over the right lung apex is favored to represent artifact rather than a true pneumothorax. No pneumothorax is identified on the comparison fluoroscopic image obtained after placement of the chest port. Recommend clinical correlation and consideration of follow-up chest radiograph, if clinically warranted. Videofluoroscopic Swallow 02/05/18 00:00 CONCLUSION: No aspiration visualized. Discharge Plan - Discharge Disposition Patient Disposition: Discharge to SNF - Discharge Condition Condition: Fair - Discharge Order Discharge Orders: Discharge Order (Routine); Ordered 02/09/18 Ordered By: Gabriel Churchill - Physicians Team Primary Care Provider: UNKNOWN, Attending Provider: Gabriel Churchill Other Providers: Sly Cisse MD ; Pilar Calvert MD ; Ruth Sands MD ; [facility] - Rxs /Orders / Referrals /Forms Prescriptions: New sennosides-docusate sodium [Senna Plus] 8.6-50 mg Tablet 1 tab PO BID RF: 0 Continue amlodipine 5 mg Tablet 5 mg PO BID atorvastatin 40 mg Tablet 40 mg PO HS Qty: 30 RF: 0 hydrocodone-acetaminophen 7.5-325 mg/15 mL Solution 15 ml PO Q4H PRN (Reason: Acute Pain) Qty: 16 RF: 0 mouthwash compounding base 227 Mouthwash 5 ml Mucous Membrane ACHS warfarin [Coumadin] 1 mg tablet 2 mg PO DAILY@1600 Discontinued morphine [MS Contin] 15 mg Tablet Extended Release 15 mg PO Q12H Referrals: UNKNOWN, [Primary Care Provider] - See Instructions
[2018-02-10] MEDS: Acetaminophen-HYDROcodone 325/7.5 Liq 15 ML UDC G-TUBE SCH ×4 (00:41→11:10)
[2018-02-10 05:34] LABS: INR 1.9 Ratio; Prothrombin Time 18.8 sec (9.8-11.6)
[2018-02-10] MEDS: Methadone 10 MG Tablet PO SCH (08:39)
[2018-02-10] MEDS: amLODIPine 5 MG Tablet PO SCH (08:39)
[2018-02-10] MEDS: Senna/Docusate Sodium 8.6/50 MG Tablet PO SCH (08:39)
[2018-02-10] MEDS: Sodium Chloride 0.9% 2 ML Flush BID IV.FLUSH SCH (08:40)
[2018-02-10] MEDS: Nystatin/Diphenhydramine/Lidocaine Mouthwash (Adult) 120 ML Botttle SWISH-SWAL SCH ×2 (08:40→12:03)
[2018-02-10] MEDS: HYDROmorphone PF Inj 2 MG/ML Vial IV.PUSH PRN (10:51)
--- NOTE | 2018-02-10 11:54 | P.PN ---
Subjective Interval history: Follow up FTT February 08 2018-patient seen and examined; no change, TF @35cc/hr. Still weak February 09, 2018-patient seen and examined, no complaint. no acute event overnight. Afebrile. Tolerating PO as well as tube feed February 10, 2018-patient seen and examined, stable, no complaints. Physical Exam Vital signs: Vital Signs 02/09/18 12:00 02/09/18 14:52 02/09/18 18:00 Temperature 99.6 F 99.6 F Pulse Rate 90 95 H 72 Respiratory Rate 16 16 Blood Pressure 123/92 H 119/63 Pulse Oximetry 97 98 02/09/18 20:00 02/09/18 20:05 02/09/18 21:46 Temperature 98.8 F Pulse Rate 74 85 Respiratory Rate 20 16 Blood Pressure 137/60 Pulse Oximetry 97 02/10/18 00:00 02/10/18 00:06 02/10/18 03:41 Temperature 98.7 F 99 F Pulse Rate 83 73 77 Respiratory Rate 18 18 Blood Pressure 120/62 125/64 Pulse Oximetry 97 95 02/10/18 03:59 02/10/18 08:00 02/10/18 11:37 Temperature 98.5 F Pulse Rate 80 80 Respiratory Rate 16 20 Blood Pressure 135/66 Pulse Oximetry 94 L Intake & Output 02/09/18 02/10/18 02/10/18 18:59 06:59 18:59 Intake Total 875 / 875 Output Total 400 / 400 850 / 850 Balance -400 / -400 25 / 25 Weight 27.6 kg Intake: Oral 300 / 300 Tube Feeding 375 / 375 Tube Irrigant 100 / 100 Water Bolus Amount 100 / 100 Output: Urine 400 / 400 850 / 850 Other: # Voids 2 Date of Last Bowel Movement 02/07/18 02/07/18 Narrative: General: NAD, cachectic. HEENT: Swelling on left side of face and neck is improved. Lungs: CTAB. Cardiac: RRR. No M/R/G. GI: Thin abdomen. Soft. Nontender. PEG tube in place. Extremities: No edema. Neuro: Awake and alert. Moves upper and lower extremities. Psych: Mood and affect appropriate. Results - Labs CBC & Chem 7: 02/08/18 03:35 02/08/18 03:35 Laboratory Results - last 24 hr 02/10/18 03:45 PT 18.8 H INR 1.9 - Procedures None Assessment and Plan - Plan 67 years old female with Failure to thrive The pt has squamous cell carcinoma of the throat. She has significant dysphagia. She was referred to the hospital by her oncologist. She was started on immunotherapy on 02/02. GI consult appreciated. S/p PEG tube placement. IR consulted and port has been placed. Having left sided facial swelling and pain. -speech therapy following. On Tube Feed @35cc/hr as well as PO intake -Palliative care consult appreciated. Continue pain control with liquid hydrocodone, methadone and IV Dilaudid for breakthrough pain. -Magic mouthwash. -oncology consult requested. Continue immunotherapy as planned. Cachexia/ Malnourishment The pt has a BMI of 13, indicating severe malnourishment. -Campus Manager consult appreciated. On Tube feed @ 35 ml/hr as well as tray CVA -Continue Coumadin -PT eval. Hypokalemia Resolved s/p replacement Insomnia -melatonin as needed. PPx: Heparin E-FORCSE Prescription Drug Monitoring Database has been queried and verified prior to prescribing the controlled substance. Acute pain exception. This patient has normal, predicted, physiological, and time limited response to an adverse mechanical stimulus associated with surgery, trauma, or acute illness as described in my notes. There is a lack of alternative treatment options other than to include the prescribed narcotic treatment for this condition.
[2018-02-10 12:19] VITALS: BP 126/70; PULSE 76; RESP 18; TEMP 98.7; O2SAT 95
== END 2018-02-10 12:30 ==
LOC: HCIN 08:22
PROVIDERS: ADMIT Hospitalist; ATTEND Hospitalist

== ENCOUNTER 2018-03-12 11:00 | Inpatient (IN) ==
--- NOTE | 2018-03-12 11:17 | ED ---
HPI General Chief complaint: Nausea/Vomiting/Diarrhea Stated complaint: GI/CA pt Time Seen by Provider: 03/12/18 11:03 Source: patient Mode of arrival: ambulatory Limitations: no limitations History of Present Illness HPI narrative: The patient is a 67-year-old female presents to the emergency department via EMS for bleeding from the oropharynx. The patient has a history of squamous cell carcinoma of the oropharynx and is currently on palliative chemotherapy and is on hospice. The patient is followed by her oncologist, Dr. Sands. The patient is also currently on Coumadin, however, the patient cannot relay whether she is on Coumadin for history of PE/DVT or atrial fibrillation with prior history of CVA. The patient apparently had some bleeding from the oropharynx that occurred last night, the hospice staff contacted the physician who advised her to come to the emergency department via EMS. The patient is a somewhat limited historian but denies any chest pain, shortness of breath, nausea, or vomiting. The patient also has a history of failure to thrive with a G-tube in place and a port in place in the right upper chest wall. The patient denies any symptoms prior to arrival. MD complaint: Bleeding Onset (ago): hour(s) Location: mouth Radiation: non-radiation Severity: mild Relieving factors: none Exacerbating factors: other Associated symptoms: Reports denies other symptoms Treatments prior to arrival: Reports none Related Data Home Medications Medication Instructions Recorded Confirmed amlodipine 5 mg PO BID 09/30/17 03/12/18 warfarin [Coumadin] 2 mg PO DAILY@1600 01/18/18 03/12/18 methadone 10 mg PO TID 03/12/18 03/12/18 Previous Rx's Medication Instructions Recorded atorvastatin 40 mg PO HS #30 tab 10/02/17 sennosides-docusate sodium [Senna 1 tab PO BID tab 02/09/18 Plus] Allergies Allergy/AdvReac Type Severity Reaction Status Date / Time No Known Allergies Allergy Verified 03/12/18 11:08 Review of Systems ROS: all other systems reviewed are negative PMFSH Social History Social History Substance History: No History of Abuse Second Hand Smoke Exposure: No Smoking Status: Former smoker Tobacco Type: Cigarettes Packs Per Day: 1.5 Cigarettes Per Day: 30.0 Years Smoked: 30 Pack-Years: 45.00 How Often Do You Have a Drink Containing Alcohol: Never Recent Travel in [facility] within the Last 8 Weeks: No Recent Out of Country Travel within the Last 8 Weeks: No Exam Narrative Exam Narrative: GENERAL: Awake, alert, pleasant 67-year-old female who appears her stated age and is in no acute respiratory distress. Mild cachexia noted. SKIN: Focused skin assessment warm/dry. HEAD: Atraumatic. Normocephalic. EYES: Pupils equal and round. No scleral icterus. No injection or drainage. ENT: Limited ability to open the jaw. There does appear to be a soft tissue mass in the left lower jaw just lateral to the teeth as well as in the posterior left oropharynx. Dried blood was noted, the patient was able to swish and spit water, no obvious source of bleeding. NECK: Trachea midline. No JVD. CARDIOVASCULAR: Regular rate and rhythm. No murmur appreciated. Heart rate in the 90s. Port in place right chest wall. RESPIRATORY: No accessory muscle use. Prolonged expiratory phase. GASTROINTESTINAL: Abdomen soft, PEG tube in place. MUSCULOSKELETAL: No obvious deformities. No clubbing. No cyanosis. No edema. NEUROLOGICAL: Awake and alert. No obvious cranial nerve deficits. Motor grossly within normal limits. Normal speech. PSYCHIATRIC: Appropriate mood and affect; insight and judgment normal. Course Initial Documented Vital Signs Temperature 98.0 F 03/12/18 11:08 Pulse Rate 97 H 03/12/18 11:08 Respiratory Rate 20 03/12/18 11:08 Blood Pressure 126/59 L 03/12/18 11:08 Pulse Oximetry 95 03/12/18 11:08 Last Documented Vital Signs Temperature 98.0 F 03/12/18 11:08 Pulse Rate 103 H 03/12/18 11:12 Respiratory Rate 20 03/12/18 11:12 Blood Pressure 126/59 L 03/12/18 11:12 Pulse Oximetry 94 L 03/12/18 11:12 Medical Decision Making MDM Narrative Medical decision making narrative: The patient was able to swish and spit water , clearing the blood that was in the oropharynx. I cannot visualize any obvious bleeding from the mass in the left posterior oropharynx or from the left anterior mass. PT/INR and CBC were sent to lab. I had a discussion with the patient regarding oxygen use at home, she states she had home oxygen delivered 3 days ago, but does not use it at home. She denied any current symptoms upon arrival. The patient continued to be monitored in the emergency department for any further bleeding from the oropharynx. The patient still had a small amount of oozing, the blood clot from the left lower posterior aspect of the tooth line was removed, she has a little oozing of blood from there, no visible arterial pulsations. The patient's platelet count was normal, hemoglobin was baseline, INR however was greater than 16. The patient was recently on Diflucan for candidiasis, she has been on her immunotherapy for an extended time according to the daughter, she does not believe that is the cause of her elevated INR. The patient had thrombin applied via cotton ball to the affected area and was administered FFP and vitamin K. The patient may benefit from being evaluated by her crap game box person to evaluate if the immunotherapy is interacting with Coumadin. The patient will be admitted for monitoring, to evaluate if the bleeding resolves after correction of her elevated INR. The daughter is comfortable with this plan of care. I discussed the patient with Dr. Kaiser who agrees with admission. Medical Screen Exam Complete: Yes Emergency Medical Condition: Yes Differential Diagnosis Differential Diagnosis: Differential diagnosis includes oropharyngeal squamous cell carcinoma, coagulopathy, hemoptysis, bronchitis, pneumonia, pulmonary embolism, thrombocytopenia, upper GI bleed. Lab Data Result diagrams: 03/12/18 11:35 03/12/18 11:35 Lab Results 03/12/18 03/12/18 03/12/18 Range/Units 11:35 11:35 12:45 WBC 16.3 H (4.0-11.0) th/mm3 RBC 2.92 L (4.00-5.30) mil/mm3 Hgb 9.9 L (11.6-15.3) gm/dL Hct 29.1 L (35.0-46.0) % MCV 99.4 (80.0-100.0) fL MCH 34.0 (27.0-34.0) pg MCHC 34.2 (32.0-36.0) % RDW 13.9 (11.6-17.2) % Plt Count 436 (150-450) th/mm3 MPV 7.4 (7.0-11.0) fL Neut % (Auto) 91.7 H (16.0-70.0) % Lymph % (Auto) 2.4 L (9.0-44.0) % Young % (Auto) 5.7 (0.0-8.0) % Eos % (Auto) 0.1 (0.0-4.0) % Baso % (Auto) 0.1 (0.0-2.0) % Neut # (Auto) 15.0 H (1.8-7.7) th/mm3 Lymph # (Auto) 0.4 L (1.0-4.8) th/mm3 Young # (Auto) 0.9 (0.0-0.9) th/mm3 Eos # (Auto) 0.0 (0.0-0.4) th/mm3 Baso # (Auto) 0.0 (0.0-0.2) th/mm3 WBC Differential . Differential Comment Auto diff final PT 168.0 H D (9.8-11.6) sec INR 16.9 H* Ratio APTT 144.5 H* (23.4-31.7) sec Sodium 135 L (136-145) meq/L Potassium 3.3 L (3.5-5.1) meq/L Chloride 93 L (98-107) meq/L Carbon Dioxide 35.5 H (21.0-32.0) meq/L Anion Gap 7 (5-15) meq/L BUN 7 (7-18) mg/dL Creatinine 0.38 L (0.50-1.00) mg/dL Estimated GFR Greater than 89 (>89) mL/min Random Glucose 133 H (74-106) mg/dL Calcium 8.9 (8.5-10.1) mg/dL Discharge Plan Discharge Disposition Patient Disposition: ED Admit(ED Internal Use Only) Discharge Condition Condition: Stable Discharge Order Discharge Orders: ED Use Only Admit Order (Routine); Ordered 03/12/18 Ordered By: Da Fairbanks Discharge Details Diagnosis: Coumadin toxicity, Bleeding Physicians Team ED Provider: Da Fairbanks Primary Care Provider: UNKNOWN, Rxs /Orders / Referrals /Forms Prescriptions: No Action amlodipine 5 mg Tablet 5 mg PO BID RF: 0 atorvastatin 40 mg Tablet 40 mg PO HS Qty: 30 RF: 0 sennosides-docusate sodium [Senna Plus] 8.6-50 mg Tablet 1 tab PO BID RF: 0 warfarin [Coumadin] 1 mg tablet 2 mg PO DAILY@1600 RF: 0 methadone 10 mg tablet 10 mg PO TID RF: 0 Discharge Interventions Interventions: Vital Signs Last Done: 03/12/18 11:12 Status ED Status: Admitted Patient
[2018-03-12 12:00] LABS: Baso % (Auto) 0.1 % (0.0-2.0); Eos % (Auto) 0.1 % (0.0-4.0); Hematocrit 29.1 % (35.0-46.0); Hemoglobin 9.9 gm/dL (11.6-15.3); Lymph # (Auto) 0.4 th/mm3 (1.0-4.8); Lymph % (Auto) 2.4 % (9.0-44.0); Mean Corpuscular HGB Conc 34.2 % (32.0-36.0); Mean Corpuscular Volume 99.4 fL (80.0-100.0); Mean Platelet Volume 7.4 fL (7.0-11.0); Mono # (Auto) 0.9 th/mm3 (0.0-0.9); Mono % (Auto) 5.7 % (0.0-8.0); Neut % (Auto) 91.7 % (16.0-70.0); Platelet Count 436 th/mm3 (150-450); Red Blood Count 2.92 mil/mm3 (4.00-5.30); Red Cell Distribution Width 13.9 % (11.6-17.2); White Blood Count 16.3 th/mm3 (4.0-11.0)
[2018-03-12 12:24] LABS: Anion Gap 7 meq/L (5-15); Blood Urea Nitrogen 7 mg/dL (7-18); Calcium 8.9 mg/dL (8.5-10.1); Carbon Dioxide 35.5 meq/L (21.0-32.0); Chloride 93 meq/L (98-107); Glomerular Filtration Rate Greater Than 89 mL/min (>89); Glucose,Random 133 mg/dL (74-106); Potassium 3.3 meq/L (3.5-5.1); Sodium 135 meq/L (136-145)
[2018-03-12] MEDS ORDERED: Thrombin Topical Soln 5,000 UNIT Vial TOPICAL ONE (13:09)
[2018-03-12] MEDS ORDERED: Lidocaine 2%/Epinephrine 1;100,000 Inj 50 ML Vial NERV BLOCK ONE (13:09)
[2018-03-12 13:39] LABS: INR 16.9 Ratio
[2018-03-12 13:40] LABS: Activated Partial Thrombo Time 144.5 sec (23.4-31.7)
[2018-03-12] MEDS ORDERED: Phytonadione 5 MG/SWFI 5 ML Oral Syringe PO ONE (14:20)
[2018-03-12] MEDS ORDERED: Acetaminophen 325 MG Tablet PO PRN ×2 (14:20→14:42)
[2018-03-12] MEDS ORDERED: Bisacodyl 10 MG Supp RECTAL PRN (14:42)
[2018-03-12] MEDS ORDERED: Sodium Chlor 0.9% Inj 250 ML IV.SIG SCH (15:00)
--- NOTE | 2018-03-12 15:12 | P.HPIM ---
History of Present Illness Primary Care Physician: UNKNOWN Chief Complaint: Oral bleeding, squamous cell carcinoma of throat History of Present Illness: 67-year-old female with a history of squamous cell carcinoma of the oropharynx, CVA, hypertension presents to the ER after she had an onset of bleeding in her mouth. She takes Coumadin to reduce her risk of CVA but recently started on a new palliative chemotherapy and her Coumadin has increased since it was last checked. She presents today with a supratherapeutic Coumadin level, INR is 16.9. ER physician has ordered fresh frozen plasma and a dose of vitamin K, both of which will likely need to be repeated following her evaluation with INR. She is currently under care of Dr. Sands for her oncological treatments. She is on modified hospice with [facility]. She denies any fevers, denies cough, denies any difficulty with respiration. She denies chest pain, denies arrhythmia. She denies any diarrhea or GI bleeding. She denies hematuria. Inpatient Certification Inpatient Certification: I certify that the inpatient services were ordered in accordance with Medicare regulations governing the order. This includes certification that hospital inpatient services are reasonable and necessary and in the case of services not specified as inpatient-only under 42 CFR 419.22(n), that they are appropriately provided as inpatient services in accordance to with the 2-midnight benchmark under 43 CFR 412.3(e) Estimated Total Length of Stay (Days): 3 Plans for Post Hospital Care: Hospice Review of Systems Review of Systems: all other systems reviewed are negative [facility] Medical History Medical History Anemia (Acute) CVA (cerebral vascular accident) (Acute) Hyperlipidemia (Acute) Hypertension (Acute) Osteoporosis (Acute) Retina disorder, right (Acute) Throat cancer (Acute) Surgical History Surgical History Hx of biopsy (Acute) Family History Family History Father Hypertension Diabetes Social History Social History Substance History: No History of Abuse Second Hand Smoke Exposure: No Smoking Status: Former smoker Tobacco Type: Cigarettes Packs Per Day: 1.5 Cigarettes Per Day: 30.0 Years Smoked: 30 Pack-Years: 45.00 How Often Do You Have a Drink Containing Alcohol: Never Recent Travel in [facility] within the Last 8 Weeks: No Recent Out of Country Travel within the Last 8 Weeks: No Immunization History Tetanus Immunization: Unsure Medications and Allergies Allergies Allergy/AdvReac Type Severity Reaction Status Date / Time No Known Allergies Allergy Verified 03/12/18 11:08 Home Medications Medication Instructions Recorded Confirmed Type amlodipine 5 mg PO BID 09/30/17 03/12/18 History warfarin [Coumadin] 2 mg PO DAILY@1600 01/18/18 03/12/18 History methadone 10 mg PO TID 03/12/18 03/12/18 History Active Medications: Active Medications Acetaminophen (Tylenol) 650 mg PO Q4H PRN PRN Reason: SEE LABEL COMMENTS Acetaminophen (Tylenol) 650 mg PO Q4H PRN PRN Reason: Temp > 100.4 Al Hydroxide/Mg Hydroxide (Milk Of Magnesia Liq) 30 ml PO Q12H PRN PRN Reason: Mild Constipation Amlodipine Besylate (Norvasc) 5 mg PO BID ANA[facility] Bisacodyl (Dulcolax Supp) 10 mg RECTAL DAILY PRN PRN Reason: SEVERE CONSITIPATION Diphenhydramine HCl (Benadryl) 25 mg PO Q4H PRN PRN Reason: SEE LABEL COMMENTS Sodium Chloride (Ns Inj) 250 mls @ 15 mls/hr IV.SIG ONCE ANAIS Stop: 03/13/18 07:39 Lactulose (Lactulose Liq) 30 ml PO DAILY PRN PRN Reason: SEVERE CONSITIPATION Methadone HCl (Dolophine) 10 mg PO TID ANAIS Ondansetron HCl (Zofran Inj) 4 mg IV.PUSH Q6H PRN PRN Reason: NAUSEA OR VOMITING Senna/Docusate Sodium (Casi-Colace) 1 tab PO BID [facility] Sennosides (Senokot) 17.2 mg PO Q12H PRN PRN Reason: Moderate Constipation Sodium Chloride (Ns Flush) 2 ml IV.FLUSH BID [facility] Sodium Chloride (Ns Flush) 2 ml IV.FLUSH PRN PRN PRN Reason: FLUSH AFTER USING IV ACCESS Physical Exam Vital signs: Last Vital Signs Temp 98.0 F 03/12/18 11:08 Pulse 103 H 03/12/18 11:12 Resp 20 03/12/18 11:12 BP 126/59 L 03/12/18 11:12 Pulse Ox 94 L 03/12/18 11:12 Intake & Output 03/10/18 03/11/18 03/12/18 03/13/18 06:59 06:59 06:59 06:59 Weight 54.431 kg Narrative: GENERAL: AAOx3, no acute distress, thin, generally weak SKIN: Warm and dry, no rashes. HEAD: Atraumatic. Normocephalic. EYES: Pupils equal, round, reactive to light. No scleral icterus. No injection or drainage. ENT: Red lips from blood, drip of blood leaking from edge of left mouth, not has smeared blood all over town and gums, left oropharynx shows necrotic squamous cell carcinoma NECK: Trachea midline. No JVD. Thyroid size within normal limits. CARDIOVASCULAR: Borderline tachycardia. No murmur, no gallops, no rubs. RESPIRATORY: Clear and equal to auscultation bilaterally. No crackles, no wheezes. No accessory muscle use. GASTROINTESTINAL: Abdomen soft, non-tender, nondistended, normal active bowel sounds. Hepatic and splenic margins not palpable. MUSCULOSKELETAL: Extremities without clubbing or cyanosis. No obvious deformities. No edema. NEUROLOGICAL: Awake and alert. No obvious cranial nerve deficits. Motor grossly within normal limits. No focal deficits. Five out of 5 muscle strength in the arms and legs. Normal speech. PSYCHIATRIC: Appropriate mood and affect; insight and judgment normal. Results Labs CBC & Chem 7: 03/12/18 11:35 03/12/18 11:35 Caprini VTE Risk Assessment Caprini VTE Risk Assessment: Moderate/High Risk (score >= 2) Caprini Risk Assessment Model: Point Value = 1 Point Value = 2 Point Value = 3 Point Value = 5 Age 41-60 Minor surgery BMI > 25 kg/m2 Swollen legs Varicose veins or History of unexplained or recurrent spontaneous Oral contraceptives or hormone replacement Sepsis (< 1 month) Serious lung disease, including pneumonia (< 1 month) Abnormal pulmonary function Acute myocardial infarction Congestive heart failure (< 1 month) History of inflammatory bowel disease Medical patient at bed rest Age 61-74 Arthroscopic surgery Major open surgery (> 45 min) Laparoscopic surgery (> 45 min) Malignancy Confined to bed (> 72 hours) Immobilizing plaster cast Central venous access Age >= 75 History of VTE Family history of VTE Factor V Leiden Prothrombin [id number] Lupus anticoagulant Anticardiolipin antibodies Elevated serum homocysteine Heparin-induced thrombocytopenia Other congenital or acquired thrombophilia Stroke (< 1 month) Elective arthroplasty Hip, pelvis, or leg fracture Acute spinal cord injury (< 1 month) Prophylaxis Regimen: Total Risk Factor Score Risk Level Prophylaxis Regimen 0-1 Low Early ambulation 2 Moderate Order ONE of the following: *Sequential Compression Device (SCD) *Heparin 5000 units SQ BID 3-4 Higher Order ONE of the following medications: *Heparin 5000 units SQ TID *Enoxaparin/Lovenox 40 mg SQ daily (WT < 150 kg, CrCl > 30 mL/min) *Enoxaparin/Lovenox 30 mg SQ daily (WT < 150 kg, CrCl > 10-29 mL/min) *Enoxaparin/Lovenox 30 mg SQ BID (WT < 150 kg, CrCl > 30 mL/min) AND/OR *Sequential Compression Device (SCD) 5 or more Highest Order ONE of the following medications: *Heparin 5000 units SQ TID (Preferred with Epidurals) *Enoxaparin/Lovenox 40 mg SQ daily (WT < 150 kg, CrCl > 30 mL/min) *Enoxaparin/Lovenox 30 mg SQ daily (WT < 150 kg, CrCl > 10-29 mL/min) *Enoxaparin/Lovenox 30 mg SQ BID (WT < 150 kg, CrCl > 30 mL/min) AND *Sequential Compression Device (SCD) Assessment and Plan Plan Supratherapeutic INR Patient is on Coumadin, recently started on new chemotherapy, now presents with INR of 16.9 Coumadin is held, fresh frozen plasma and vitamin K are ordered Follow-up INR level in the morning and repeat vitamin K and FFP as needed Close monitoring on telemetry Squamous cell carcinoma of oropharynx Patient is under palliative chemotherapy with Dr. Sands She is also managed under modified hospice with [facility] Continue current doses of methadone Oncology consult h/o CVA Patient is on Coumadin to reduce risk Coumadin is supratherapeutic, held Weigh risks versus benefit prior to discharge DVT prophylaxis Patient is at high risk of bleeding due to supratherapeutic INR, no extra measures at this point
[2018-03-12] MEDS: Methadone 10 MG Tablet PO SCH (18:04)
[2018-03-12] MEDS: Senna/Docusate Sodium 8.6/50 MG Tablet PO SCH (21:11)
[2018-03-12] MEDS: amLODIPine 5 MG Tablet PO SCH (21:14)
--- NOTE | 2018-03-13 08:02 | P.PNIM ---
Subjective Interval history: Follow-up oral bleeding and coagulopathy. She is "okay". No active bleeding. She wants to go home. Physical Exam Vital signs: Last Vital Signs Temp 98.4 F 03/13/18 04:00 Pulse 77 03/13/18 04:05 Resp 19 03/13/18 04:00 BP 141/74 H 03/13/18 04:00 Pulse Ox 90 L 03/13/18 04:00 Intake & Output 03/11/18 03/12/18 03/13/18 03/14/18 06:59 06:59 06:59 06:59 Intake Total 414 / 414 Balance 414 / 414 Weight 28.2 kg Narrative: GENERAL: AAOx3, no acute distress, thin, generally weak SKIN: Warm and dry, no rashes. ENT:No active bleeding CARDIOVASCULAR: Borderline tachycardia. No murmur, no gallops, no rubs. RESPIRATORY: Clear and equal to auscultation bilaterally. No crackles, no wheezes. No accessory muscle use. GASTROINTESTINAL: Abdomen soft, non-tender, nondistended, normal active bowel sounds. MUSCULOSKELETAL: Extremities without clubbing or cyanosis. No obvious deformities. No edema. NEUROLOGICAL: Awake and alert. No obvious cranial nerve deficits. Motor grossly within normal limits. No focal deficits. Five out of 5 muscle strength in the arms and legs. Normal speech. PSYCHIATRIC: Appropriate mood and affect; insight and judgment normal. Results Labs CBC & Chem 7: 03/12/18 11:35 03/12/18 11:35 Assessment and Plan Plan Supratherapeutic INR. Resolving Patient is on Coumadin, recently started on new chemotherapy, now presents with INR of 16.9 Coumadin is held, fresh frozen plasma and vitamin K given Follow-up INR level in the morning 1.9, repeat vitamin K and FFP as needed Close monitoring on telemetry Squamous cell carcinoma of oropharynx Patient is under palliative chemotherapy with Dr. Sands She is also managed under modified hospice with [facility] Continue current doses of methadone Oncology consult h/o CVA Patient is on Coumadin to reduce risk Coumadin is supratherapeutic, held Weigh risks versus benefit prior to discharge DVT prophylaxis Patient is at high risk of bleeding due to supratherapeutic INR, no extra measures at this point Possible discharge when cleared by oncology Discharge patient to home Condition on discharge: Improved Regular Diet as tolerated Ad Saadia activity Rx written: none Follow-up with primary care physician and Onc Progress Note: Quality VTE Deep Vein Thrombosis/Pulmonary Embolism Present on Admission: No
[2018-03-13] MEDS: amLODIPine 5 MG Tablet PO SCH ×2 (09:31→22:22)
[2018-03-13] MEDS: Methadone 10 MG Tablet PO SCH ×3 (09:31→17:35)
[2018-03-13] MEDS: Senna/Docusate Sodium 8.6/50 MG Tablet PO SCH ×2 (09:32→22:22)
[2018-03-13 10:01] LABS: INR 1.9 Ratio; Prothrombin Time 19.7 sec (9.8-11.6)
[2018-03-13] MEDS: KCL 20 mEq/D5W/NaCl 0.45% Inj 1,000 ML IV.CONT SCH (13:45)
[2018-03-13 13:47] LABS: Baso % (Auto) 0.1 % (0.0-2.0); Hematocrit 27.3 % (35.0-46.0); Hemoglobin 9.4 gm/dL (11.6-15.3); Lymph # (Auto) 0.4 th/mm3 (1.0-4.8); Lymph % (Auto) 2.5 % (9.0-44.0); Mean Corpuscular HGB Conc 34.3 % (32.0-36.0); Mean Platelet Volume 7.5 fL (7.0-11.0); Mono # (Auto) 0.7 th/mm3 (0.0-0.9); Mono % (Auto) 4.5 % (0.0-8.0); Neut # (Auto) 15.6 th/mm3 (1.8-7.7); Neut % (Auto) 92.9 % (16.0-70.0); Platelet Count 395 th/mm3 (150-450); Red Blood Count 2.76 mil/mm3 (4.00-5.30); Red Cell Distribution Width 13.8 % (11.6-17.2); White Blood Count 16.7 th/mm3 (4.0-11.0)
--- NOTE | 2018-03-13 13:57 | P.CON ---
History of Present Illness Service: oncology Consult date: 03/13/18 Primary Care Provider: UNKNOWN Chief Complaint: Oral bleeding, squamous cell carcinoma of throat History of Present Illness: is a 67 year old ladyw ith a histoyr of CVA and head and neck cancer who follows in clinic with my colleague Dr. Sands. She has received definitive radiation therapy for head and neck cancer. She had recurrent disease and has been receiving nivolumab therapy. Her treatment course is complicated by FFT, dysphagia, PEG tube placement. She is on modified hospice with [facility]. She is admitted to the hospital with oral bleeding. INR on admission is 16.9. Majority of patient information obtained from chart review and discussion with attending physician Dr. Carpenter. Patient has poor recent and remote memory, poor insight into her disease. She defers all medical decisions to her daughter. Review of Systems All other systems reviewed negative except as stated in HPI PMFSH - History History Provided By: Patient, Medical Record - Medical History Medical History: Medical History (Last Reviewed 03/13/18 @ 13:53 by Usha Zuniga) Anemia CVA (cerebral vascular accident) Hyperlipidemia Hypertension Osteoporosis Retina disorder, right Throat cancer - Surgical History Surgical History: Surgical History (Last Reviewed 03/13/18 @ 13:53 by Usha Zuniga) Hx of biopsy - Family History Family History: Family History (Last Reviewed 03/13/18 @ 13:53 by Usha Zuniga) Father Hypertension Diabetes - Social History I have reviewed the patient's Social History: Yes - Tobacco History Second Hand Smoke Exposure: No Tobacco Use In Past 30 Days: No Smoking Status: Former smoker Tobacco Type: Cigarettes Packs Per Day: 1.5 Years Smoked: 30 - Alcohol History How Often Do You Have a Drink Containing Alcohol: Never - Substance Use History Substance History: No History of Abuse - Travel History Recent Travel in the [place] Within the Last 8 Weeks: No Recent Travel Out of the Country Within the Last 8 Weeks: No - Immunization History Tetanus Immunization: >5 Years Hx Influenza Vaccine This Season: No Medications and Allergies Active Medications: Active Medications Acetaminophen (Tylenol) 650 mg PO Q4H PRN PRN Reason: SEE LABEL COMMENTS Last Admin: 03/12/18 21:04 Dose: 650 mg Acetaminophen (Tylenol) 650 mg PO Q4H PRN PRN Reason: Temp > 100.4 Hydrocodone Bitart/Acetaminophen (Hycet 325/7.5 Mg Liq) 15 ml PO Q4H PRN PRN Reason: Pain 1-10 Al Hydroxide/Mg Hydroxide (Milk Of Magnesia Liq) 30 ml PO Q12H PRN PRN Reason: Mild Constipation Amlodipine Besylate (Norvasc) 5 mg PO BID [facility] Last Admin: 03/13/18 09:31 Dose: 5 mg Bisacodyl (Dulcolax Supp) 10 mg RECTAL DAILY PRN PRN Reason: SEVERE CONSITIPATION Diphenhydramine HCl (Benadryl) 25 mg PO Q4H PRN PRN Reason: SEE LABEL COMMENTS Last Admin: 03/12/18 21:04 Dose: 25 mg Potassium Chloride/Dextrose/Sod Cl (D5w/1/2ns + Kcl 20 Meq Inj) 1,000 mls @ 30 mls/hr IV.CONT .Q24H [facility] Lactulose (Lactulose Liq) 30 ml PO DAILY PRN PRN Reason: SEVERE CONSITIPATION Methadone HCl (Dolophine) 10 mg PO TID [facility] Last Admin: 03/13/18 12:26 Dose: 10 mg Ondansetron HCl (Zofran Inj) 4 mg IV.PUSH Q6H PRN PRN Reason: NAUSEA OR VOMITING Senna/Docusate Sodium (Casi-Colace) 1 tab PO BID [facility] Last Admin: 03/13/18 09:32 Dose: Not Given Sennosides (Senokot) 17.2 mg PO Q12H PRN PRN Reason: Moderate Constipation Sodium Chloride (Ns Flush) 2 ml IV.FLUSH BID [facility] Last Admin: 03/13/18 09:32 Dose: 2 ml Sodium Chloride (Ns Flush) 2 ml IV.FLUSH PRN PRN PRN Reason: FLUSH AFTER USING IV ACCESS Allergies Allergy/AdvReac Type Severity Reaction Status Date / Time No Known Allergies Allergy Verified 03/12/18 11:08 Home Medications Medication Instructions Recorded Confirmed Type amlodipine 5 mg PO BID 09/30/17 03/12/18 History warfarin [Coumadin] 2 mg PO DAILY@1600 01/18/18 03/12/18 History methadone 10 mg PO TID 03/12/18 03/12/18 History food supplemt, lactose-reduced 240 ml FEEDING TUBE TID 03/13/18 03/13/18 History [Ensure] hydrocodone-acetaminophen 15 ml PO Q4H PRN 03/13/18 03/13/18 History Physical Exam Vital signs: Vital Signs 03/12/18 16:30 03/12/18 17:54 03/12/18 20:00 Temperature 99.0 F 97.5 F L Pulse Rate 73 88 115 H Respiratory Rate 18 16 18 Blood Pressure 139/61 129/61 143/63 H Pulse Oximetry 92 L 92 L 91 L 03/12/18 20:21 03/12/18 21:18 03/12/18 22:30 Temperature 97.5 F L 98.6 F 98.7 F Pulse Rate 114 H 93 H 79 Respiratory Rate 18 15 16 Blood Pressure 143/63 H 121/57 L 118/57 L Pulse Oximetry 91 L 95 95 03/12/18 22:43 03/13/18 00:00 03/13/18 04:00 Temperature 99.7 F H 99.5 F 98.4 F Pulse Rate 81 96 H 116 H Respiratory Rate 17 18 19 Blood Pressure 116/56 L 102/55 L 141/74 H Pulse Oximetry 98 94 L 90 L 03/13/18 04:05 03/13/18 08:00 03/13/18 12:00 Temperature 97.4 F L 99.7 F H Pulse Rate 77 93 H 93 H Respiratory Rate 20 18 Blood Pressure 152/66 H 125/60 Pulse Oximetry 93 L 96 Intake & Output 03/12/18 03/13/18 03/13/18 18:59 06:59 18:59 Intake Total 414 / 414 100 / 100 Balance 414 / 414 100 / 100 Weight 28.2 kg 28.2 kg Intake: IV 100 / 100 NS Inj 250 ML @ 15 mls/hr IV. 100 / 100 SIG ONCE ANASI Rx#:[id number] Intake (Blood Product) Amt 414 / 414 Plasma Thawed 5 Day Acda Unit 219 / 219 [id number] Plasma Thawed 5 Day Cp2d Unit 195 / 195 [id number] Other: # Voids 1 3 Date of Last Bowel Movement 03/11/18 Weight On Admission 28.2 kg - Constitutional no acute distress, thin, cachectic, chronically ill appearing - Routine HEENT Exam Head: Present: normocephalic, atraumatic Comments: blood presents around mouth - Routine Neck Exam Present: supple - Routine Respiratory Exam Present: CTA bilaterally - Routine Cardiovascular Exam Present: RRR, S1, S2 - Routine Abdominal Exam Present: soft - Routine Extremities Exam Comments: No edema - Routine Skin Exam Present: intact - Routine Neurological Exam Present: alert - Routine Psychiatric Exam Comments: poor insight, poor memory Results - Labs CBC & Chem 7: 03/13/18 11:57 03/12/18 11:35 Labs: Laboratory Results - last 24 hr 03/12/18 03/13/18 03/13/18 15:12 07:36 11:57 WBC 16.7 H RBC 2.76 L Hgb 9.4 L Hct 27.3 L MCV 99.0 MCH 34.0 MCHC 34.3 RDW 13.8 Plt Count 395 MPV 7.5 Neut % (Auto) 92.9 H Lymph % (Auto) 2.5 L Lassen % (Auto) 4.5 Eos % (Auto) 0.0 Baso % (Auto) 0.1 Neut # (Auto) 15.6 H Lymph # (Auto) 0.4 L Lassen # (Auto) 0.7 Eos # (Auto) 0.0 Baso # (Auto) 0.0 WBC Differential . Differential Comment Auto diff final PT 19.7 H D INR 1.9 Blood Bank Comment Assessment and Plan - Plan Recurrent head and neck cancer: receiving nivolumab therapy. On modified hospice with [facility]. Poor performance status. Supratherapeutic INR with bleeding from tumor. Improved with reversal of INR. past CVA: on warfarin therapy. RIsks vs benfits of continued anticoagulation in light of past stroke, incurable cancer, poor nutritional status, poor performance status. ATtempted to disucss case with her daughter Skye. Unable to reach her via telephone.
[2018-03-13 14:06] LABS: Anion Gap 9 meq/L (5-15); Blood Urea Nitrogen 11 mg/dL (7-18); Calcium 9.1 mg/dL (8.5-10.1); Carbon Dioxide 34.8 meq/L (21.0-32.0); Chloride 93 meq/L (98-107); Glomerular Filtration Rate Greater Than 89 mL/min (>89); Glucose,Random 82 mg/dL (74-106); Magnesium 2.3 mg/dL (1.5-2.5); Potassium 3.7 meq/L (3.5-5.1); Sodium 137 meq/L (136-145)
[2018-03-13 21:24] LABS: ABG Base Excess 8.9 mmol/L (-2-2); ABG PCO2 49 mmHg (38-42); ABG PO2 96 mmHg (61-120)
--- NOTE | 2018-03-13 21:27 | XR ---
EXAM DATE: 03/13/2018 9:19 PM EST AGE/SEX: 67 years / Female INDICATIONS: Shortness of breath. CLINICAL DATA: This is the patient's subsequent encounter. Patient reports that signs and symptoms h ave been present for 1 week and indicates a pain score of 0/10. MEDICAL/SURGICAL HISTORY: . Hypertension. Osteoporosis. Throat cancer . Infusaport. . COMPARISON: [facility] – [place], CHEST EXPIRATION ONLY, 02/03/2018. . FINDINGS: Bibasilar patchiness is noted consistent with probable pneumonia. Underlying emphysematous changes ar e noted bilaterally. The heart is stable. Right internal jugular [id number] has its tip in the sup erior vena cava. CONCLUSION: 1. Bibasilar patchiness consistent with probable pneumonia. 2. Emphysematous changes bilaterally. Electronically signed by: Frankie Gross MD Board Certified Radiologist 03/13/2018 9:26 PM EST
[2018-03-14 03:44] LABS: ABG PCO2 48 mmHg (38-42); ABG PO2 118 mmHg (61-120)
[2018-03-14] MEDS ORDERED: Vancomycin Consult Pharmacy OTHER PRN (03:54)
[2018-03-14] MEDS ORDERED: Vancomycin Inj 1,000 MG in Sodium Chlor 0.9% Inj 250 ML IV.SIG ONE (03:55)
--- NOTE | 2018-03-14 04:01 | P.EN ---
Throughout the night patient became increasingly somnolent had a decrease in saturation, ABG was completed and showed a pH of 7.44, CO2 of 49, patient has increased from nasal cannula at 2 L to a simple mask at 9 L. Patient has been unable to be weaned off of the simple mask. Chest x-ray completed that showed probable pneumonia with bibasilar patchiness. It was decided to place patient on BiPAP and transfer to [facility] for closer monitoring. Patient will be treated for Hospital-acquired pneumonia -Vancomycin and zosyn IV -duo nebs -incentive spirometer ordered -labs in a.m.
[2018-03-14] MEDS: Piperacil/Tazo 3.375 GM Premix 3.375 GM/50 ML PIGGYBACK IV.SIG SCH ×4 (04:25→22:16)
[2018-03-14 07:37] LABS: Baso % (Auto) 0.1 % (0.0-2.0); Hematocrit 25.8 % (35.0-46.0); Hemoglobin 8.8 gm/dL (11.6-15.3); Lymph # (Auto) 0.3 th/mm3 (1.0-4.8); Lymph % (Auto) 1.6 % (9.0-44.0); Mean Corpuscular HGB Conc 34.1 % (32.0-36.0); Mean Corpuscular Hemoglobin 33.2 pg (27.0-34.0); Mean Corpuscular Volume 97.4 fL (80.0-100.0); Mean Platelet Volume 7.6 fL (7.0-11.0); Mono % (Auto) 5.5 % (0.0-8.0); Neut # (Auto) 16.2 th/mm3 (1.8-7.7); Neut % (Auto) 92.8 % (16.0-70.0); Platelet Count 369 th/mm3 (150-450); Red Blood Count 2.65 mil/mm3 (4.00-5.30); Red Cell Distribution Width 13.9 % (11.6-17.2); White Blood Count 17.4 th/mm3 (4.0-11.0)
[2018-03-14 07:50] LABS: INR 1.7 Ratio; Prothrombin Time 17.1 sec (9.8-11.6)
[2018-03-14 08:03] LABS: Anion Gap 7 meq/L (5-15); Blood Urea Nitrogen 15 mg/dL (7-18); Calcium 8.9 mg/dL (8.5-10.1); Carbon Dioxide 35.1 meq/L (21.0-32.0); Chloride 94 meq/L (98-107); Glomerular Filtration Rate Greater Than 89 mL/min (>89); Glucose,Random 172 mg/dL (74-106); Potassium 3.2 meq/L (3.5-5.1); Sodium 136 meq/L (136-145)
[2018-03-14] MEDS: Methadone 10 MG Tablet PO SCH ×4 (11:06→20:36)
[2018-03-14] MEDS: Senna/Docusate Sodium 8.6/50 MG Tablet PO SCH ×2 (11:07→20:26)
[2018-03-14] MEDS: amLODIPine 5 MG Tablet PO SCH ×2 (11:07→20:26)
--- NOTE | 2018-03-14 13:07 | P.PN ---
Subjective Interval history: Follow-up [place] carcinoma of the oropharynx/healthcare associated pneumonia March 14, 2018-patient seen and examined at bedside. Overnight patient was transferred to CICU and initially started on IV antibiotic for HCAP; however due to respiratory failure she was transferred up to [facility] and placed on BiPAP. This a.m., patient's family member very upset regarding the aggressive treatment patient has been receiving. They also want [facility] to be consulted. There is no more episode of bleeding. INR now therapeutic. Physical Exam Vital signs: Vital Signs 03/13/18 16:00 03/13/18 19:12 03/13/18 20:00 Temperature 100.1 F H 98.0 F Pulse Rate 106 H 78 89 Respiratory Rate 18 24 Blood Pressure 131/67 132/58 L Pulse Oximetry 93 L 83 L 03/13/18 21:34 03/14/18 00:00 03/14/18 03:24 Temperature 99.6 F Pulse Rate 125 H 101 H 115 H Respiratory Rate 20 20 24 Blood Pressure 124/56 L Pulse Oximetry 94 L 94 L 03/14/18 04:00 03/14/18 04:21 03/14/18 07:30 Temperature 98.9 F 98.6 F Pulse Rate 90 98 H Respiratory Rate 22 24 Blood Pressure 134/64 125/65 Pulse Oximetry 93 L 99 96 03/14/18 08:00 03/14/18 09:13 03/14/18 09:25 Temperature 98.6 F Pulse Rate 103 H 80 Respiratory Rate 30 H 13 Blood Pressure 127/58 L Pulse Oximetry 96 98 03/14/18 10:00 03/14/18 11:47 03/14/18 12:00 Temperature 98.7 F Pulse Rate 103 H 73 Respiratory Rate 22 35 H Blood Pressure 99/51 L Pulse Oximetry 96 Intake & Output 03/13/18 03/14/18 03/14/18 18:59 06:59 18:59 Intake Total 1080 / 1080 290 / 290 150 / 150 Balance 1080 / 1080 290 / 290 150 / 150 Weight 28.2 kg Intake: IV 100 / 100 50 / 50 150 / 150 Zosyn 3.375 GM Premix 3.375 gm 50 / 50 50 / 50 In 50 ml @ 100 mls/hr IV.SIG Q6H [facility] Rx#:[id number] NS Inj 250 ML @ 15 mls/hr IV. 100 / 100 SIG ONCE [facility] Rx#:[id number] Vancomycin Inj 500 MG In NS Inj 100 / 100 100 ML @ 200 mls/hr IV.SIG Q12H [facility] Rx#:[id number] Oral 740 / 740 Tube Feeding 240 / 240 240 / 240 Other: # Voids 3 1 Date of Last Bowel Movement 03/11/18 # Bowel Movements 1 Narrative: GENERAL: Very sick looking female SKIN: Warm and dry. HEAD: Normocephalic. EYES: No scleral icterus. No injection or drainage. NECK: Supple, trachea midline. No JVD or lymphadenopathy. CARDIOVASCULAR: Regular rate and rhythm without murmurs, gallops, or rubs. RESPIRATORY: Breath sounds decrease bilaterally. No accessory muscle use. GASTROINTESTINAL: Abdomen soft, non-tender, nondistended. MUSCULOSKELETAL: No cyanosis, or edema. BACK: Nontender without obvious deformity. No CVA tenderness. Results - Labs CBC & Chem 7: 03/14/18 06:51 03/14/18 06:51 Laboratory Results - last 24 hr 03/13/18 03/13/18 03/13/18 11:57 11:57 21:05 WBC 16.7 H RBC 2.76 L Hgb 9.4 L Hct 27.3 L MCV 99.0 MCH 34.0 MCHC 34.3 RDW 13.8 Plt Count 395 MPV 7.5 Neut % (Auto) 92.9 H Lymph % (Auto) 2.5 L [place] % (Auto) 4.5 Eos % (Auto) 0.0 Baso % (Auto) 0.1 Neut # (Auto) 15.6 H Lymph # (Auto) 0.4 L [place] # (Auto) 0.7 Eos # (Auto) 0.0 Baso # (Auto) 0.0 WBC Differential . Differential Comment Auto diff final PT INR Puncture Site Right radial Patient Temperature 98.6 O2 Saturation 94 ABG pH 7.44 H ABG pCO2 49 H ABG pO2 96 ABG HCO3 33 H ABG O2 Content 14.0 ABG Base Excess 8.9 H ABG Methemoglobin 1.2 Jason Test Present Hemoglobin 10.4 L Carboxyhemoglobin 1.6 O2 Delivery Device Simple mask Liter Flow 9.00 Critical Value No Sodium 137 Potassium 3.7 Chloride 93 L Carbon Dioxide 34.8 H Anion Gap 9 BUN 11 Creatinine 0.35 L Estimated GFR Greater than 89 Random Glucose 82 Calcium 9.1 Magnesium 2.3 03/14/18 03/14/18 03/14/18 03:32 06:51 06:51 WBC 17.4 H RBC 2.65 L Hgb 8.8 L Hct 25.8 L MCV 97.4 MCH 33.2 MCHC 34.1 RDW 13.9 Plt Count 369 MPV 7.6 Neut % (Auto) 92.8 H Lymph % (Auto) 1.6 L [place] % (Auto) 5.5 Eos % (Auto) 0.0 Baso % (Auto) 0.1 Neut # (Auto) 16.2 H Lymph # (Auto) 0.3 L [place] # (Auto) 1.0 H Eos # (Auto) 0.0 Baso # (Auto) 0.0 WBC Differential . Differential Comment Auto diff final PT 17.1 H INR 1.7 Puncture Site Right radial Patient Temperature 98.6 O2 Saturation 96 ABG pH 7.48 H ABG pCO2 48 H ABG pO2 118 ABG HCO3 35 H ABG O2 Content 15.6 ABG Base Excess 11.0 H ABG Methemoglobin 1.2 Jason Test Present Hemoglobin 11.4 L Carboxyhemoglobin 1.0 O2 Delivery Device Simple mask Liter Flow 9.00 Critical Value No Sodium Potassium Chloride Carbon Dioxide Anion Gap BUN Creatinine Estimated GFR Random Glucose Calcium Magnesium 03/14/18 06:51 WBC RBC Hgb Hct MCV MCH MCHC RDW Plt Count MPV Neut % (Auto) Lymph % (Auto) [place] % (Auto) Eos % (Auto) Baso % (Auto) Neut # (Auto) Lymph # (Auto) [place] # (Auto) Eos # (Auto) Baso # (Auto) WBC Differential Differential Comment PT INR Puncture Site Patient Temperature O2 Saturation ABG pH ABG pCO2 ABG pO2 ABG HCO3 ABG O2 Content ABG Base Excess ABG Methemoglobin Jason Test Hemoglobin Carboxyhemoglobin O2 Delivery Device Liter Flow Critical Value Sodium 136 Potassium 3.2 L Chloride 94 L Carbon Dioxide 35.1 H Anion Gap 7 BUN 15 Creatinine 0.47 L Estimated GFR Greater than 89 Random Glucose 172 H Calcium 8.9 Magnesium - Imaging Impressions Chest X-Ray 03/13/18 21:01 CONCLUSION: 1. Bibasilar patchiness consistent with probable pneumonia. 2. Emphysematous changes bilaterally. Assessment and Plan - Plan 67-year-old female with Supratherapeutic INR Now resolved status post treatment with FFP and vitamin K History of squamous cell carcinoma of the oropharynx Management per oncology Patient is currently established with [facility] hospice HCAP with respiratory failure Patient was started on IV Zosyn and vancomycin overnight Currently on BiPAP, however family members does not want her to have any aggressive treatment, therefore BiPAP will be DC History of CVA Coumadin on hold secondary to supratherapeutic, however with patient's declining health will advised to discontinue Coumadin Poor prognosis Will consult hospice. Case was discussed with family members
--- NOTE | 2018-03-14 15:24 | P.PNONC ---
Subjective Interval history: Patient subscribed to [facility] hosp[facility]. Apparently they are taking care of her for her stroke and not her cancer. No PT/INR was done. Fetus was aware that she was on Diflucan for oral thrush. Consequently patient was admitted with supratherapeutic INR. She had complications of bleeding which did not stop until last night. Her course was further complicated by hypoxia and possible aspiration pneumonia. Patient reports she is unable to see. 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 Daughter was called who actually reports patient was doing well at home. She was doing well with feeding tube. She had some increased pain in the mouth. This improved with the increase in methadone 10 mg 3 times daily. Objective Vital Signs/Intake & Output: Vital Signs 03/13/18 16:00 03/13/18 19:12 03/13/18 20:00 Temperature 100.1 F H 98.0 F Pulse Rate 106 H 78 89 Respiratory Rate 18 24 Blood Pressure 131/67 132/58 L Pulse Oximetry 93 L 83 L 03/13/18 21:34 03/14/18 00:00 03/14/18 03:24 Temperature 99.6 F Pulse Rate 125 H 101 H 115 H Respiratory Rate 20 20 24 Blood Pressure 124/56 L Pulse Oximetry 94 L 94 L 03/14/18 04:00 03/14/18 04:21 03/14/18 07:30 Temperature 98.9 F 98.6 F Pulse Rate 90 98 H Respiratory Rate 22 24 Blood Pressure 134/64 125/65 Pulse Oximetry 93 L 99 96 03/14/18 08:00 03/14/18 09:13 03/14/18 09:25 Temperature 98.6 F Pulse Rate 103 H 80 Respiratory Rate 30 H 13 Blood Pressure 127/58 L Pulse Oximetry 96 98 03/14/18 10:00 03/14/18 11:47 03/14/18 12:00 Temperature 98.7 F Pulse Rate 103 H 73 Respiratory Rate 22 35 H Blood Pressure 99/51 L Pulse Oximetry 96 03/14/18 14:00 Temperature Pulse Rate 87 Respiratory Rate Blood Pressure Pulse Oximetry Intake & Output 03/13/18 03/14/18 03/14/18 18:59 06:59 18:59 Intake Total 1080 / 1080 290 / 290 150 / 150 Balance 1080 / 1080 290 / 290 150 / 150 Weight 28.2 kg Intake: IV 100 / 100 50 / 50 150 / 150 Zosyn 3.375 GM Premix 3.375 gm 50 / 50 50 / 50 In 50 ml @ 100 mls/hr IV.SIG Q6H [facility] Rx#:[id number] NS Inj 250 ML @ 15 mls/hr IV. 100 / 100 SIG ONCE [facility] Rx#:[id number] Vancomycin Inj 500 MG In NS Inj 100 / 100 100 ML @ 200 mls/hr IV.SIG Q12H [facility] Rx#:[id number] Oral 740 / 740 Tube Feeding 240 / 240 240 / 240 Other: # Voids 3 1 Date of Last Bowel Movement 03/11/18 # Bowel Movements 1 Result Diagrams: 03/14/18 06:51 03/14/18 06:51 Laboratory Results: Laboratory Results - last 24 hr 03/13/18 03/14/18 03/14/18 21:05 03:32 06:51 WBC RBC Hgb Hct MCV MCH MCHC RDW Plt Count MPV Neut % (Auto) Lymph % (Auto) [place] % (Auto) Eos % (Auto) Baso % (Auto) Neut # (Auto) Lymph # (Auto) [place] # (Auto) Eos # (Auto) Baso # (Auto) WBC Differential Differential Comment PT 17.1 H INR 1.7 Puncture Site Right radial Right radial Patient Temperature 98.6 98.6 O2 Saturation 94 96 ABG pH 7.44 H 7.48 H ABG pCO2 49 H 48 H ABG pO2 96 118 ABG HCO3 33 H 35 H ABG O2 Content 14.0 15.6 ABG Base Excess 8.9 H 11.0 H ABG Methemoglobin 1.2 1.2 Jason Test Present Present Hemoglobin 10.4 L 11.4 L Carboxyhemoglobin 1.6 1.0 O2 Delivery Device Simple mask Simple mask Liter Flow 9.00 9.00 Critical Value No No Sodium Potassium Chloride Carbon Dioxide Anion Gap BUN Creatinine Estimated GFR Random Glucose Calcium 03/14/18 03/14/18 06:51 06:51 WBC 17.4 H RBC 2.65 L Hgb 8.8 L Hct 25.8 L MCV 97.4 MCH 33.2 MCHC 34.1 RDW 13.9 Plt Count 369 MPV 7.6 Neut % (Auto) 92.8 H Lymph % (Auto) 1.6 L [place] % (Auto) 5.5 Eos % (Auto) 0.0 Baso % (Auto) 0.1 Neut # (Auto) 16.2 H Lymph # (Auto) 0.3 L [place] # (Auto) 1.0 H Eos # (Auto) 0.0 Baso # (Auto) 0.0 WBC Differential . Differential Comment Auto diff final PT INR Puncture Site Patient Temperature O2 Saturation ABG pH ABG pCO2 ABG pO2 ABG HCO3 ABG O2 Content ABG Base Excess ABG Methemoglobin Jason Test Hemoglobin Carboxyhemoglobin O2 Delivery Device Liter Flow Critical Value Sodium 136 Potassium 3.2 L Chloride 94 L Carbon Dioxide 35.1 H Anion Gap 7 BUN 15 Creatinine 0.47 L Estimated GFR Greater than 89 Random Glucose 172 H Calcium 8.9 Imaging Studies: Impressions Chest X-Ray 03/13/18 21:01 CONCLUSION: 1. Bibasilar patchiness consistent with probable pneumonia. 2. Emphysematous changes bilaterally. Medications: Active Medications Generic Name Dose Route Start Last Admin Trade Name Freq PRN Reason Stop Dose Admin Acetaminophen 650 mg 03/12/18 14:20 03/12/18 21:04 Tylenol PO 650 mg Q4H PRN Administration SEE LABEL COMMENTS Albuterol 1 ampul 03/13/18 21:01 03/14/18 03:23 Duoneb Neb (Prn) NEB 1 ampul Q4HR NEB PRN Administration SHORTNESS OF BREATH Albuterol 1 ampul 03/14/18 04:00 03/14/18 09:02 Duoneb Neb (Estela) NEB 1 ampul Q6HR NEB ESTELA Administration Amlodipine Besylate 5 mg 03/12/18 21:00 03/14/18 11:07 Norvasc PO 5 mg BID ESTELA Administration Diphenhydramine HCl 25 mg 03/12/18 14:20 03/12/18 21:04 Benadryl PO 25 mg Q4H PRN Administration SEE LABEL COMMENTS Potassium Chloride/Dextrose/Sod Cl 1,000 mls @ 30 mls/hr 03/13/18 12:45 03/13 13:45 D5w/1/2ns + Kcl 20 Meq Inj IV.CONT 30 mls/hr .Q24H [facility] Administration Piperacillin/Tazobactam/Dextrose 3.375 gm in 50 mls @ 100 mls/hr 03/14/18 04: 00 03/14/18 11:48 Zosyn 3.375 Gm Premix IV.SIG Infused Q6H [facility] Infusion Vancomycin HCl 500 mg/ Sodium 100 mls @ 200 mls/hr 03/14/18 10:00 03/14/18 12 :29 Chloride IV.SIG Infused Q12H [facility] Infusion Methadone HCl 10 mg 03/12/18 18:00 03/14/18 14:55 Dolophine PO Not Given TID ESTELA Senna/Docusate Sodium 1 tab 03/12/18 21:00 03/14/18 11:07 Casi-Colace PO 1 tab BID ESTELA Administration Sodium Chloride 2 ml 03/12/18 21:00 03/14/18 11:06 Ns Flush IV.FLUSH 2 ml BID ESTELA Administration Objective Remarks: GENERAL: Cachectic elderly woman. SKIN: Looks older than stated age. HEAD: Normocephalic. Limited ability to open mouth. EYES: No scleral icterus. No injection or drainage. NECK: Supple, trachea midline. No adenopathy. LYMPHATIC: No adenopathy. CARDIOVASCULAR: Regular rate and rhythm without murmurs. RESPIRATORY: Breath sounds equal bilaterally. No accessory muscle use. GASTROINTESTINAL: Abdomen soft, non-tender, nondistended. EXTREMITIES: No cyanosis, or edema. MUSCULOSKELETAL: Adequate muscle tone. NEUROLOGICAL: No obvious focal deficit. Awake, alert, and oriented x3. PSYCHIATRIC: Appropriate mood and affect; insight and judgment normal. Assessment/Plan - Plan 67-year-old woman with recurrent head and neck cancer. She is currently on immunotherapy. She was on hospice care. She was interested in continuing her immunotherapy. Had a lengthy discussion with outpatient who is deferring most of the decision to her daughter Ceci. I lengthy discussion with Tahira. She is torn about what to do. We discussed obtaining a CT scan of the head and neck to rule out progression of disease. If progression is identified which is suspected she is comfortable with proceeding with hospice care. We discussed the MRI of the brain to rule out new [employer] metastatic disease versus thromboembolic event given the supratherapeutic INR which is now corrected. She is on Coumadin for her atrial fibrillation. She was on Coumadin chronically even before her diagnosis of cancer. No more bleeding at present. Are recommend continue to hold the Coumadin until more stable. Hospice was consulted to review with the patient and daughter options available to them. I would be supportive of their decision to proceed with hospice. They need some objective evidence that she is progressed on immunotherapy and therefore not necessarily or prematurely giving up on treatment. I plan will be discussed with hospice nurse.
[2018-03-14] MEDS: KCL 20 mEq/D5W/NaCl 0.45% Inj 1,000 ML IV.CONT SCH ×2 (17:18→22:59)
[2018-03-14] MEDS: Acetaminophen-HYDROcodone 325/7.5 Liq 15 ML UDC PO PRN (18:41)
--- NOTE | 2018-03-14 20:10 | P.PNIM ---
Physical Exam Vital signs: Last Vital Signs Temp 98.6 F 03/14/18 16:00 Pulse 79 03/14/18 18:00 Resp 20 03/14/18 16:00 BP 120/58 L 03/14/18 16:00 Pulse Ox 91 L 03/14/18 16:00 Intake & Output 03/12/18 03/13/18 03/14/18 03/15/18 06:59 06:59 06:59 06:59 Intake Total 414 / 414 1370 / 1370 680 / 680 Output Total 600 / 600 Balance 414 / 414 1370 / 1370 80 / 80 Weight 28.2 kg 28.2 kg Results Labs CBC & Chem 7: 03/14/18 06:51 03/14/18 06:51 Imaging Imaging: Impressions Chest X-Ray 03/13/18 21:01 CONCLUSION: 1. Bibasilar patchiness consistent with probable pneumonia. 2. Emphysematous changes bilaterally. Progress Note: Quality VTE Deep Vein Thrombosis/Pulmonary Embolism Present on Admission: No
--- NOTE | 2018-03-14 20:31 | P.EN ---
Spoke with Ceci Cruz, patient's daughter (per palliative care progress note 02/09 - patient elected her daughter Ceci Cruz to serve as her HCS if she is unable to make her own decisions. She states she's spoken to her brother's and they are electing a DNI alternative code status. They are okay with her being on Bi-Pap if needed but absolutely they do not want her to be intubated or placed on mechanical ventilation.
[2018-03-14] MEDS ORDERED: Gadobutrol PF 2 MMOL/2 ML Vial (for RAD) IV.SIG ONE (21:23)
--- NOTE | 2018-03-14 22:15 | MR ---
EXAM DATE: 03/14/2018 10:05 PM EST AGE/SEX: 67 years / Female INDICATIONS: Mass. Recent loss of vision. CLINICAL DATA: This is the patient's initial encounter. Patient reports that signs and symptoms have been present for 2 days and indicates a pain score of 9/10. MEDICAL/SURGICAL HISTORY: Hypertension. Neck cancer . 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 COMPARISON: [facility], MRA NECK W CONTRAST, 09/30/2017. . TECHNIQUE: Multiplanar, multisequence examination of the brain was performed without and with 3 ml Ga davist (gadobutrol) contrast as a single exam dose. FINDINGS: There are patchy areas of restricted diffusion involving the temporal regions and occipital regions b ilaterally with extension into the mid convexity to high convexity right parietal region. There is al so encephalomalacia and laminar necrosis involving portions of the left occipital and right parieto-o ccipital cortices associated with old strokes in adjacent territories. Elsewhere, there is patchy white matter T2 prolongation which appears microvascular ischemic in etiol ogy. There is no evidence of mass or hemorrhage. There is a large mass in the central to left nasopharynx and oropharynx. This could be better evaluat ed with soft tissue CT neck examination with contrast if clinically indicated. CONCLUSION: New and old strokes as described. No definite metastatic disease to brain at present Electronically signed by: Simeon Ambriz MD Board Certified Radiologist 03/14/2018 10:14 PM EST
[2018-03-15] MEDS: Piperacil/Tazo 3.375 GM Premix 3.375 GM/50 ML PIGGYBACK IV.SIG SCH ×3 (03:03→15:20)
[2018-03-15 06:19] LABS: INR 1.8 Ratio; Prothrombin Time 18.2 sec (9.8-11.6)
[2018-03-15] MEDS: Methadone 10 MG Tablet PO SCH ×2 (09:17→12:38)
[2018-03-15] MEDS: Senna/Docusate Sodium 8.6/50 MG Tablet PO SCH (09:18)
[2018-03-15] MEDS: amLODIPine 5 MG Tablet PO SCH (09:18)
--- NOTE | 2018-03-15 09:21 | P.PNONC ---
Subjective Interval history: Pt seen and examined. Wanted something to drink. Objective Vital Signs/Intake & Output: Vital Signs 03/14/18 09:25 03/14/18 10:00 03/14/18 11:47 Temperature Pulse Rate 103 H Respiratory Rate 22 Blood Pressure Pulse Oximetry 98 03/14/18 12:00 03/14/18 14:00 03/14/18 15:42 Temperature 98.7 F Pulse Rate 73 87 81 Respiratory Rate 35 H 18 Blood Pressure 99/51 L Pulse Oximetry 96 03/14/18 16:00 03/14/18 18:00 03/14/18 20:00 Temperature 98.6 F 98.0 F Pulse Rate 90 79 88 Respiratory Rate 20 21 Blood Pressure 120/58 L Pulse Oximetry 91 L 94 L 03/14/18 20:01 03/14/18 21:00 03/14/18 21:53 Temperature Pulse Rate 96 H 80 86 Respiratory Rate 21 21 18 Blood Pressure 118/55 L Pulse Oximetry 96 98 94 L 03/14/18 22:00 03/14/18 22:10 03/14/18 22:14 Temperature Pulse Rate 100 H 83 Respiratory Rate 21 20 Blood Pressure 114/56 L Pulse Oximetry 92 L 93 L 92 L 03/14/18 23:00 03/14/18 23:16 03/15/18 00:00 Temperature 98.2 F Pulse Rate 76 77 75 Respiratory Rate 13 16 15 Blood Pressure 109/51 L 97/55 L Pulse Oximetry 92 L 93 L 95 03/15/18 01:00 03/15/18 02:00 03/15/18 02:52 Temperature Pulse Rate 74 82 81 Respiratory Rate 13 16 18 Blood Pressure 107/53 L 104/55 L Pulse Oximetry 93 L 96 03/15/18 03:00 03/15/18 04:00 03/15/18 06:00 Temperature Pulse Rate 92 H 81 73 Respiratory Rate 21 21 Blood Pressure 109/54 L 93/52 L Pulse Oximetry 92 L 90 L 03/15/18 07:22 03/15/18 07:23 Temperature Pulse Rate 101 H Respiratory Rate 18 Blood Pressure Pulse Oximetry 94 L Intake & Output 03/14/18 03/15/18 03/15/18 18:59 06:59 18:59 Intake Total 680 / 680 1220 / 1220 Output Total 600 / 600 400 / 400 Balance 80 / 80 820 / 820 Weight 28.6 kg Intake: IV 200 / 200 1120 / 1120 D5W/1/2NS + KCL 20 mEq Inj 1, 950 / 950 000 ML @ 30 mls/hr IV.CONT . Q24H [facility] Rx#:[id number] Zosyn 3.375 GM Premix 3.375 gm 100 / 100 85 / 85 In 50 ml @ 100 mls/hr IV.SIG Q6H [facility] Rx#:[id number] Vancomycin Inj 500 MG In NS Inj 100 / 100 85 / 85 100 ML @ 200 mls/hr IV.SIG Q12H [facility] Rx#:[id number] Tube Feeding 480 / 480 Tube Irrigant 100 / 100 Output: Urine 600 / 600 400 / 400 Other: # Voids 3 # Bowel Movements 0 Result Diagrams: 03/14/18 06:51 03/14/18 06:51 Laboratory Results: Laboratory Results - last 24 hr 03/15/18 05:55 PT 18.2 H INR 1.8 Imaging Studies: Impressions Head MRI 03/14/18 00:00 CONCLUSION: New and old strokes as described. No definite metastatic disease to brain at present Medications: Active Medications Generic Name Dose Route Start Last Admin Trade Name Freq PRN Reason Stop Dose Admin Acetaminophen 650 mg 03/12/18 14:20 03/12/18 21:04 Tylenol PO 650 mg Q4H PRN Administration SEE LABEL COMMENTS Hydrocodone Bitart/Acetaminophen 15 ml 03/13/18 12:26 03/14/18 18:41 Hycet 325/7.5 Mg Liq PO 15 ml Q4H PRN Administration Pain 1-10 Albuterol 1 ampul 03/13/18 21:01 03/14/18 03:23 Duoneb Neb (Prn) NEB 1 ampul Q4HR NEB PRN Administration SHORTNESS OF BREATH Albuterol 1 ampul 03/14/18 04:00 03/15/18 07:21 Duoneb Neb (Estela) NEB 1 ampul Q6HR NEB [facility]ELA Administration Amlodipine Besylate 5 mg 03/12/18 21:00 03/14/18 20:26 Norvasc PO 5 mg BID ESTELA Administration Diphenhydramine HCl 25 mg 03/12/18 14:20 03/12/18 21:04 Benadryl PO 25 mg Q4H PRN Administration SEE LABEL COMMENTS Potassium Chloride/Dextrose/Sod Cl 1,000 mls @ 30 mls/hr 03/13/18 12:45 03/14 22:59 D5w/1/2ns + Kcl 20 Meq Inj IV.CONT 30 mls/hr .Q24H [facility] Administration Piperacillin/Tazobactam/Dextrose 3.375 gm in 50 mls @ 100 mls/hr 03/14/18 04: 00 03/15/18 03:40 Zosyn 3.375 Gm Premix IV.SIG Infused Q6H [facility] Infusion Vancomycin HCl 500 mg/ Sodium 100 mls @ 200 mls/hr 03/14/18 10:00 03/14/18 23 :25 Chloride IV.SIG Infused Q12H [facility] Infusion Methadone HCl 10 mg 03/12/18 18:00 03/14/18 20:36 Dolophine PO 10 mg TID ESTELA Administration Senna/Docusate Sodium 1 tab 03/12/18 21:00 03/14/18 20:26 Casi-Colace PO 1 tab BID ESTELA Administration Sodium Chloride 2 ml 03/12/18 21:00 03/14/18 20:26 Ns Flush IV.FLUSH 2 ml BID [facility]ELA Administration Objective Remarks: GENERAL: Cachectic, well-developed patient. SKIN: Warm and dry. Difficulty opening mouth. HEAD: Normocephalic. EYES: No scleral icterus. No injection or drainage. NECK: Supple, trachea midline. No JVD or lymphadenopathy. LYMPHATIC: No adenopathy. CARDIOVASCULAR: Regular rate and rhythm without murmurs. RESPIRATORY: Breath sounds equal bilaterally. No accessory muscle use. GASTROINTESTINAL: Abdomen soft, non-tender, nondistended. EXTREMITIES: No cyanosis, or edema. MUSCULOSKELETAL: Adequate muscle tone. NEUROLOGICAL: No obvious focal deficit. Awake, alert, and oriented x3. Assessment/Plan - Plan 67-year-old woman with recurrent head and neck cancer. She is currently on immunotherapy. She was previously on hospice care with [facility]. She was admitted for supratherapeutic INR. MRI brain with cuts of pharynx reviewed with radiology. Comparison made with pre treatment CT/PET. The oropharyngeal mass is clearly larger. There is progression of disease despite XRT and first line immunotherapy. No bleeding. Pain controlled on methadone. Anticipate continue palliation of symptoms with hospice care. Anticoagulant therapy held for now in light of recent bleeding. Daughter Ceci called. Left message on her voice mail and attempt to call her again later. As discussed with Ccei, hospice is appropriate for her mother. Patient is deferring decision to her daughter. Hospice called, [facility], she is a candidate for care center if bed available. However defer to her family. She was cared for at home by daughter. MRI brain show new CVA which explains her new vision loss. Discussed w/ Dr. Churchill.
--- NOTE | 2018-03-15 10:26 | P.PN ---
Subjective Interval history: Follow-up [place] carcinoma of the oropharynx/healthcare associated pneumonia -March 14, 2018-patient seen and examined at bedside. Overnight patient was transferred to CICU and initially started on IV antibiotic for HCAP; however due to respiratory failure she was transferred up to [facility] and placed on BiPAP. This a.m., patient's family member very upset regarding the aggressive treatment patient has been receiving. They also want [facility] to be consulted. There is no more episode of bleeding. INR now therapeutic. -March 15, 2018-patient seen and examined, asking if she can have something to drink. Case discussed with Dr. Corea who stated patient's cancer has progressed and that patient is an appropriate candidate for hospice. Patient is currently DNI Physical Exam Vital signs: Vital Signs 03/14/18 11:47 03/14/18 12:00 03/14/18 14:00 Temperature 98.7 F Pulse Rate 73 87 Respiratory Rate 22 35 H Blood Pressure 99/51 L Pulse Oximetry 96 03/14/18 15:42 03/14/18 16:00 03/14/18 18:00 Temperature 98.6 F Pulse Rate 81 90 79 Respiratory Rate 18 20 Blood Pressure 120/58 L Pulse Oximetry 91 L 03/14/18 20:00 03/14/18 20:01 03/14/18 21:00 Temperature 98.0 F Pulse Rate 88 96 H 80 Respiratory Rate 21 21 21 Blood Pressure 118/55 L Pulse Oximetry 94 L 96 98 03/14/18 21:53 03/14/18 22:00 03/14/18 22:10 Temperature Pulse Rate 86 100 H Respiratory Rate 18 21 Blood Pressure Pulse Oximetry 94 L 92 L 93 L 03/14/18 22:14 03/14/18 23:00 03/14/18 23:16 Temperature Pulse Rate 83 76 77 Respiratory Rate 20 13 16 Blood Pressure 114/56 L 109/51 L Pulse Oximetry 92 L 92 L 93 L 03/15/18 00:00 03/15/18 01:00 03/15/18 02:00 Temperature 98.2 F Pulse Rate 75 74 82 Respiratory Rate 15 13 16 Blood Pressure 97/55 L 107/53 L 104/55 L Pulse Oximetry 95 93 L 96 03/15/18 02:52 03/15/18 03:00 03/15/18 04:00 Temperature Pulse Rate 81 92 H 81 Respiratory Rate 18 21 21 Blood Pressure 109/54 L 93/52 L Pulse Oximetry 92 L 90 L 03/15/18 05:00 03/15/18 06:00 03/15/18 07:00 Temperature Pulse Rate 90 75 73 Respiratory Rate 23 20 15 Blood Pressure 99/53 L 101/51 L 105/53 L Pulse Oximetry 88 L 93 L 92 L 03/15/18 07:22 03/15/18 07:23 03/15/18 08:00 Temperature 98.4 F Pulse Rate 101 H 73 Respiratory Rate 18 21 Blood Pressure 102/52 L Pulse Oximetry 94 L 90 L 03/15/18 09:00 03/15/18 10:00 Temperature Pulse Rate 76 75 Respiratory Rate 23 30 H Blood Pressure 106/51 L 101/50 L Pulse Oximetry 88 L 88 L Intake & Output 03/14/18 03/15/18 03/15/18 18:59 06:59 18:59 Intake Total 680 / 680 1220 / 1220 50 / 50 Output Total 600 / 600 400 / 400 Balance 80 / 80 820 / 820 50 / 50 Weight 28.6 kg Intake: IV 200 / 200 1120 / 1120 50 / 50 D5W/1/2NS + KCL 20 mEq Inj 1, 950 / 950 000 ML @ 30 mls/hr IV.CONT . Q24H ANAIS Rx#:[id number] Zosyn 3.375 GM Premix 3.375 gm 100 / 100 85 / 85 50 / 50 In 50 ml @ 100 mls/hr IV.SIG Q6H ANAIS Rx#:[id number] Vancomycin Inj 500 MG In NS Inj 100 / 100 85 / 85 100 ML @ 200 mls/hr IV.SIG Q12H ANAIS Rx#:[id number] Tube Feeding 480 / 480 Tube Irrigant 100 / 100 Output: Urine 600 / 600 400 / 400 Other: # Voids 3 # Bowel Movements 0 Narrative: GENERAL: lethargic and sick looking elderly female SKIN: Warm and dry. HEAD: Normocephalic. EYES: No scleral icterus. No injection or drainage. NECK: Supple, trachea midline. No JVD or lymphadenopathy. CARDIOVASCULAR: Regular rate and rhythm without murmurs, gallops, or rubs. RESPIRATORY: Breath sounds decreased bilaterally. No accessory muscle use. GASTROINTESTINAL: Abdomen soft, non-tender, nondistended. PEG tube in place MUSCULOSKELETAL: No cyanosis, or edema. BACK: Nontender without obvious deformity. No CVA tenderness. Results - Labs CBC & Chem 7: 03/14/18 06:51 03/14/18 06:51 Laboratory Results - last 24 hr 03/15/18 05:55 PT 18.2 H INR 1.8 - Imaging Impressions Head MRI 03/14/18 00:00 CONCLUSION: New and old strokes as described. No definite metastatic disease to brain at present Assessment and Plan - Plan 67-year-old female with Supratherapeutic INR Now resolved status post treatment with FFP and vitamin K History of squamous cell carcinoma of the oropharynx Management per oncology. Per discussion today March [address] Sands, The oropharyngeal mass is clearly larger. There is progression of disease despite XRT and first line immunotherapy Patient is currently DNI, and awaiting possible admission to hospice HCAP with respiratory failure Patient was started on IV Zosyn and vancomycin overnight Currently on BiPAP, however family members does not want her to have any aggressive treatment, therefore BiPAP will be DC History of CVA Head MRI noted and reviewed with finding of New and old strokes Coumadin on hold secondary to supratherapeutic, however with patient's declining health will advised to discontinue Coumadin Poor prognosis Hospice has been consulted, and awaiting decision from family member Dietitian consultation pending for tube feed
--- NOTE | 2018-03-15 11:47 | P.DS ---
Date of admission: 03/12/18 14:55 Primary care physician: UNKNOWN Brief History from admission: 67-year-old female with a history of squamous cell carcinoma of the oropharynx, CVA, hypertension presents to the ER after she had an onset of bleeding in her mouth. She takes Coumadin to reduce her risk of CVA but recently started on a new palliative chemotherapy and her Coumadin has increased since it was last checked. She presents today with a supratherapeutic Coumadin level, INR is 16.9. ER physician has ordered fresh frozen plasma and a dose of vitamin K, both of which will likely need to be repeated following her evaluation with INR. She is currently under care of Dr. Sands for her oncological treatments. She is on modified hospice with [facility]. She denies any fevers, denies cough, denies any difficulty with respiration. She denies chest pain, denies arrhythmia. She denies any diarrhea or GI bleeding. She denies hematuria. DS: Summary Hospital Course: Prior to discharging patient to hospice, she was treated for supratherapeutic INR with fresh frozen plasma and vitamin K. Hematology was consulted secondary to patient's history of squamous cell carcinoma oropharynx and brain MRI was obtained which showed progressively worse disease. Family agrees at this time for patient to be discharged to hospice care center. - Time Spent with Patient Total time spent providing and/or coordinating discharge services: Greater than 30 minutes - Quality: VTE Deep Vein Thrombosis/Pulmonary Embolism Present on Admission: No Exam Vital signs: Vital Signs 03/14/18 11:47 03/14/18 12:00 03/14/18 14:00 Temperature 98.7 F Pulse Rate 73 87 Respiratory Rate 22 35 H Blood Pressure 99/51 L Pulse Oximetry 96 03/14/18 15:42 03/14/18 16:00 03/14/18 18:00 Temperature 98.6 F Pulse Rate 81 90 79 Respiratory Rate 18 20 Blood Pressure 120/58 L Pulse Oximetry 91 L 03/14/18 20:00 03/14/18 20:01 03/14/18 21:00 Temperature 98.0 F Pulse Rate 88 96 H 80 Respiratory Rate 21 21 21 Blood Pressure 118/55 L Pulse Oximetry 94 L 96 98 03/14/18 21:53 03/14/18 22:00 03/14/18 22:10 Temperature Pulse Rate 86 100 H Respiratory Rate 18 21 Blood Pressure Pulse Oximetry 94 L 92 L 93 L 03/14/18 22:14 03/14/18 23:00 03/14/18 23:16 Temperature Pulse Rate 83 76 77 Respiratory Rate 20 13 16 Blood Pressure 114/56 L 109/51 L Pulse Oximetry 92 L 92 L 93 L 03/15/18 00:00 03/15/18 01:00 03/15/18 02:00 Temperature 98.2 F Pulse Rate 75 74 82 Respiratory Rate 15 13 16 Blood Pressure 97/55 L 107/53 L 104/55 L Pulse Oximetry 95 93 L 96 03/15/18 02:52 03/15/18 03:00 03/15/18 04:00 Temperature Pulse Rate 81 92 H 81 Respiratory Rate 18 21 21 Blood Pressure 109/54 L 93/52 L Pulse Oximetry 92 L 90 L 03/15/18 05:00 03/15/18 06:00 03/15/18 07:00 Temperature Pulse Rate 90 75 73 Respiratory Rate 23 20 15 Blood Pressure 99/53 L 101/51 L 105/53 L Pulse Oximetry 88 L 93 L 92 L 03/15/18 07:22 03/15/18 07:23 03/15/18 08:00 Temperature 98.4 F Pulse Rate 101 H 73 Respiratory Rate 18 21 Blood Pressure 102/52 L Pulse Oximetry 94 L 90 L 03/15/18 09:00 03/15/18 10:00 Temperature Pulse Rate 76 75 Respiratory Rate 23 30 H Blood Pressure 106/51 L 101/50 L Pulse Oximetry 88 L 88 L Intake & Output 03/14/18 03/15/18 03/15/18 18:59 06:59 18:59 Intake Total 680 / 680 1220 / 1220 50 / 50 Output Total 600 / 600 400 / 400 Balance 80 / 80 820 / 820 50 / 50 Weight 28.6 kg Intake: IV 200 / 200 1120 / 1120 50 / 50 D5W/1/2NS + KCL 20 mEq Inj 1, 950 / 950 000 ML @ 30 mls/hr IV.CONT . Q24H ANAIS Rx#:[id number] Zosyn 3.375 GM Premix 3.375 gm 100 / 100 85 / 85 50 / 50 In 50 ml @ 100 mls/hr IV.SIG Q6H ANAIS Rx#:[id number] Vancomycin Inj 500 MG In NS Inj 100 / 100 85 / 85 100 ML @ 200 mls/hr IV.SIG Q12H ANAIS Rx#:[id number] Tube Feeding 480 / 480 Tube Irrigant 100 / 100 Output: Urine 600 / 600 400 / 400 Other: # Voids 3 # Bowel Movements 0 Narrative: GENERAL: lethargic and sick looking elderly female SKIN: Warm and dry. HEAD: Normocephalic. EYES: No scleral icterus. No injection or drainage. NECK: Supple, trachea midline. No JVD or lymphadenopathy. CARDIOVASCULAR: Regular rate and rhythm without murmurs, gallops, or rubs. RESPIRATORY: Breath sounds decreased bilaterally. No accessory muscle use. GASTROINTESTINAL: Abdomen soft, non-tender, nondistended. PEG tube in place MUSCULOSKELETAL: No cyanosis, or edema. BACK: Nontender without obvious deformity. No CVA tenderness. Results Procedures completed during hospitalization: none Labs on day of discharge: Labs from last 24 hours 03/15/18 05:55 PT 18.2 H INR 1.8 - Impressions ITS Impressions Chest X-Ray 03/13/18 21:01 CONCLUSION: 1. Bibasilar patchiness consistent with probable pneumonia. 2. Emphysematous changes bilaterally. Head MRI 03/14/18 00:00 CONCLUSION: New and old strokes as described. No definite metastatic disease to brain at present Discharge Plan - Discharge Disposition Patient Disposition: [facility] Hosp[facility] Facility - Discharge Condition Condition: Critical - Discharge Order Discharge Orders: Discharge Order (Routine); Ordered 03/15/18 Ordered By: Gabriel Churchill - Discharge Details Anticipated Discharge Date: 03/14/18 - Physicians Team Primary Care Provider: UNKNOWN, Attending Provider: Gabriel Churchill Other Providers: Usha Zuniga ; Ruth Sands MD
[2018-03-15] MEDS: KCL 20 mEq/D5W/NaCl 0.45% Inj 1,000 ML IV.CONT SCH (12:38)
[2018-03-15] MEDS: Acetaminophen-HYDROcodone 325/7.5 Liq 15 ML UDC PO PRN (16:09)
[2018-03-16] MEDS ORDERED: Pharmacy Ordered Lab Info OTHER ONE (09:45)
== END 2018-03-15 17:15 | disposition hospice, inpatient (51) ==
LOC: NEPD 11:00 → NEDA 14:55 → N05 17:30 → HCIS 03-14 04:15 → HIMC 03-14 08:15
PROVIDERS: ADMIT Hospitalist; ATTEND Hospitalist